=== PATIENT | female | born 1940 | race Caucasian/White ===

== ENCOUNTER 2016-06-21 14:50 | Inpatient (IN) | payer OTHER, MEDICAID ==
[2016-06-21] MEDS ORDERED: NS 1,000 ML BAG *FOR SEPSIS ORDER SET ONLY IV ONE (14:56)
--- NOTE | 2016-06-21 15:01 | EDPHY ---
H & P HPI/ROS: CHIEF COMPLAINT: Altered mental status, fever, hypoxia HISTORY OF PRESENT ILLNESS: The patient is a 75-year-old female brought by EMS from [facility] for confusion, hypoxia and fever. Her daughter went to visit her this morning and noticed that she seemed confused and cannot make it down the samuels as well as usual. She has a history of COPD but does not wear oxygen at baseline. When EMS arrived her oxygen sats were 71% room air. She also has a fever of 100.2 degrees. She does have a history of diabetes, falls and dementia but seems more confused than baseline. No focal deficits. No slurred speech or facial droop. No signs of trauma. REVIEW OF SYSTEMS: Unable to obtain secondary to condition. EXAM: GENERAL: Well-appearing, well-nourished and in no acute distress. HEAD: Atraumatic, normocephalic. EYES: Pupils equal round and reactive to light, extraocular movements intact, sclera anicteric, conjunctiva are normal. ENT: TMs normal, nares patent, oropharynx clear without exudates. Moist mucous membranes. NECK: Normal range of motion, supple without lymphadenopathy or JVD. LUNGS: Bilateral rhonchi HEART: Regular rate and rhythm without murmurs, rubs or gallops. ABDOMEN: Multiple scars, surgical hernia, Soft, nontender, normoactive bowel sounds. No guarding, no rebound. BACK: No CVA tenderness, no spinal tenderness, step-offs or deformities EXTREMITIES: Normal range of motion, no pitting or edema. No clubbing or cyanosis. NEUROLOGICAL: Cranial nerves II through XII grossly intact. Normal speech, normal gait. 5/5 strength, normal movement in all extremities, normal sensation PSYCH: unable to assess SKIN: Warm, dry, normal turgor, no visible rashes or lesions. Source: Patient Exam Limitations: No limitations - Medical/Surgical History Hx Asthma: No Hx Chronic Respiratory Disease: No Hx Diabetes: No Hx Cardiac Disease: No Hx Renal Disease: No Hx Cirrhosis: No Hx Alcoholism: No - Family History Significant Family History: Hypertension - Social History Alcohol Use: Sober Drug Use: None Constitutional: Initial Vital Signs Temperature (C) 36.9 C 06/21/16 15:15 Heart Rate 79 06/21/16 15:15 Respiratory Rate 17 06/21/16 15:15 Blood Pressure 103/68 06/21/16 15:15 O2 Sat (%) 98 06/21/16 15:15 O2 Delivery Mode [Procedural Nasal Cannula,Non-Rebreather Mask 3rd] O2 Delivery Mode [Procedural Non-Rebreather Mask 2nd] O2 Delivery Mode [Procedural Blowby 1st] O2 Delivery Mode Nasal Cannula O2 (L/minute) [Procedural 3rd] 15 O2 (L/minute) [Procedural 1st] 15 O2 (L/minute) 2 Allergies/Adverse Reactions: propoxyphene Allergy (Verified 06/21/16 15:11) Home Medications: Medication Instructions Recorded Acetaminophen [Tylenol ES 500 mg 500 mg PO Q6 PRN 06/21/16 (*)] Acetaminophen [Tylenol ES 500 mg 500 mg PO TID 06/21/16 (*)] Cholecalciferol Vit D3 [Vitamin D3 50,000 unit PO Q30D 06/21/16 (*)] Citalopram Hydrobromide 20 mg PO DAILY 06/21/16 [Citalopram HBr] LORazepam [Ativan (*)] 0.5 mg PO DAILY PRN 06/21/16 LORazepam [Ativan (*)] 0.5 mg PO QID 06/21/16 Levothyroxine [Synthroid 50 mcg 50 mcg PO DAILY@20 06/21/16 (*)] Lisinopril [Zestril 10 mg (*)] 10 mg PO DAILY 06/21/16 Memantine HCl [Namenda 10 mg] 10 mg PO BID 06/21/16 Metoprolol Tartrate [Lopressor 25 25 mg PO DAILY 06/21/16 mg (*)] QUEtiapine FUMARATE [Seroquel 25 12.5 mg PO DAILY 06/21/16 mg (*)] QUEtiapine FUMARATE [Seroquel 25 25 mg PO DAILY16 06/21/16 mg (*)] Sennosides/Docusate Sodium 1 each PO BID@,16 06/21/16 [Senokot-S (OTC)] Tiotropium Inhaler [Spiriva 1 inh IH DAILY 06/21/16 Inhaler] metFORMIN HCL [Glucophage 500 mg 500 mg PO DAILY18 06/21/16 (*)] metFORMIN HCL [Glucophage 850 mg 850 mg PO DAILY@08 06/21/16 (*)] Medical Decision Making - Diagnostics Imaging: X-ray: chest x-ray was obtained. I viewed the images myself on the PACS system. My interpretation of the images is: Left lower lobe pneumonia. The radiologist interpretation is left lower lobe pneumonia. Procedures: Procedure: Central line placement. Indication: Sepsis. Verbal informed consent was obtained from daughter, with the risks explained to include but not be limited to bleeding, infection, and collapsed lung. A timeout was observed and patients identity and correct procedure location confirmed. Full maximal sterile barrier technique was uses including cap, gown , sterile gloves, large sheet, hand washing and chlorhexidine prep. The area anesthetized with 1% lidocaine. The right IJ was punctured with a 19 gauge finder needle, unfortunately however guidewire was not able to be placed. Patient continued to move and had collapsible veins. Abandoned after 3 attempts CXR results: No pneumothorax. X-ray was interpreted by myself. The procedure was performed by myself. Procedure: Central line placement. Indication: Sepsis. Verbal informed consent was obtained from daughter, with the risks explained to include but not be limited to bleeding, infection, and collapsed lung. A timeout was observed and patients identity and correct procedure location confirmed. Full maximal sterile barrier technique was uses including cap, gown , sterile gloves, large sheet, hand washing and chlorhexidine prep. The area anesthetized with 1% lidocaine. The right femoral vein was punctured with a 19 gauge finder needle, then a triple-lumen was placed using standard Seldinger technique. There were no complications. Brown port was not returning blood but white and blue were and easily flushed well. The procedure was performed by myself. Procedure: Procedural sedation. Indication: Line placement. A pre-sedation evaluation was completed on the patient just prior to the procedure. Patient is an appropriate candidate for procedural sedation with a [ normal] 3-3-2 rule assessment and a Mallampati airway score of class 2. The risks of the sedation were discussed including but not limited to dysrhythmia, need for airway intervention or general anesthesia, disability, ; and verbal consent obtained. A timeout was observed and patient's identity confirmed. The patient was sedated with ketamine 150 mg IM. The patient was monitored with continuous pulse oximetry, capnography, and traffic monitor specialist. There were no complications and no significant hypoxemia. I remained at the bedside for the sedation. The total time I spent in the procedural sedation was 20 minutes. ED Course/Re-evaluation: 3:15 p.m. the patient's daughter has arrived. she states that the patient was acting confused and combative 2 weeks ago and improved after Levaquin for urinary tract infection. She is on day 9 or 10 of the Levaquin. Symptoms initially improved but then began to worsen again. She states that the patient has had a cough and coarse breath sounds for the last 2 days and is becoming gradually more confused. She also had diarrhea 2 days ago. I suspect pneumonia , sepsis and will add on a C diff. 4:20 p.m. the patient has pneumonia and sepsis. She is currently hypertensive. She has not received any fluids because of difficulty with IV access. I will perform a central line. 4:30 p.m. I attempted to place a central line in the patient's right IJ. The vein was punctured several times however the patient would move during attempts to insert guidewire. Also her vein collapse due to dehydration. After 3 attempts the site was abandoned and pressure was held and will obtain a chest x- ray. Will try again with a femoral line and sedation. 5:30 p.m. I placed a central line in the right femoral vein. We will begin resuscitation with IV fluids. I spoke with Dr. John Donato who will admit and requested Zosyn. 7:00 p.m. the patient is becoming slightly hypotensive. She has not yet received most for fluid bolus. Will continue with this. Will order Zaidi catheter for in and out monitoring. She does have collapse of her IVC with inhalation. We changed her to a step-down bed. Differential Diagnosis: Partial list of the Differential diagnosis considered include but were not limited to; pneumonia, sepsis, urinary tract infection, C diff and although unlikely based on the history and physical exam, I also considered head injury, stroke. Critical Care Time: Critical care time spent by me, Dr. Olguin exclusive with this patient was 45 minutes, exclusive of the PA time exclusive of procedures. The organ system that was at risk was cardiovascular and pulmonary and I gave IV fluids, consultation, antibiotics to prevent worsening of the patient's condition - Data Points Laboratory Results: Laboratory Results 06/21/16 15:21 06/21/16 15:21 06/21/16 06/21/16 06/21/16 15:21 15:21 15:21 WBC TNP RBC TNP Hgb TNP Hct TNP MCV TNP MCH TNP MCHC TNP RDW TNP Plt Count TNP MPV TNP Neut % (Auto) TNP Lymph % (Auto) TNP [place] % (Auto) TNP Eos % (Auto) TNP Baso % (Auto) TNP Nucleat RBC Rel Count TNP Absolute Neuts (auto) TNP Absolute Lymphs (auto) TNP Absolute Monos (auto) TNP Absolute Eos (auto) TNP Absolute Basos (auto) TNP Absolute Nucleated RBC TNP Immature Gran % TNP Immature Gran # TNP PT 13.2 SEC SEC (12.0-15.0) INR 1.01 (0.83-1.16) APTT 20.0 SEC L SEC (23.0-38.0) VBG Lactic Acid Sodium 138 mEq/L mEq/L (134-144) Potassium 4.6 mEq/L mEq/L (3.5-5.2) Chloride 103 mEq/L mEq/L (97-110) Carbon Dioxide 21 mEq/l L mEq/l (22-31) Anion Gap 14 mEq/L mEq/L (8-16) BUN 30 mg/dL H mg/dL (7-23) Creatinine 1.0 mg/dL mg/dL (0.6-1.0) Estimated GFR 54 Glucose 265 mg/dL H mg/dL (70-100) Calcium 9.8 mg/dL mg/dL (8.5-10.4) Total Bilirubin 1.1 mg/dL mg/dL (0.1-1.4) 06/21/16 15:11 WBC RBC Hgb Hct MCV MCH MCHC RDW Plt Count MPV Neut % (Auto) Lymph % (Auto) [place] % (Auto) Eos % (Auto) Baso % (Auto) Nucleat RBC Rel Count Absolute Neuts (auto) Absolute Lymphs (auto) Absolute Monos (auto) Absolute Eos (auto) Absolute Basos (auto) Absolute Nucleated RBC Immature Gran % Immature Gran # PT INR APTT VBG Lactic Acid 2.5 mmol/L H mmol/L (0.7-2.1) Sodium Potassium Chloride Carbon Dioxide Anion Gap BUN Creatinine Estimated GFR Glucose Calcium Total Bilirubin Medications Given: Discontinued Medications Acetaminophen (Tylenol) 1,000 mg PO EDNOW ONE Stop: 06/21/16 18:57 Last Admin: 06/21/16 18:56 Dose: 1,000 mg Piperacillin/Tazobactam/Dextrose (Zosyn (Premix)) 100 mls @ 200 mls/hr IV EDNOW ONE PRN Reason: Protocol Stop: 06/21/16 18:13 Last Admin: 06/21/16 18:51 Dose: 100 mls Ketamine HCl (Ketamine) 120 mg IM EDNOW ONE Stop: 06/21/16 17:18 Last Admin: 06/21/16 17:20 Dose: 120 mg Sodium Chloride (Ns *For Sepsis Order Set Only*) 0 ml IV EDNOW ONE Stop: 06/21/16 14:57 Last Admin: 06/21/16 17:49 Dose: 2,600 ml Departure - Departure Disposition: [facility] Inpatient Acute Clinical Impression: Pneumonia Qualifiers: Pneumonia type: due to unspecified organism Laterality: left Lung location: lower lobe of lung Qualified Code(s): J18.1 - Lobar pneumonia, unspecified organism Sepsis Qualifiers: Sepsis type: sepsis due to unspecified organism Qualified Code(s): A41.9 - Sepsis, unspecified organism Condition: Critical
[2016-06-21 15:40] LABS: ADD DIFF? NO; ADD MORPH? NO
[2016-06-21 15:48] LABS: INR 1.01 (0.83-1.16); PROTIME(PATIENT) 13.2 SEC (12.0-15.0)
[2016-06-21 16:06] LABS: BILIRUBIN,TOTAL 1.1 mg/dL (0.1-1.4); CALCIUM 9.8 mg/dL (8.5-10.4); CARBON DIOXIDE 21 mEq/l (22-31); CHLORIDE 103 mEq/L (97-110); GLOMERULAR FILTRATION RATE 54; GLUCOSE 265 mg/dL (70-100); SODIUM 138 mEq/L (134-144)
[2016-06-21] MEDS ORDERED: LORazepam 1 MG TAB ONE (16:17)
[2016-06-21 16:19] LABS: ANION GAP 14 mEq/L (8-16); POTASSIUM 4.6 mEq/L (3.5-5.2)
[2016-06-21 16:31] LABS: LACGHOST ORDER
[2016-06-21] MEDS ORDERED: KETAMINE 500 MG/10 ML VIAL ONE (17:02)
[2016-06-21] MEDS ORDERED: KETAMINE 500 MG/10 ML VIAL IM ONE (17:17)
[2016-06-21] MEDS ORDERED: PIPERACILLIN/TAZO 4.5 GM/DEX 100 ML IV ONE (17:44)
[2016-06-21 17:55] LABS: % IMMATURE GRANULYOCYTES 0.6 % (0.0-1.1); ADD DIFF? NO; ADD MORPH? NO; ADD SCAN? NO; ATYPICAL LYMPHOCYTE FLAG 0 (0-99); FRAGMENT RBC FLAG 0 (0-99); HEMATOCRIT 36.6 % (38.0-47.0); LEFT SHIFT FLG 0 (0-99); LIPEMIA HEMOLYSIS FLAG 80 (0-99); MEAN CELL HEMOGLOBIN 28.8 pg (27.9-34.1); MEAN CELL HEMOGLOBIN CONCENTR. 32.8 g/dL (32.4-36.7); PLATELET CLUMPS FLAG 0 (0-99); PLATELET COUNT 205 10^3/uL (150-400); RED BLOOD CELL COUNT 4.16 10^6/uL (4.18-5.33); RED CELL DISTRIBUTION WIDTH 14.4 % (11.5-15.2)
[2016-06-21] MEDS ORDERED: ACETAMINOPHEN 500 MG TAB ONE (18:09)
[2016-06-21] MEDS ORDERED: ACETAMINOPHEN 500 MG TAB PO ONE (18:56)
[2016-06-21 19:24] LABS: COLOR YELLOW; LEUKOCYTE ESTERASE,URINE 1+ (NEGATIVE); NITRITE,URINE NEGATIVE (NEGATIVE)
[2016-06-21 19:31] LABS: MUCUS TRACE /lpf (NONE-1+); RBC,URINE 25-50 /hpf (0-3); WBC,URINE 15-25 /hpf (0-3)
[2016-06-21] MEDS ORDERED: ONDANSETRON 4 MG/2 ML VIAL IVP PRN (20:13)
[2016-06-21] MEDS ORDERED: ONDANSETRON DISINTEGRATING 4 MG TAB PO PRN (20:13)
[2016-06-21] MEDS ORDERED: ACETAMINOPHEN 325 MG TAB PO PRN (20:13)
[2016-06-21] MEDS ORDERED: NS 1,000 ML IV SCH (20:15)
[2016-06-21] MEDS ORDERED: D50W 25 GM/50 ML SYR IVP PRN (20:18)
[2016-06-21] MEDS: LORazepam 0.5 MG TAB PO PRN (20:55)
[2016-06-21] MEDS ORDERED: NON-FORMULARY NEW DRUG (Memantine Hcl [Namenda 10 Mg] 10 MG) PO SCH (21:00)
--- NOTE | 2016-06-21 21:01 | GHP ---
[f rep st] HISTORY AND PHYSICAL DATE OF ADMISSION: 06/21/2016 CHIEF COMPLAINT: Altered mental status, cough. HISTORY OF PRESENT ILLNESS: This is a 75-year-old female, who has a history of dementia, as well as type 2 diabetes. She has been a resident at [facility] since last summer. Before that she was living in [place] and was in assisted living. Her daughter moved her here, as she was more diffic ult to take care of over there. She had been in her usual state of health until about 2 weeks ago, when the daughter noticed that she was more lethargic than normal. After several days of convincing staff, she was able to get a UA, which did show a urinary tract infection. She was eventually star andrzej on antibiotics. The daughter said that her lethargy had improved, but she has been having signi ficant cough over the last week. She has previously had both urinary tract infection and pneumonia. She had also been trying to get the [facility] to get a chest x-ray, which they did not. Today, she was more lethargic and somewhat hypoxic, and came into the Emergency Department. She has had a fever of 100.2, and room air saturation of 71%. She does have a history of COPD. REVIEW OF SYSTEMS: Unable to obtain secondary to patient's confusion. PAST MEDICAL HISTORY: 1. Chronic obstructive pulmonary disease. 2. Hypothyroidism. 3. Type 2 diabetes. 4. Hypertension. MEDICATIONS: Reviewed. SOCIAL HISTORY: Currently not smoking. She has a biological daughter who was adopted, and then cam e back into her life when she needed guardianship. She does have medical power of employment law attorney signed o [place] by the patient in 2012. FAMILY HISTORY: Both parents are . PHYSICAL EXAM: VITAL SIGNS: Afebrile. Blood pressure is 106/61, heart rate 81, oxygen saturation is 91% on room air. GENERAL: The patient is confused and agitated, but in no apparent distress. H EENT: Nonicteric sclerae. Extraocular movements intact. Dry mucous membranes. NECK: Supple. No thyromegaly. LUNGS: Good effort. Some slight rhonchi in the left base. CARDIOVASCULAR: Regular rate and rhythm. No murmurs, gallops. ABDOMEN: Positive bowel sounds. Soft. There is about a 6 cm superficial very hard mass around the epigastrium off the lower midline. Seems to have previous hernia surgery at the same place. EXTREMITIES: No clubbing, cyanosis, or edema. SKIN: Without r juan carlos, dry, intact. NEURO: Confused, agitated, but moving all 4 extremities equally. PSYCH: Normal affect. LABS: White blood cell count 17, hemoglobin 12, lactate was initially 2.5 came down to 1.1. Chemi stries normal except for elevated glucose. UA does show 1+ leukocyte esterase. Chest x-ray personally reviewed and interpreted does show probable left lower lobe pneumonia. ASSESSMENT: This is a 75-year-old female presenting with left lower lobe pneumonia in spite of bein g treated with Levaquin for a urinary tract infection. 1. Left lower lobe pneumonia. This possibly could be aspiration due to her altered mental status p reviously. We will cover with Zosyn. I am going to hold off on vancomycin at this time. 2. Severe sepsis. Lactate is normalized with IV fluids. 3. Dementia. 4. Type 2 diabetes. We will continue metformin. 5. Code status. The patient's medical decision maker feels like she would want to be a DNR, and we will change this. 6. Social. Family probably does not want her to go back to [facility], and we will get [facility] rahul ramírez to see her at that time. 7. Abdominal mass. We will get a CAT scan. It is quite hard to be just a scar. /[id number]/MODL
[2016-06-21] MEDS: HALOPERIDOL LACT 5 MG/ML INJ IVP PRN (21:32)
[2016-06-21] MEDS ORDERED: NS BOLUS 500 ML (Wide open) IV ONE (22:00)
[2016-06-21] MEDS: ACETAMINOPHEN 500 MG TAB PO SCH (22:15)
[2016-06-21] MEDS: MEMANTINE HCL 5 MG TAB PO SCH (22:17)
[2016-06-21] MEDS: LORazepam 0.5 MG TAB PO SCH (22:17)
[2016-06-22] MEDS: PIPERACILLIN/TAZO 3.375 GM/DEX 50 ML IV SCH ×5 (00:02→22:50)
[2016-06-22] MEDS: LORazepam 0.5 MG TAB PO SCH ×5 (04:38→22:47)
[2016-06-22 04:50] LABS: % IMMATURE GRANULYOCYTES 0.5 % (0.0-1.1); ABSOLUTE IMMATURE GRANULOCYTES 0.06 10^3/uL (0.00-0.10); ADD DIFF? NO; ADD MORPH? NO; ADD SCAN? NO; ATYPICAL LYMPHOCYTE FLAG 0 (0-99); FRAGMENT RBC FLAG 0 (0-99); HEMATOCRIT 31.6 % (38.0-47.0); HEMOGLOBIN 10.1 g/dL (12.6-16.3); LEFT SHIFT FLG 0 (0-99); LIPEMIA HEMOLYSIS FLAG 80 (0-99); MEAN CELL HEMOGLOBIN 29.4 pg (27.9-34.1); MEAN CELL VOLUME 91.9 fL (81.5-99.8); PLATELET CLUMPS FLAG 20 (0-99); PLATELET COUNT 161 10^3/uL (150-400); RED BLOOD CELL COUNT 3.44 10^6/uL (4.18-5.33); RED CELL DISTRIBUTION WIDTH 14.6 % (11.5-15.2)
[2016-06-22 05:22] LABS: ALANINE AMINOTRANSFERASE 24 IU/L (9-52); ALBUMIN 2.3 g/dL (3.5-5.0); ALKALINE PHOSPHATASE 64 IU/L (38-126); ANION GAP 8 mEq/L (8-16); ASPARTATE AMINOTRANSFERASE 10 IU/L (14-46); BILIRUBIN,TOTAL 0.7 mg/dL (0.1-1.4); CALCIUM 8.1 mg/dL (8.5-10.4); CARBON DIOXIDE 20 mEq/l (22-31); CHLORIDE 113 mEq/L (97-110); CREATININE 0.8 mg/dL (0.6-1.0); GLOMERULAR FILTRATION RATE > 60; GLUCOSE 130 mg/dL (70-100); POTASSIUM 3.8 mEq/L (3.5-5.2); SODIUM 141 mEq/L (134-144); TOTAL PROTEIN 4.7 g/dL (6.3-8.2)
[2016-06-22] MEDS ORDERED: metFORMIN HCL 850 MG TAB PO SCH (08:00)
[2016-06-22] MEDS ORDERED: LISINOPRIL 10 MG TAB PO SCH (09:00)
[2016-06-22] MEDS: TIOTROPIUM INHALER 18 MCG/DOSE 5 DOSE/MDI IH SCH (09:45)
[2016-06-22] MEDS: SENNOSIDES/DOCUSATE SODIUM TAB PO SCH ×2 (09:50→17:22)
[2016-06-22] MEDS: ACETAMINOPHEN 500 MG TAB PO SCH ×3 (09:50→22:46)
[2016-06-22] MEDS: CITALOPRAM 20 MG TAB PO SCH (09:50)
[2016-06-22] MEDS: INSULIN LISPRO 100 UNIT/ML SC SCH ×3 (09:50→17:29)
[2016-06-22] MEDS: ENOXAPARIN 40 MG/0.4 ML SYR SC SCH (09:51)
[2016-06-22] MEDS: METOPROLOL TARTRATE 25 MG TAB PO SCH (09:51)
[2016-06-22] MEDS: MEMANTINE HCL 5 MG TAB PO SCH ×2 (10:00→22:47)
[2016-06-22] MEDS: QUEtiapine FUMARATE 25 MG TAB PO SCH ×2 (10:00→17:22)
[2016-06-22] MEDS ORDERED: IOPAMIDOL (ISOVUE-300) 100 ML BTL IV ONE (11:07)
[2016-06-22] MEDS ORDERED: NS 1,000 ML IV ONE (11:27)
--- NOTE | 2016-06-22 13:54 | HOSPPROG ---
Hospitalist Progress Note Assessment/Plan: # sepsis: possible pulm vs UTI vs sinus - cont zosyn for now, follow cultures # hypotension - mild, responded to IVF # hypoxia - mild, seems to have recovered # COPD - cont spiriva # R pleural effusion - check echo # retroperitoneal LAD - follow as outpatient # sinusitis on CTH - on zosyn which would cover all but MRSA # DM2 - hold metformin ## chart reviewed CXR personally reviewed CTs reviewed Subjective: sleepy; discussed with her daughter Objective: Vital Signs Temp Pulse Resp BP Pulse Ox 37.1 C 58 L 26 H 91/47 L 100 06/22/16 12:00 06/22/16 12:00 06/22/16 12:00 06/22/16 12:00 06/22/16 12:00 Laboratory Results 06/22/16 04:30 06/22/16 04:30 06/21/16 06/22/16 06/23/16 05:59 05:59 05:59 Intake Total 4240 Output Total 400 Balance 3840 PT 13.2 SEC (12.0-15.0) 06/21/16 15:21 INR 1.01 (0.83-1.16) 06/21/16 15:21 - Physical Exam Constitutional: no apparent distress, appears nourished Cardiovascular: regular rate and rhythym, no murmur, rub, or gallop, systolic murmur Respiratory: no respiratory distress, no rales or rhonchi, clear to auscultation Gastrointestinal: normoactive bowel sounds, soft, non-tender abdomen, no palpable masses ICD10 Worksheet Patient Problems: Problems Problem Status Onset Pneumonia Acute Sepsis Acute
[2016-06-22] MEDS ORDERED: metFORMIN HCL 500 MG TAB PO SCH (18:00)
[2016-06-22] MEDS: LEVOTHYROXINE 50 MCG TAB PO SCH (22:47)
[2016-06-23] MEDS: PIPERACILLIN/TAZO 3.375 GM/DEX 50 ML IV SCH ×3 (04:30→18:21)
[2016-06-23] MEDS: LORazepam 0.5 MG TAB PO SCH ×4 (04:30→22:14)
[2016-06-23 04:39] LABS: % IMMATURE GRANULYOCYTES 0.5 % (0.0-1.1); ABSOLUTE IMMATURE GRANULOCYTES 0.04 10^3/uL (0.00-0.10); ADD DIFF? NO; ADD MORPH? NO; ADD SCAN? NO; ATYPICAL LYMPHOCYTE FLAG 0 (0-99); FRAGMENT RBC FLAG 0 (0-99); HEMATOCRIT 30.9 % (38.0-47.0); HEMOGLOBIN 9.8 g/dL (12.6-16.3); LEFT SHIFT FLG 0 (0-99); LIPEMIA HEMOLYSIS FLAG 80 (0-99); MEAN CELL HEMOGLOBIN 28.9 pg (27.9-34.1); MEAN CELL HEMOGLOBIN CONCENTR. 31.7 g/dL (32.4-36.7); MEAN CELL VOLUME 91.2 fL (81.5-99.8); MEAN PLATELET VOLUME 10.9 fL (8.7-11.7); PLATELET CLUMPS FLAG 0 (0-99); PLATELET COUNT 164 10^3/uL (150-400); RED BLOOD CELL COUNT 3.39 10^6/uL (4.18-5.33); RED CELL DISTRIBUTION WIDTH 14.6 % (11.5-15.2)
[2016-06-23 04:53] LABS: ANION GAP 5 mEq/L (8-16); CALCIUM 8.2 mg/dL (8.5-10.4); CARBON DIOXIDE 22 mEq/l (22-31); CHLORIDE 114 mEq/L (97-110); CREATININE 0.7 mg/dL (0.6-1.0); GLOMERULAR FILTRATION RATE > 60; GLUCOSE 95 mg/dL (70-100); POTASSIUM 3.9 mEq/L (3.5-5.2); SODIUM 141 mEq/L (134-144)
[2016-06-23] MEDS: INSULIN LISPRO 100 UNIT/ML SC SCH ×3 (08:18→18:21)
--- NOTE | 2016-06-23 09:00 | CPEKG ---
Heart Rate: 87 RR Interval: 690 QRSD Interval: 90 QT Interval: 384 QTC Interval: 462 QRS Westwood: 189 T Wave [place]wood: 38 EKG Severity - ABNORMAL ECG - EKG Impression: ATRIAL FIB/FLUTTER, A-RATE 272 EKG Impression: RIGHT AXIS DEVIATION EKG Impression: INFERIOR INFARCT, AGE INDETERMINATE Electronically Signed By: Derian Pantoja 23-Jun-2016 09:10:31
[2016-06-23] MEDS: MEMANTINE HCL 5 MG TAB PO SCH ×2 (09:08→22:15)
[2016-06-23] MEDS: SENNOSIDES/DOCUSATE SODIUM TAB PO SCH ×2 (09:08→15:51)
[2016-06-23] MEDS: CITALOPRAM 20 MG TAB PO SCH (09:08)
[2016-06-23] MEDS: ACETAMINOPHEN 500 MG TAB PO SCH ×3 (09:08→22:22)
[2016-06-23] MEDS: QUEtiapine FUMARATE 25 MG TAB PO SCH ×2 (09:08→15:52)
[2016-06-23] MEDS: ENOXAPARIN 40 MG/0.4 ML SYR SC SCH (09:09)
--- NOTE | 2016-06-23 09:13 | ECHO ---
[id number] + + [address] : : [place] [address] : : [phone] + + Adult Echocardiographic Report + ------+ :Name: ASAD AVILAEsequiel Date: 06/23/2016 07:58 AM : : Hospital Admission Number: [id number] Locatio n: 242: :: 1940 Gender: Female Height: 65 in : :Age: 75 yrs Race: WH Weight: 127 lb : :Reason For Study: Pleural effusion/new atrial fibrillation : : BSA: 1.6 meters 2 : + ------+ MMode/2D Measurements \T\ Calculations LVIDd: 4.1 cm EDV(Teich): 72.8 mlAo root diam: LVOT diam: 2.0 cm 3.6 cm LVOT area: LA dimension: 3.0 cm2 5.1 cm LVLd ap4: 6.8 cm SV(MOD-sp4): EDV(MOD-sp4): 20.0 ml 31.0 ml LVLs ap4: 5.9 cm ESV(MOD-sp4): 11.0 ml EF(MOD-sp4): 64.5 % Normal Measurement Values: + + :LVIDd (3.5-5.7cm) IVSd (0.6-1.1cm) LVPWd (0.6-1.1cm) Aortic Root (2.0-3.7cm)Left Atrium (1.5-4.0cm): :LV Vol(d) (76-115ml) LV Vol(s) (29-48ml) Ejec Fraction (50-65%)PV Oziel (0.6- 1.2m/s) TV Oziel (0.4-1.0m/s) : :MV E Oziel (0.8-1.0m/s)MV A Oziel (0.3-1.0m/s)LVOT Oziel (0.7-1.2m/s) Asc Ao Oziel ( 0.9-1.8m/s) : + + Doppler Measurements \T\ Calculations MV E max oziel: Ao mean P.0 mmHgLV V1 mean PG: SV(LVOT): 120.9 cm/sec Ao V2 mean: 10.0 mmHg 129.2 ml MV A max oziel: 125.0 cm/sec LV V1 mean: 50.8 cm/sec Ao V2 VTI: 31.7 cm 142.0 cm/sec MV E/A: 2.4 DOTTIE(I,D): 4.1 cm2 LV V1 VTI: 43.0 cm TR max oziel: 223.9 cm/sec TR max P.0 mmHg RAP systole: 5.0 mmHg RVSP(TR): 25.0 mmHg Left Ventricle The left ventricle is normal in size. There is borderline concentric left ventricular hypertrophy. The left ventricle is hyperdynamic. Ejection Fraction = 70-75%. No regional wall motion abnormalities noted. Right Ventricle The right ventricle is normal in size and function. Atria The left atrial size is normal. Right atrial size is normal. Mitral Valve There is systolic anterior motion of the chordal apparatus. There is moderate mitral annular calcification. There is no evidence of mitral valve prolapse. There is no mitral valve stenosis. There is mild mitral regurgitation. Tricuspid Valve Normal tricuspid valve. There is mild tricuspid regurgitation. Right ventricular systolic pressure is normal. Aortic Valve Moderate AV calcification. Mild subvalvular LVOTgradient (mean 10mmHG.). There is no aortic insufficiency. Pulmonic Valve The pulmonic valve is normal in structure and function. There is no pulmonic valvular regurgitation. Great Vessels The aortic root is normal size. Pericardium/Pleural There is no pericardial effusion. Conclusion A complete two-dimensional transthoracic echocardiogram was performed (2D, M-mode, Doppler and color flow Doppler). The rhythm is atrial fibrillation The left ventricle is hyperdynamic. There is borderline concentric left ventricular hypertrophy. Ejection Fraction = 70-75%. There is systolic anterior motion of the chordal apparatus. There is moderate mitral annular calcification. There is mild mitral regurgitation. There is mild tricuspid regurgitation. Right ventricular systolic pressure is normal. Moderate AV calcification. Mild subvalvular LVOTgradient (mean 10mmHG.) No prior echo Final Reading Physician: Dr Domenica Barron electronically signed on 06/23/2016 09:12 AM Ordering Physician: Steve Cordova Performed By: Juli Dickinson, SHAKA
[2016-06-23] MEDS: TIOTROPIUM INHALER 18 MCG/DOSE 5 DOSE/MDI IH SCH (09:42)
--- NOTE | 2016-06-23 09:58 | HOSPPROG ---
Hospitalist Progress Note Assessment/Plan: # sepsis: source unclear, still consider UTI vs mild pna - improving on empiric zosyn - cultures still NGTD - notably UCx taken after abx # a-fib: new dx; rate controlled - asa for CVA ppx for now, will discuss with dtr - had previously been on metop - will restart when BPs will tolerate # hypotension - resolved since yesterday, holding anti-htn's # hypoxia - mild, seems to have recovered # COPD - cont spiriva # retroperitoneal LAD - follow as outpatient # sinusitis on CTH - on zosyn which would cover all but MRSA # DM2 - hold metformin, glucs ok today # dementia - home meds; daughter involved; was living at [facility] ## echo reviewed ECG personally reviewed - a-fib Subjective: seems more alert today Objective: Vital Signs Temp Pulse Resp BP Pulse Ox 36.7 C 96 24 H 109/66 94 06/23/16 07:18 06/23/16 07:18 06/23/16 07:18 06/23/16 07:18 06/23/16 07:18 Laboratory Results 06/23/16 04:25 06/23/16 04:25 06/22/16 06/23/16 06/24/16 05:59 05:59 05:59 Intake Total 4240 3808 Output Total 400 1050 Balance 3840 2758 PT 13.2 SEC (12.0-15.0) 06/21/16 15:21 INR 1.01 (0.83-1.16) 06/21/16 15:21 - Physical Exam Constitutional: no apparent distress, appears nourished Ears, Nose, Mouth, Throat: moist mucous membranes Cardiovascular: regular rate and rhythym, systolic murmur, No irregularly irregular, No diastolic murmur, No tachycardia Respiratory: no respiratory distress, no rales or rhonchi, clear to auscultation Gastrointestinal: normoactive bowel sounds, soft, non-tender abdomen, no palpable masses ICD10 Worksheet Patient Problems: Problems Problem Status Onset Pneumonia Acute Sepsis Acute
[2016-06-23] MEDS: ASPIRIN EC 81 MG TAB PO SCH (10:00)
[2016-06-23] MEDS ORDERED: ALTEPLASE 2 MG VIAL IVP PRN (10:09)
[2016-06-23] MEDS: LEVALBUTEROL 0.63 MG/3 ML DEYVIAL IH SCH ×2 (11:02→16:29)
--- NOTE | 2016-06-23 13:15 | GCON ---
[f rep st] CONSULTATION PULMONARY CRITICAL CARE CONSULTATION DATE OF CONSULTATION: 06/23/2016 REASON FOR CONSULTATION: Pneumonia, sepsis. HISTORY: The patient is a 75-year-old with a history of relatively severe dementia. She was admitt ed 2 days ago with decreased mental status. She is a resident of [facility]. She recently was d iagnosed with a urinary tract infection there and started on antibiotics. On admission here, chest x-ray and CT scan of the abdomen showed basilar infiltrates, consistent with pneumonia. Over the week, she has had a cough. On admission, mental status was decreased. She was hypoxemic and feb rile. She was admitted to the intensive care unit with severe sepsis. Lactate was initially elevat ed, but came down with intravenous fluids. She did not require pressor therapy. She was started on Zosyn. Other problems include atrial fibrillation, which may be paroxysmal. She has underlying ty pe 2 diabetes. Since admission, she has improved. She is off oxygen. Blood pressure has normalized. She continue s to have some cough and mucus. Fevers have resolved. She is currently on room air. PAST MEDICAL HISTORY: Remarkable for type 2 diabetes, chronic obstructive pulmonary disease for [facility] she takes Spiriva, systemic hypertension, and hypothyroidism. MEDICATIONS ON ADMISSION: Included Namenda, Spiriva, quetiapine, metoprolol, metformin, Ativan, lis inopril, levothyroxine, citalopram, and p.r.n. medications. DRUG ALLERGIES: Propoxyphene. SOCIAL HISTORY: The patient is a resident of [facility]. She smoked cigarettes previously. She has a supportive daughter who does not want the patient to return to [facility] secondary to car e issues regarding her mother. FAMILY HISTORY: Noncontributory. REVIEW OF SYSTEMS: Largely unobtainable. She denies pain or problems at the moment. PHYSICAL EXAMINATION: GENERAL: Reveals an elderly woman who is in a chair in the intensive care un . She is on room air. VITAL SIGNS: Blood pressure is 110/66, heart rate 72 with atrial fibrilla tion on the monitor, saturations are 94%. She is afebrile. Zaidi catheter is in place. A triple-l umen catheter is in place in the right groin. HEENT: Remarkable for somewhat dry mucous membranes. There is no jugular venous distention. PULMONARY: The chest reveals diminished breath sounds rich aterally with some rales at the bases. There are no consolidative changes. There are no wheezes. With voluntary cough, there are no significant rhonchi. CARDIAC: The heart is irregular. A systol ic murmur is present. ABDOMEN: Soft, nontender. Bowel sounds are present. A Zaidi catheter is in place with adequate urine output. Input is greater than output since admission by approximately 6 L. EXTREMITIES: There is no significant peripheral edema in the lower extremities. There are no c ords, no tenderness. DATABASE: CT scan and chest x-ray are as outlined above, showing bilateral lower lobe consolidation /atelectasis with some small associated pleural effusions. Abdominal CT showed some left pararenal edema and some small left retroperitoneal studding or nodule s in the area of a previous left nephrectomy. CT scan of the head was unremarkable for acute disease. LABORATORY: White blood cell count is 8500, down from 17,000 on admission. Hematocrit is 31, down from 36. Platelets are normal. PT and PTT were normal on admission. The last serum lactate was 1. 1. Sodium is 141, potassium 3.9, BUN 12, with a creatinine of 0.7. Glucose is 117, calcium 8.2. U rinalysis on admission showed white cells and red cells. Urine culture and blood cultures are pendi ng. ASSESSMENT: 1. Pneumonia. The patient has bilateral infiltrates with consolidation and atelectasis, and small associated pleural effusions. Clinically, she is doing very well on Zosyn. She has had some cough and mucus, however, this appears to be improving. She is on room air. Bronchodilator therapy may b e of benefit for her. Current antibiotics would appear to be appropriate. 2. Urinary tract infection with possible kidney infection based on her CT scan of the abdomen with edema seen, however, she does not have CVA tenderness and clinically is doing quite well. She is st atus post nephrectomy. 3. Sepsis. Her course is consistent with severe sepsis. Lactate and blood pressure have both norm alized with fluids. Cultures are negative. Her source is either urinary, pulmonary, or both. 4. History of chronic obstructive pulmonary disease. She is on Spiriva. She has no significant ev idence of exacerbation. Xopenex will be added to her regimen. 5. History of dementia. She will need to go back to a longterm facility. Her daughter does not want her to go back to [facility]. Discharge planning is aware. 6. History of other medical problems, including type 2 diabetes, previous nephrectomy, etc. 7. Atrial fibrillation. The patient does have rate control of atrial fibrillation, which is either new or could possibly be paroxysmal or preexisting. She is on aspirin for stroke prophylaxis. Ful l-dose anticoagulation is contraindicated. PLAN AND RECOMMENDATIONS: The patient will be kept in the intensive care unit as a step-down patien t for now. Antibiotics and bronchopulmonary therapies will be continued. Xopenex will be added to her regimen. Spiriva will be continued. Intravenous fluids can be both capped when she is taking a dequate orals. Her usual medications will be continued. Further plans and recommendations will be made based on her progress over the next 12-24 hours. /[id number]/MODL
[2016-06-23] MEDS: LORazepam 0.5 MG TAB PO PRN (19:05)
[2016-06-23] MEDS: HALOPERIDOL LACT 5 MG/ML INJ IVP PRN ×2 (20:09→20:22)
[2016-06-23] MEDS ORDERED: LORazepam 2 MG/ML INJ IVP PRN (21:00)
[2016-06-23] MEDS: LEVOTHYROXINE 50 MCG TAB PO SCH (22:15)
[2016-06-24] MEDS: PIPERACILLIN/TAZO 3.375 GM/DEX 50 ML IV SCH ×3 (00:01→12:32)
[2016-06-24] MEDS: LEVALBUTEROL 0.63 MG/3 ML DEYVIAL IH SCH ×3 (00:15→11:52)
[2016-06-24] MEDS: LORazepam 0.5 MG TAB PO SCH ×4 (05:12→19:46)
[2016-06-24] MEDS: INSULIN LISPRO 100 UNIT/ML SC SCH ×3 (09:14→17:23)
[2016-06-24] MEDS: ACETAMINOPHEN 500 MG TAB PO SCH ×3 (10:03→20:35)
[2016-06-24] MEDS: SENNOSIDES/DOCUSATE SODIUM TAB PO SCH ×2 (10:03→17:22)
[2016-06-24] MEDS: ASPIRIN EC 81 MG TAB PO SCH (10:04)
[2016-06-24] MEDS: MEMANTINE HCL 5 MG TAB PO SCH ×2 (10:04→19:46)
[2016-06-24] MEDS: QUEtiapine FUMARATE 25 MG TAB PO SCH ×2 (10:04→17:21)
[2016-06-24] MEDS: CITALOPRAM 20 MG TAB PO SCH (10:04)
[2016-06-24] MEDS: ENOXAPARIN 40 MG/0.4 ML SYR SC SCH (10:04)
[2016-06-24] MEDS: TIOTROPIUM INHALER 18 MCG/DOSE 5 DOSE/MDI IH SCH (10:22)
[2016-06-24] MEDS ORDERED: LEVALBUTEROL 0.63 MG/3 ML DEYVIAL IH PRN (12:54)
--- NOTE | 2016-06-24 12:54 | SOAPPROG ---
SOAP Progress Note Assessment/Plan: Assessment: Sepsis: Resolving Bibasilar pneumonia: Quite small, almost in apparent on x-ray with little in the way of pulmonary symptoms. Doing well on antibiotics. Cough and congestion resolving. Hypoxemia resolved. Atrial fibrillation: Possibly new onset versus paroxysmal. On aspirin for stroke prevention. Not a candidate for anticoagulation. History of COPD, without evidence of exacerbation. Altered mental status. Secondary to pneumonia and urinary tract infection. UTI: Pyuria present on admission. Cultures obtained after initiation of antibiotics thus we will not have a positive culture result. Underlying dementia. At baseline. Do not resuscitate Disposition: prison facilities other than [facility] are being investigated, apparently available. Plan: Recommend changing to oral antibiotics today: Augmentin, to complete a 10 day course of antibiotics. Continue bronchopulmonary therapies as needed. Okay to discharge to a care home facility today from a pulmonary standpoint. Spiriva can be continued as an outpatient with p.r.n. nebulized Xopenex if needed. I will sign off at this point. Please of an L5 can be of further assistance. Subjective: Somnolent secondary to Haldol. Arouses, denies shortness of breath or pain. Denies pulmonary congestion Objective: Vital Signs Temp Pulse Resp BP Pulse Ox 37.3 C 93 23 H 133/80 H 98 06/24/16 12:22 06/24/16 12:22 06/24/16 12:22 06/24/16 12:22 06/24/16 12:22 Laboratory Results 06/23/16 04:25 06/23/16 04:25 06/23/16 06/24/16 06/25/16 05:59 05:59 05:59 Intake Total 3808 1573 Output Total 1050 2275 Balance 2758 -702 PT 13.2 SEC (12.0-15.0) 06/21/16 15:21 INR 1.01 (0.83-1.16) 06/21/16 15:21 CXR: Minimal bibasilar infiltrates, otherwise clear. Physical Exam - Physical Exam General Appearance: no apparent distress, thin, other (Sleepy, arouses, responds ) EENT: PERRL/EOMI, other (On room air, 98%) Neck: normal inspection (No JVD), No lymphadenopathy (R), No lymphadenopathy (L) , No thyromegaly Respiratory: lungs clear, decreased breath sounds (At bases), No rales, No rhonchi, No wheezing Cardiac/Chest: regular rate, rhythm, systolic murmur Abdomen: normal bowel sounds, non-tender, soft Pelvic Exam: other (Zaidi catheter in place) Skin: normal color, warm/dry Lymphatic: no adenopathy Extremities: No pedal edema Neuro/Psych: no motor/sensory deficits (Moves all extremities), cognition abnormalities (Without change, pleasant, cooperative. Underlying dementia), No oriented x 3 ICD10 Worksheet Patient Problems: Problems Problem Status Onset Pneumonia Acute Sepsis Acute
--- NOTE | 2016-06-24 15:50 | HOSPPROG ---
Hospitalist Progress Note Assessment/Plan: # sepsis: source unclear, still consider UTI vs mild pna - improving on empiric zosyn - cultures still NGTD - notably UCx was taken after abx # a-fib: new dx; rate controlled; I have not been able to discuss AC yet with her daughter - asa for CVA ppx for now, will need to discuss with daughter - restart metop # agitated delirium - zyprexa tonight # hypotension - resolved since yesterday, holding anti-htn's # hypoxia - mild, seems to have recovered # COPD - cont spiriva # retroperitoneal LAD - follow as outpatient; discussed with dtr # sinusitis on CTH - on zosyn which would cover all but MRSA # DM2 - hold metformin, glucs ok today # dementia - home meds; daughter involved; was living at [facility] ## discussed with ICU team and Dr Choudhary on rounds Subjective: received haldol overnight; daughter looking at SNFs today Objective: Vital Signs Temp Pulse Resp BP Pulse Ox 37.3 C 93 23 H 133/80 H 98 06/24/16 12:22 06/24/16 12:22 06/24/16 12:22 06/24/16 12:22 06/24/16 12:22 Microbiology 06/22/16 13:34 Urine Culture - Final Urine,Catheterized Laboratory Results 06/23/16 04:25 06/23/16 04:25 06/23/16 06/24/16 06/25/16 05:59 05:59 05:59 Intake Total 3808 1573 Output Total 1050 2275 Balance 2758 -702 PT 13.2 SEC (12.0-15.0) 06/21/16 15:21 INR 1.01 (0.83-1.16) 06/21/16 15:21 - Physical Exam Constitutional: appears nourished, No uncomfortable Cardiovascular: regular rate and rhythym, no murmur, rub, or gallop Respiratory: no respiratory distress, no rales or rhonchi, clear to auscultation Gastrointestinal: normoactive bowel sounds, soft, non-tender abdomen, no palpable masses ICD10 Worksheet Patient Problems: Problems Problem Status Onset Pneumonia Acute Sepsis Acute
[2016-06-24] MEDS: AMOXICILLIN/CLAVULANATE POT 875/125 MG TAB PO SCH (19:45)
[2016-06-24] MEDS: LEVOTHYROXINE 50 MCG TAB PO SCH (19:46)
[2016-06-24] MEDS ORDERED: OLANZapine 2.5 MG TAB PO SCH (21:00)
[2016-06-25] MEDS: LORazepam 0.5 MG TAB PO SCH ×3 (05:10→16:17)
[2016-06-25 08:06] VITALS: TEMP 97.3
[2016-06-25] MEDS: TIOTROPIUM INHALER 18 MCG/DOSE 5 DOSE/MDI IH SCH (08:30)
[2016-06-25] MEDS: INSULIN LISPRO 100 UNIT/ML SC SCH ×2 (09:10→13:05)
[2016-06-25] MEDS: ACETAMINOPHEN 500 MG TAB PO SCH (10:00)
[2016-06-25] MEDS: ENOXAPARIN 40 MG/0.4 ML SYR SC SCH (10:05)
[2016-06-25] MEDS: AMOXICILLIN/CLAVULANATE POT 875/125 MG TAB PO SCH (10:06)
[2016-06-25] MEDS: SENNOSIDES/DOCUSATE SODIUM TAB PO SCH ×2 (10:06→16:20)
[2016-06-25] MEDS: ASPIRIN EC 81 MG TAB PO SCH (10:06)
[2016-06-25] MEDS: MEMANTINE HCL 5 MG TAB PO SCH (10:06)
[2016-06-25] MEDS: QUEtiapine FUMARATE 25 MG TAB PO SCH ×2 (10:06→16:18)
[2016-06-25] MEDS: CITALOPRAM 20 MG TAB PO SCH (10:06)
[2016-06-25] MEDS: METOPROLOL TARTRATE 25 MG TAB PO SCH (10:18)
[2016-06-25 13:18] VITALS: BP 149/74; PULSE 70; RESP 16; O2SAT 96
--- NOTE | 2016-06-25 13:22 | PDIAF ---
- Diagnosis Diagnosis: Sepsis - pneumonia vs. UTI Code Status: Do Not Resuscitate - Medication Management Discharge Medications: Medications to Continue on Transfer Acetaminophen [Tylenol ES 500 mg (*)] 500 mg PO Q6 PRN 06/21/16 [Last Taken Unknown] Acetaminophen [Tylenol ES 500 mg (*)] 500 mg PO TID 06/21/16 [Last Taken 08:00] Cholecalciferol Vit D3 [Vitamin D3 (*)] 50,000 unit PO Q30D 06/21/16 [Last Taken 05/24/16] Citalopram Hydrobromide [Citalopram HBr] 20 mg PO DAILY 06/21/16 [Last Taken 04/08] LORazepam [Ativan (*)] 0.5 mg PO DAILY PRN 06/21/16 [Last Taken Unknown] LORazepam [Ativan (*)] 0.5 mg PO QID 06/21/16 [Last Taken 06/21/16 12:00] Levothyroxine [Synthroid 50 mcg (*)] 50 mcg PO DAILY@20 06/21/16 [Last Taken Unknown] Lisinopril [Zestril 10 mg (*)] 10 mg PO DAILY 06/21/16 [Last Taken 06/21/16] Memantine HCl [Namenda 10 mg] 10 mg PO BID 06/21/16 [Last Taken 06/21/16 08:00] Metoprolol Tartrate [Lopressor 25 mg (*)] 25 mg PO DAILY 06/21/16 [Last Taken ] QUEtiapine FUMARATE [Seroquel 25 mg (*)] 12.5 mg PO DAILY 06/21/16 [Last Taken 06/21/16] QUEtiapine FUMARATE [Seroquel 25 mg (*)] 25 mg PO DAILY16 06/21/16 [Last Taken Unknown] Sennosides/Docusate Sodium [Senokot-S] 1 each PO BID@08,16 06/21/16 [Last Taken 06/21/16 08:00] Tiotropium Inhaler [Spiriva Inhaler (RX)] 1 inh IH DAILY 06/21/16 [Last Taken ] metFORMIN HCL [Glucophage 500 mg (*)] 500 mg PO DAILY18 06/21/16 [Last Taken Unknown] metFORMIN HCL [Glucophage 850 mg (*)] 850 mg PO DAILY@08 06/21/16 [Last Taken ] Amoxicillin/Clavulanate Pot [Augmentin 875 MG TAB (*)] 875 mg PO BID #0 tab 08/06 [Last Taken Unknown] Apixaban [Eliquis] 5 mg PO BID #0 tab 06/25/16 [Last Taken Unknown] Halfway Antibiotic Stop Date: 07/01/16 (Augmentin complete date) Discharge Medications: Refer to the Discharge Home Medication list for PRN reason. - Orders Services needed: Physical Therapy, Occupational Therapy Diet Recommendation: no restrictions on diet - Follow Up Care Current Providers and Referrals: Patient,NotPresent [Unknown] - As per Instructions
--- NOTE | 2016-06-25 17:58 | GDS ---
[f rep st] DISCHARGE SUMMARY DISCHARGE DIAGNOSES: 1. Sepsis due to urinary tract infection versus aspiration pneumonia. 2. Atrial fibrillation, new onset. 3. Dementia, with metabolic encephalopathy and agitated delirium. 4. Chronic obstructive pulmonary disease. 5. Retroperitoneal lymphadenopathy. 6. Diabetes, type 2. HISTORY/HOSPITAL COURSE: The patient is a 75-year-old female who was admitted with sepsis. Source was unclear whether it may be UTI versus mild pneumonia. She was treated empirically with Zosyn. H er cultures were negative. She was transitioned to oral Augmentin, and continued to do well. She was diagnosed with new-onset atrial fibrillation. Her daughter is in favor of full anticoagulat ion, so she was started on Eliquis. She is rate controlled on metoprolol. She did have some problems with sundowning. Did get a dose of Zyprexa in the hospital, but we will hold at discharge, and defer to her intermediate providers whether or not that is going to be needed as an ongoing basis. She came to us from [facility], but daughter has chosen to move her to [facility] upon hospital discharge. DISCHARGE MEDICATIONS: Please see computer's record for full detailed list. New medications: 1. Augmentin 875 mg p.o. twice daily until July 01. 2. Eliquis 5 mg p.o. twice daily. 3. Remainder of medications will remain as they were prior to admission. ADDITIONAL DISCHARGE INSTRUCTIONS: Outpatient followup for enlarged retroperitoneal nodules. Greater than 30 minutes' time was spent arranging this discharge. Patient seen and examined by me deo vargas the day of discharge. /[id number]/MODL
[2016-06-25] MEDS ORDERED: APIXABAN 5 MG TAB PO SCH (21:00)
== END 2016-06-25 17:05 | DRG 871 ==
LOC: OBSVTOIN 20:13 → F2N 20:16
PROVIDERS: ADMIT Internal Medicine; ATTEND Internal Medicine
PROC: 02HV33Z Insertion of Infusion Device into Superior Vena Cava, Percutaneous Approach (ICD-10-PCS; principal; 2016-06-23)
DX: A41.9 Sepsis, unspecified organism (principal); J69.0 Pneumonitis due to inhalation of food and vomit; N39.0 Urinary tract infection, site not specified; R09.02 Hypoxemia; I48.91 Unspecified atrial fibrillation; F03.90 Unspecified dementia, unspecified severity, without behavioral disturbance, psychotic disturbance, mood disturbance, and anxiety; E11.9 Type 2 diabetes mellitus without complications; J44.9 Chronic obstructive pulmonary disease, unspecified; E03.9 Hypothyroidism, unspecified; R59.1 Generalized enlarged lymph nodes; J32.9 Chronic sinusitis, unspecified; Z87.891 Personal history of nicotine dependence; Z90.5 Acquired absence of kidney; Z66 Do not resuscitate
CPT/HCPCS: 96365; 97116-GP; 97161-GP; 97166-GO; 97530-GP; 97535-GO; C1751; G8978-GP-CM; G8979-GP-CK; G8987-GO-CL; G8988-GO-CK; J1650; J1815; J2543; Q9967

== ENCOUNTER 2016-06-29 15:08 | Emergency (ER) | payer OTHER, MEDICAID ==
--- NOTE | 2016-06-29 15:20 | EDPHY ---
H & P Time Seen by Provider: 06/29/16 15:17 HPI/ROS: CHIEF COMPLAINT: Head injury, history of dementia HISTORY OF PRESENT ILLNESS: The patient presents to the ED from [facility] after she fell at the longterm facility. The patient does have a history of dementia. She is anticoagulated with Eliquis. The patient sustained a failure large hematoma over her right eyebrow. She was sent to the ED for further evaluation. In the ER, the patient denies headache, she complains of mild neck discomfort. She denies chest pain, shortness of breath, back pain, numbness, weakness or other concerns. REVIEW OF SYSTEMS: A comprehensive 10 point review of systems is otherwise negative aside from elements mentioned in the history of present illness. Source: Patient Exam Limitations: No limitations, Physical impairment - Medical/Surgical History Hx Asthma: No Hx Chronic Respiratory Disease: No Hx Diabetes: No Hx Cardiac Disease: No Hx Renal Disease: No Hx Cirrhosis: No Hx Alcoholism: No Hx HIV/AIDS: No Hx Splenectomy or Spleen Trauma: No Other PMH: PNA, ABDOMINAL HERNAI/SURGERY, type 2 diabetes,DEMENTia,copd,high chol, hypothyroid,insomnia, freq falls - Social History Smoking Status: Unknown if ever smoked - Physical Exam Exam: General Appearance: Alert, no distress Head: Large hematoma over left eyebrow Eyes: Pupils equal, round, reactive ENT, Mouth: No hemotympanum, no oral trauma Neck: In C-collar Respiratory: No chest wall tender, subcutaneous air, lungs clear bilaterally Cardiovascular: Regular rate and rhythm Abdomen: Abdomen is soft and nontender, pelvis stable Skin: No lacerations, No abrasion Back: No midline T/L/S pain Extremities: Nontender, full range of motion Neurological: Alert and oriented x1, demented at baseline, anticoagulated Constitutional: Initial Vital Signs Temperature (C) 36.8 C 06/29/16 15:08 Heart Rate 69 06/29/16 15:08 Respiratory Rate 20 06/29/16 15:08 Blood Pressure 122/91 H 06/29/16 15:08 O2 Sat (%) 95 06/29/16 15:08 O2 Delivery Mode Room Air Allergies/Adverse Reactions: propoxyphene Allergy (Verified 06/29/16 15:17) Home Medications: Medication Instructions Recorded Acetaminophen [Tylenol ES 500 mg 500 mg PO Q6 PRN 06/21/16 (*)] Acetaminophen [Tylenol ES 500 mg 500 mg PO TID 06/21/16 (*)] Cholecalciferol Vit D3 [Vitamin D3 50,000 unit PO Q30D 06/21/16 (*)] Citalopram Hydrobromide 20 mg PO DAILY 06/21/16 [Citalopram HBr] LORazepam [Ativan (*)] 0.5 mg PO DAILY PRN 06/21/16 LORazepam [Ativan (*)] 0.5 mg PO QID 06/21/16 Levothyroxine [Synthroid 50 mcg 50 mcg PO DAILY@20 06/21/16 (*)] Lisinopril [Zestril 10 mg (*)] 10 mg PO DAILY 06/21/16 Memantine HCl [Namenda 10 mg] 10 mg PO BID 06/21/16 Metoprolol Tartrate [Lopressor 25 25 mg PO DAILY 06/21/16 mg (*)] QUEtiapine FUMARATE [Seroquel 25 12.5 mg PO DAILY 06/21/16 mg (*)] QUEtiapine FUMARATE [Seroquel 25 25 mg PO DAILY16 06/21/16 mg (*)] Sennosides/Docusate Sodium 1 each PO BID@08,16 06/21/16 [Senokot-S] Tiotropium Inhaler [Spiriva 1 inh IH DAILY 06/21/16 Inhaler (RX)] metFORMIN HCL [Glucophage 500 mg 500 mg PO DAILY18 06/21/16 (*)] metFORMIN HCL [Glucophage 850 mg 850 mg PO DAILY@08 06/21/16 (*)] Amoxicillin/Clavulanate Pot 875 mg PO BID #0 tab 06/25/16 [Augmentin 875 MG TAB (*)] Apixaban [Eliquis] 5 mg PO BID #0 tab 06/25/16 Medical Decision Making - Diagnostics Imaging: Imaging Impressions Cervical Spine CT 06/29/16 15:14 Impression: 1. No acute posttraumatic intracranial abnormality identified. 2. Left forehead hematoma. 2. CT Cervical Spine Without Contrast (extended study), 1334 History: Trauma. Neck pain. Fall. Technique: The patient was scanned 3 times due to motion. Multislice helical CT through the cervical spine without contrast from the skull base to T1. Soft tissue and bone evaluation is performed. Sagittal and coronal reconstructions are obtained and reviewed. Dose reduction techniques were utilized. Findings: Cervical alignment is anatomic. No fracture or dislocation is identified. The relationship between skull base and C1 is normal. The C1-C2 articulation is normally aligned. There is arthritic change of the joint between the anterior ring of C1 and the odontoid process. There is degenerative spurring of the right C2-C3 facet joint. The odontoid process is intact. Disk spaces maintain their normal height, except for degenerative narrowing at C5-C6 , where there are small posterior osteophytes present. Facet joints are normally aligned. The cervical thoracic junction is normally aligned. Soft tissue window evaluation does not show evidence of epidural or prevertebral hematoma. Impression: Patient motion makes this study less than optimal however , no obvious acute posttraumatic abnormality is identified. Final concordant results called to Veronica Casas at 4:06 PM. Final results are concordant with the initial interpretation. General information for patients regarding this examination can be found at [email or web address]. If you have questions or comments about this report, please contact me at [phone] (hospital) or [phone] (cell). Head CT 06/29/16 15:14 Impression: 1. No acute posttraumatic intracranial abnormality identified. 2. Left forehead hematoma. 2. CT Cervical Spine Without Contrast (extended study), 1334 History: Trauma. Neck pain. Fall. Technique: The patient was scanned 3 times due to motion. Multislice helical CT through the cervical spine without contrast from the skull base to T1. Soft tissue and bone evaluation is performed. Sagittal and coronal reconstructions are obtained and reviewed. Dose reduction techniques were utilized. Findings: Cervical alignment is anatomic. No fracture or dislocation is identified. The relationship between skull base and C1 is normal. The C1-C2 articulation is normally aligned. There is arthritic change of the joint between the anterior ring of C1 and the odontoid process. There is degenerative spurring of the right C2-C3 facet joint. The odontoid process is intact. Disk spaces maintain their normal height, except for degenerative narrowing at C5-C6 , where there are small posterior osteophytes present. Facet joints are normally aligned. The cervical thoracic junction is normally aligned. Soft tissue window evaluation does not show evidence of epidural or prevertebral hematoma. Impression: Patient motion makes this study less than optimal however , no obvious acute posttraumatic abnormality is identified. Final concordant results called to Veronica Casas at 4:06 PM. Final results are concordant with the initial interpretation. General information for patients regarding this examination can be found at [email or web address]. If you have questions or comments about this report, please contact me at [phone] (hospital) or [phone] (cell). ED Course/Re-evaluation: The patient presents to the ED after a mechanical fall. She has a large hematoma over left head. Given her history of dementia age in anticoagulant use , a CT scan of the head was ordered to exclude intracranial hemorrhage. Fortunately the results of this study were normal. Patient has no gross abnormalities on her cervical spine CT scan. Given the patient's lack of midline tenderness I do feel comfortable clearing her cervical spine clinically and radiographically at this point time. The patient did undergo serial examinations in the ED and denies additional traumatic injury. Patient was re-evaluated at 4:15 p.m.. Results have been conveyed to patient's family. She will be discharged back to her longterm facility. Differential Diagnosis: Differential diagnosis considered includes intracranial hemorrhage, skull fracture, cervical spine fracture, concussion Departure - Departure Disposition: Home, Routine, Self-Care Clinical Impression: Concussion Condition: Good Instructions: Concussion (ED) Additional Instructions: 1. Please return to the ED for severe headache, vomiting, abnormal behavior or other concerns. 2. Follow up as scheduled with your primary care provider.
[2016-06-29 16:51] VITALS: BP 150/78; PULSE 80; RESP 16; TEMP 98.6; O2SAT 96
== END 2016-06-29 16:58 | disposition home or self-care (01) ==
LOC: EDUNIT#
DX: S06.0X0A Concussion without loss of consciousness, initial encounter (principal); E11.9 Type 2 diabetes mellitus without complications; J44.9 Chronic obstructive pulmonary disease, unspecified; Z79.84 Long term (current) use of oral hypoglycemic drugs; W18.39XA Other fall on same level, initial encounter; Y92.129 Unspecified place in nursing home as the place of occurrence of the external cause

== ENCOUNTER 2016-06-30 14:56 | Inpatient (IN) | payer OTHER, MEDICAID ==
[2016-06-30] MEDS ORDERED: OLANZapine DISINTEGR 5 MG TAB PO ONE (15:13)
--- NOTE | 2016-06-30 15:16 | EDPHY ---
H & P Time Seen by Provider: 06/30/16 15:16 HPI/ROS: CHIEF COMPLAINT: Aggressive behavior, history of dementia HISTORY OF PRESENT ILLNESS: The patient is referred to the emergency department by her primary care provider. The patient reportedly is referred here secondary to escalating aggressive behavior. The patient was seen in the emergency department yesterday after mechanical fall. She had a CT scan of her head and cervical spine which were negative. In talking with the physician caring for the patient she has been increasingly hostile and agitated over the past week at the senior care. She reportedly was roaming the halls and getting aggressive with staff and other patients. They are unable willing to take her back in her current state of health. The patient denies acute complaints. Her history is limited by dementia. The patient does complain of tenderness over her left eye where she has a hematoma. REVIEW OF SYSTEMS: A comprehensive 10 point review of systems is otherwise negative aside from elements mentioned in the history of present illness. Source: Patient Exam Limitations: No limitations - Medical/Surgical History Hx Asthma: No Hx Chronic Respiratory Disease: No Hx Diabetes: No Hx Cardiac Disease: No Hx Renal Disease: No Hx Cirrhosis: No Hx Alcoholism: No Hx HIV/AIDS: No Hx Splenectomy or Spleen Trauma: No Other PMH: PNA, ABDOMINAL HERNAI/SURGERY, type 2 diabetes,DEMENTia,copd,high chol, hypothyroid,insomnia, freq falls - Family History Significant Family History: No pertinent family hx - Social History Smoking Status: Unknown if ever smoked - Physical Exam Exam: General Appearance: Alert, no distress Head: Ecchymosis noted over left eyebrow Eyes: Pupils equal, round, reactive ENT, Mouth: No hemotympanum, no oral trauma Neck: Nontender, trachea midline Respiratory: No chest wall tender, subcutaneous air, lungs clear bilaterally Cardiovascular: Regular rate and rhythm Abdomen: Abdomen is soft and nontender, pelvis stable Skin: No lacerations, No abrasion Back: No midline T/L/S pain Extremities: Nontender, full range of motion Neurological: A&Ox2, hyper-stimulated, normal motor function, normal sensory exam Constitutional: Initial Vital Signs Temperature (C) 36.9 C 06/30/16 15:07 Heart Rate 87 06/30/16 15:07 Respiratory Rate 14 06/30/16 15:07 Blood Pressure 123/71 H 06/30/16 15:07 O2 Sat (%) 94 04/10/17 15:07 O2 Delivery Mode Room Air Allergies/Adverse Reactions: propoxyphene Allergy (Verified 06/30/16 15:07) Home Medications: Medication Instructions Recorded Acetaminophen [Tylenol ES 500 mg 500 mg PO Q6 PRN 06/21/16 (*)] Acetaminophen [Tylenol ES 500 mg 500 mg PO TID 06/21/16 (*)] Cholecalciferol Vit D3 [Vitamin D3 50,000 unit PO Q30D 06/21/16 (*)] Citalopram Hydrobromide 20 mg PO DAILY 06/21/16 [Citalopram HBr] LORazepam [Ativan (*)] 0.5 mg PO DAILY PRN 06/21/16 LORazepam [Ativan (*)] 0.5 mg PO QID 06/21/16 Levothyroxine [Synthroid 50 mcg 50 mcg PO DAILY@20 06/21/16 (*)] Lisinopril [Zestril 10 mg (*)] 10 mg PO DAILY 06/21/16 Memantine HCl [Namenda 10 mg] 10 mg PO BID 06/21/16 Metoprolol Tartrate [Lopressor 25 25 mg PO DAILY 06/21/16 mg (*)] QUEtiapine FUMARATE [Seroquel 25 12.5 mg PO DAILY 06/21/16 mg (*)] QUEtiapine FUMARATE [Seroquel 25 25 mg PO DAILY16 06/21/16 mg (*)] Sennosides/Docusate Sodium 1 each PO BID@,16 PRN 06/21/16 [Senokot-S] Tiotropium Inhaler [Spiriva 1 inh IH DAILY 06/21/16 Inhaler (RX)] metFORMIN HCL [Glucophage 500 mg 500 mg PO DAILY18 06/21/16 (*)] metFORMIN HCL [Glucophage 850 mg 850 mg PO DAILY@08 06/21/16 (*)] Amoxicillin/Clavulanate Pot 875 mg PO BID #0 tab 06/25/16 [Augmentin 875 MG TAB (*)] Apixaban [Eliquis] 5 mg PO BID #0 tab 06/25/16 Medical Decision Making ED Course/Re-evaluation: The patient received 5 mg of p.o. Zyprexa. I reviewed the results of her records from yesterday. I spoke with the patient's daughter. She has had a very difficult course since her recent hospitalization. She has been at both [facility] and [facility]. The mother has been having problems with increasing confusion and her daughter has voice concerns about the care she is receiving. The patient has been on Seroquel and was on Zyprexa while in the hospital. The patient was discharged home only on Seroquel. The patient apparently has been roaming the samuels and combative with patients and staff at [facility]. They have reported that they feel the patient is to high acuity for their facility and the daughter is concerned about the ability of the facility to care for her mother. The patient respond to 5 mg Zyprexa and is completely somnolent. At this point time she will need to be readmitted to the hospital so the case management can re-evaluated her placement situation and some consideration should be given to her current psychotropic medications. I discussed the case with Dr. Zechariah Montaño who is on-call for the hospitalist service and will admit the patient this evening. Differential Diagnosis: Differential diagnosis considered includes urinary tract infection, metabolic abnormality, intracranial hemorrhage, skull fracture, medication side effect, dementia, psychosis, delirium - Data Points Laboratory Results: Laboratory Results 06/30/16 15:23 06/30/16 15:23 06/30/16 06/30/16 06/30/16 17:45 15:23 15:23 WBC 14.49 10^3/uL H 10^3/uL (3.80-9.50) RBC 3.86 10^6/uL L 10^6/uL (4.18-5.33) Hgb 11.2 g/dL L g/dL (12.6-16.3) Hct 33.3 % L % (38.0-47.0) MCV 86.3 fL fL (81.5-99.8) MCH 29.0 pg pg (27.9-34.1) MCHC 33.6 g/dL g/dL (32.4-36.7) RDW 14.2 % % (11.5-15.2) Plt Count 360 10^3/uL 10^3/uL (150-400) MPV 10.2 fL fL (8.7-11.7) Neut % (Auto) Not Reported Lymph % (Auto) Not Reported Miller % (Auto) Not Reported Eos % (Auto) Not Reported Baso % (Auto) Not Reported Nucleat RBC Rel Count 0.1 % % (0.0-0.2) Absolute Neuts (auto) Not Reported Absolute Lymphs (auto) Not Reported Absolute Monos (auto) Not Reported Absolute Eos (auto) Not Reported Absolute Basos (auto) Not Reported Absolute Nucleated RBC 0.02 10^3/uL H 10^3/uL (0-0.01) Immature Gran % Not Reported Seg Neutrophils % 68 % % Band Neutrophils % 1 % % Lymphocytes % 21 % % Monocytes % 6 % % Eosinophils % 2 % % Metamyelocytes % 1 % % Myelocytes % 1 % % Immature Gran # Not Reported Absolute Seg Neuts 9.85 10^/uL H 10^/uL (1.70-6.50) Absolute Band Neuts 0.14 10^3/uL 10^3/uL (0.00-0.70) Absolute Lymphocytes 3.04 10^3/uL H 10^3/uL (1.00-3.00) Absolute Monocytes 0.87 10^3/uL H 10^3/uL (0.30-0.80) Absolute Eosinophils 0.29 10^3/uL 10^3/uL (0.03-0.40) Absolute Metamyelocyte 0.14 10^3/mL H 10^3/mL (0.00-0.00) Absolute Myelocytes 0.14 10^3/mL H 10^3/mL (0.00-0.00) Nucleated RBCs 1 /100 WBC H /100 WBC (0-0) Atypical Lymphocytes 1+ H Platelet Estimate ADEQUATE (ADEQ) Polychromasia 1+ H Microcytic Cells 1+ H Smear Review By Pending Sodium 136 mEq/L mEq/L (134-144) Potassium 4.3 mEq/L mEq/L (3.5-5.2) Chloride 103 mEq/L mEq/L (97-110) Carbon Dioxide 23 mEq/l mEq/l (22-31) Anion Gap 10 mEq/L mEq/L (8-16) BUN 11 mg/dL mg/dL (7-23) Creatinine 0.8 mg/dL mg/dL (0.6-1.0) Estimated GFR > 60 Glucose 153 mg/dL H mg/dL (70-100) Calcium 9.5 mg/dL mg/dL (8.5-10.4) Urine Color COLORLESS Urine Appearance CLEAR Urine pH 9.0 H (5.0-7.5) Ur Specific [place] 1.003 (1.002-1.030) Urine Protein NEGATIVE (NEGATIVE) Urine Ketones NEGATIVE (NEGATIVE) Urine Blood NEGATIVE (NEGATIVE) Urine Nitrate NEGATIVE (NEGATIVE) Urine Bilirubin NEGATIVE (NEGATIVE) Urine Urobilinogen NEGATIVE EU EU (0.2-1.0) Ur Leukocyte Esterase TRACE H (NEGATIVE) Urine RBC NONE SEEN /hpf /hpf (0-3) Urine WBC 1-3 /hpf /hpf (0-3) Ur Epithelial Cells NONE SEEN /lpf /lpf (NONE-1+) Ur Culture Indicated? INDICATED H (NI) Urine Glucose NEGATIVE (NEGATIVE) Medications Given: Discontinued Medications Olanzapine (Zyprexa Zydis) 5 mg PO EDNOW ONE Stop: 06/30/16 15:14 Last Admin: 06/30/16 15:15 Dose: 5 mg Departure - Departure Disposition: [facility] Acute Clinical Impression: Delirium, Dementia Condition: Fair
[2016-06-30 15:58] LABS: ABSOLUTE NRBC COUNT 0.02 10^3/uL (0-0.01); ADD DIFF? YES; ADD MORPH? NO; ADD SCAN? NO; ATYPICAL LYMPHOCYTE FLAG 0 (0-99); FRAGMENT RBC FLAG 0 (0-99); HEMATOCRIT 33.3 % (38.0-47.0); HEMOGLOBIN 11.2 g/dL (12.6-16.3); LEFT SHIFT FLG 20 (0-99); LIPEMIA HEMOLYSIS FLAG 80 (0-99); MEAN CELL HEMOGLOBIN CONCENTR. 33.6 g/dL (32.4-36.7); MEAN CELL VOLUME 86.3 fL (81.5-99.8); MEAN PLATELET VOLUME 10.2 fL (8.7-11.7); NRBC-AUTO% 0.1 % (0.0-0.2); PLATELET CLUMPS FLAG 0 (0-99); PLATELET COUNT 360 10^3/uL (150-400); RED BLOOD CELL COUNT 3.86 10^6/uL (4.18-5.33); RED CELL DISTRIBUTION WIDTH 14.2 % (11.5-15.2)
[2016-06-30 16:01] LABS: ANION GAP 10 mEq/L (8-16); CALCIUM 9.5 mg/dL (8.5-10.4); CARBON DIOXIDE 23 mEq/l (22-31); CHLORIDE 103 mEq/L (97-110); CREATININE 0.8 mg/dL (0.6-1.0); GLOMERULAR FILTRATION RATE > 60; GLUCOSE 153 mg/dL (70-100); POTASSIUM 4.3 mEq/L (3.5-5.2); SODIUM 136 mEq/L (134-144)
[2016-06-30 16:39] LABS: PLATELET ESTIMATE ADEQUATE (ADEQ)
[2016-06-30 16:42] LABS: MICROCYTES 1+; POLYCHROMASIA 1+
[2016-06-30 17:56] LABS: COLOR COLORLESS; LEUKOCYTE ESTERASE,URINE TRACE (NEGATIVE); NITRITE,URINE NEGATIVE (NEGATIVE)
[2016-06-30 18:07] LABS: RBC,URINE NONE SEEN /hpf (0-3)
[2016-06-30] MEDS ORDERED: ACETAMINOPHEN 500 MG TAB PO PRN (22:47)
[2016-06-30] MEDS ORDERED: ONDANSETRON 4 MG/2 ML VIAL IVP PRN (22:52)
[2016-06-30] MEDS ORDERED: D50W 25 GM/50 ML SYR IVP PRN (22:53)
--- NOTE | 2016-07-01 02:32 | GHP ---
[f rep st] HISTORY AND PHYSICAL DATE OF ADMISSION: 06/30/2016 CHIEF COMPLAINT: Agitation. HISTORY OF PRESENT ILLNESS: The patient is a 75-year-old female who was just discharged from the [facility] on 06/25 when she was seen for sepsis with source being urinary tract infection versus aspira tion pneumonia. She was discharged on oral Augmentin. All of her cultures were negative. Per [facility] ly request, she was discharged to [facility] rather than [facility] as she is a long-term care re sident. She has not been doing well since transfer to [facility] with escalating aggressive behavio r. She was seen in the emergency room yesterday after a mechanical fall and had a head CT and a cer vical spine CT that were unremarkable, and she was sent back to [facility]. She has now been sent b ack to the ER for a 2nd time due to ongoing aggressive behavior at more than [facility] can handle. They are unwilling to take her back until this is managed behaviorally. She is roaming the halls a [facility], very aggressive towards staff and the other patients. She got a one-time dose of Zypr exa in the emergency room and is now quite sedated. PAST MEDICAL HISTORY: 1. Atrial fibrillation. 2. Dementia. 3. COPD. 4. Diabetes, type 2. 5. Hypertension. MEDICATIONS: Please see computer record for full detailed list. ALLERGIES: Propoxyphene. SOCIAL HISTORY: No current smoking or alcohol. Previous history is unknown. She is currently at [facility]. Her daughter is her power of bankruptcy attorney. Her daughter was adopted to [facility] family and did reconnect with the patient as an adult and has assumed power of bankruptcy attorney since it has been necessary. REVIEW OF SYSTEMS: Complete review of systems is unobtainable due to patient's altered mental statu s. FAMILY HISTORY: Unobtainable due to patient's altered mental status. PHYSICAL EXAMINATION: GENERAL: Well-developed, well-nourished female, in no acute distress. VITAL SIGNS: Temperature is 36.4, pulse 58, blood pressure 148/76, saturating 93% on room air. EYES: N ormal conjunctivae. Pupils equal, round, reactive to light. ENT: Normal ears and nose. Hearing i ntact. Normal lips and teeth. Oropharynx moist. NECK: Trachea midline. No thyromegaly. CHEST: Normal respiratory effort. LUNGS: Clear to auscultation bilaterally. CARDIOVASCULAR: Regular ra te and rhythm. No murmur. No lower extremity edema. ABDOMEN: Soft, nontender. No hepatosplenome kimberly. She does have some firmness inferior to her umbilicus of unclear etiology. SKIN: Warm, dry, intact, without rash. MUSCULOSKELETAL: No cyanosis or clubbing. She is moving all extremities, a lthough sedated, so unable to fall formal exam. NEURO: There is no facial droop. There is no obvi ous deficit, but again, unable to follow commands at this time. Unable to assess sensation due to a ltered mental status. PSYCH: She is sleeping but arousable. Nonverbal, not answering questions. Status post Zyprexa sedation. LABS: White count 14.49, hematocrit 33.3, platelets 360. Sodium 136, potassium 4.3, chloride 103, bicarb 23, BUN 11, creatinine 0.8, glucose 153. Urinalysis is negative. This case was discussed with Dr. Casas, emergency room physician, regarding emergency room course, medical records review. Recent medical records were reviewed including recent emergency room visit and recent imaging studies including CT scan and cervical spine CT scan. ASSESSMENT AND PLAN: 1. Metabolic encephalopathy. I do not think she has active infection but she does have a new leuko cytosis. Will recheck her chest x-ray in the morning. 2. Dementia with agitated delirium. She is on a very small dose of standing Seroquel. In an attem pt not to mix different antipsychotics, we will stick with Seroquel. I will add 25 mg every 4 hours as needed, and depending on her needs here, will likely need to increase her standing dose. Given her very low dose to start, we have quite a bit of room for escalation. Although there is a black b ox warning regarding antipsychotics in this population, given her severe behavioral change, I think it will be medically necessary and the risk will need to be assumed. 3. Recent aspiration pneumonia. She was supposed to continue Augmentin through tomorrow. Will con tinue that and stop as planned unless alternative infection is diagnosis. 4. Atrial fibrillation. Continue metoprolol and Eliquis. 5. Diabetes, type 2. Continue metformin. 6. Deep venous thrombosis prophylaxis. She is chronically on Eliquis, which will be continued. CODE STATUS: Her daughter did make her a DNR on her last hospitalization, so that will be continued . ADMISSION STATUS: She is medically complex. Anticipate greater than 2 midnights will be required f or stabilization. /[id number]/MODL
[2016-07-01] MEDS: LORazepam 0.5 MG TAB PO SCH ×4 (06:39→21:39)
[2016-07-01] MEDS ORDERED: SENNOSIDES/DOCUSATE SODIUM TAB PO PRN (08:00)
[2016-07-01] MEDS: AMOXICILLIN/CLAVULANATE POT 875/125 MG TAB PO SCH ×2 (08:56→21:38)
[2016-07-01] MEDS: metFORMIN HCL 850 MG TAB PO SCH (08:56)
[2016-07-01] MEDS: QUEtiapine FUMARATE 25 MG TAB PO SCH ×2 (08:57→17:20)
[2016-07-01] MEDS: ACETAMINOPHEN 500 MG TAB PO SCH ×3 (08:57→21:38)
[2016-07-01] MEDS: LISINOPRIL 10 MG TAB PO SCH (08:58)
[2016-07-01] MEDS: CITALOPRAM 20 MG TAB PO SCH (08:58)
[2016-07-01] MEDS: METOPROLOL TARTRATE 25 MG TAB PO SCH (08:58)
[2016-07-01] MEDS: APIXABAN 5 MG TAB PO SCH ×2 (08:58→21:38)
[2016-07-01] MEDS: MEMANTINE HCL 5 MG TAB PO SCH ×2 (09:04→21:38)
[2016-07-01] MEDS: TIOTROPIUM INHALER 18 MCG/DOSE 5 DOSE/MDI IH SCH (09:19)
[2016-07-01] MEDS: INSULIN REGULAR HUMAN 100 UNIT/ML SC SCH ×4 (10:46→21:39)
--- NOTE | 2016-07-01 10:47 | WOCRNPDOC ---
WOCRN Advanced Assessment Note - Skin Integrity Problem, Advanced Assess Generalized Buttock Dressing Type: Open to Air Exudate Amount: None Exudate Characteristic(s): None Kristy Wound Tissue: Blanching, Intact Kristy Wound Swelling: None Skin Integrity Problem Comment: Consulted for possible breakdown on buttocks. Upon assessment, skin is dry, blanching, and intact, w/ no breakdown noted. Wound care does not need to follow.
[2016-07-01 13:28] LABS: % IMMATURE GRANULYOCYTES 1.4 % (0.0-1.1); ABSOLUTE IMMATURE GRANULOCYTES 0.26 10^3/uL (0.00-0.10); ADD DIFF? NO; ADD MORPH? NO; ADD SCAN? NO; ATYPICAL LYMPHOCYTE FLAG 10 (0-99); FRAGMENT RBC FLAG 0 (0-99); HEMATOCRIT 39.9 % (38.0-47.0); HEMOGLOBIN 12.6 g/dL (12.6-16.3); LEFT SHIFT FLG 10 (0-99); LIPEMIA HEMOLYSIS FLAG 80 (0-99); MEAN CELL HEMOGLOBIN 29.1 pg (27.9-34.1); MEAN CELL HEMOGLOBIN CONCENTR. 31.6 g/dL (32.4-36.7); MEAN CELL VOLUME 92.1 fL (81.5-99.8); MEAN PLATELET VOLUME 10.1 fL (8.7-11.7); PLATELET CLUMPS FLAG 0 (0-99); PLATELET COUNT 380 10^3/uL (150-400); RED BLOOD CELL COUNT 4.33 10^6/uL (4.18-5.33); RED CELL DISTRIBUTION WIDTH 14.6 % (11.5-15.2)
--- NOTE | 2016-07-01 13:41 | HOSPPROG ---
Hospitalist Progress Note Assessment/Plan: 75 yo F with hx of dementia with recent admission with sepsis and LLL PNA admitted again from NH this time with agitation # acute encephalopathy: with underlying chronic dementia but admitted with agitated delerium in the setting of switching to another facility after her last hospital discharge. No clear e/o infection or metabolic derangements though trace leuk esterase on UA and wbc elevated. CXR pending. Here she has not been agitated at all, will need to get further information from family/ facility. # dementia: underlying above, suspect agitated delerium possibly related to change in facility, has associated behavioral disturbances, on seroquel and ativan at baseline # recent aspiration pna: bedside swallow not concerning, repeat cxr pending, still being treated with augmentin for now # a fib: recent dx, started on eliquis at that time, rate controlled # dm2: continue op meds including metformin and ssi # h/o copd: without e/o acute exacerbation, not hypoxic # DNR # dispo: has been recently at [place], will likely return there if possible Patient new to my care. Old records reviewed and summarized as above. Care plan reviewed with patients daughter present at bedside. Subjective: no significant overnight events, patient remains confused but calm, eating breakfast Objective: Vital Signs Temp Pulse Resp BP Pulse Ox 36.3 C 53 L 18 144/84 H 90 L 07/01/16 08:00 07/01/16 08:00 07/01/16 09:23 07/01/16 08:00 07/01/16 09:23 awake alert ecchymosis over left eye op clear rrr no mrg cta b to ant exam soft nt nd no cce warm dry well perfused encephalopathic ICD10 Worksheet Patient Problems: Problems Problem Status Onset Pneumonia Acute Sepsis Acute Delirium Acute Dementia Acute
[2016-07-01 14:55] LABS: ANION GAP 12 mEq/L (8-16); CALCIUM 9.9 mg/dL (8.5-10.4); CARBON DIOXIDE 23 mEq/l (22-31); CHLORIDE 103 mEq/L (97-110); CREATININE 0.8 mg/dL (0.6-1.0); GLOMERULAR FILTRATION RATE > 60; GLUCOSE 122 mg/dL (70-100); POTASSIUM 5.1 mEq/L (3.5-5.2); SODIUM 138 mEq/L (134-144)
[2016-07-01] MEDS: metFORMIN HCL 500 MG TAB PO SCH (18:28)
[2016-07-01] MEDS: LEVOTHYROXINE 50 MCG TAB PO SCH (21:39)
[2016-07-01] MEDS ORDERED: PNEUMOC 13-VAL CONJ-DIP CRM/PF 0.5 ML SYR IM ONE (23:43)
[2016-07-02] MEDS ORDERED: PNEUMOC 13-VAL CONJ-DIP CRM/PF 0.5 ML SYR IM ONE (04:27)
[2016-07-02 05:11] LABS: % IMMATURE GRANULYOCYTES 1.5 % (0.0-1.1); ABSOLUTE IMMATURE GRANULOCYTES 0.18 10^3/uL (0.00-0.10); ADD DIFF? NO; ADD MORPH? NO; ADD SCAN? NO; ATYPICAL LYMPHOCYTE FLAG 0 (0-99); FRAGMENT RBC FLAG 0 (0-99); HEMATOCRIT 34.8 % (38.0-47.0); HEMOGLOBIN 11.2 g/dL (12.6-16.3); LEFT SHIFT FLG 10 (0-99); LIPEMIA HEMOLYSIS FLAG 80 (0-99); MEAN CELL HEMOGLOBIN 29.4 pg (27.9-34.1); MEAN CELL HEMOGLOBIN CONCENTR. 32.2 g/dL (32.4-36.7); MEAN CELL VOLUME 91.3 fL (81.5-99.8); PLATELET CLUMPS FLAG 0 (0-99); PLATELET COUNT 321 10^3/uL (150-400); RED BLOOD CELL COUNT 3.81 10^6/uL (4.18-5.33); RED CELL DISTRIBUTION WIDTH 14.8 % (11.5-15.2)
[2016-07-02 05:34] LABS: ANION GAP 13 mEq/L (8-16); CALCIUM 9.6 mg/dL (8.5-10.4); CARBON DIOXIDE 23 mEq/l (22-31); CHLORIDE 105 mEq/L (97-110); CREATININE 0.9 mg/dL (0.6-1.0); GLOMERULAR FILTRATION RATE > 60; GLUCOSE 113 mg/dL (70-100); POTASSIUM 4.8 mEq/L (3.5-5.2); SODIUM 141 mEq/L (134-144)
[2016-07-02] MEDS: LORazepam 0.5 MG TAB PO SCH ×4 (06:05→19:23)
[2016-07-02] MEDS: metFORMIN HCL 850 MG TAB PO SCH (09:05)
[2016-07-02] MEDS: MEMANTINE HCL 5 MG TAB PO SCH ×2 (09:05→19:23)
[2016-07-02] MEDS: CITALOPRAM 20 MG TAB PO SCH (09:05)
[2016-07-02] MEDS: QUEtiapine FUMARATE 25 MG TAB PO SCH ×2 (09:06→17:15)
[2016-07-02] MEDS: LISINOPRIL 10 MG TAB PO SCH (09:06)
[2016-07-02] MEDS: ACETAMINOPHEN 500 MG TAB PO SCH ×3 (09:07→19:23)
[2016-07-02] MEDS: METOPROLOL TARTRATE 25 MG TAB PO SCH (09:07)
[2016-07-02] MEDS: APIXABAN 5 MG TAB PO SCH ×2 (09:07→19:23)
[2016-07-02] MEDS: INSULIN REGULAR HUMAN 100 UNIT/ML SC SCH ×4 (09:55→21:17)
[2016-07-02] MEDS: TIOTROPIUM INHALER 18 MCG/DOSE 5 DOSE/MDI IH SCH (10:29)
--- NOTE | 2016-07-02 16:52 | HOSPPROG ---
Hospitalist Progress Note Assessment/Plan: 75 yo F with hx of dementia with recent admission with sepsis and LLL PNA admitted again from NH this time with agitation # acute encephalopathy: with underlying chronic dementia but admitted with agitated delerium in the setting of switching to another facility after her last hospital discharge. No clear e/o infection or metabolic derangements though trace leuk esterase on UA and wbc elevated with culture pending. CXR negative. Here she has not been agitated at all. Suspect related to aggravation she was having at SNF per report from patients daughter. # dementia: underlying above, suspect agitated delerium possibly related to change in facility, has associated behavioral disturbances, on seroquel and ativan at baseline # recent aspiration pna: bedside swallow not concerning, repeat cxr negative, completed full course of augmentin today # a fib: recent dx, started on eliquis at that time, rate controlled # dm2: continue op meds including metformin and ssi # h/o copd: without e/o acute exacerbation, not hypoxic # DNR # dispo: patient not able to return to snf she was at most recently, looking at [facility] possibly in am care plan reveiwed with CM, patients daughter Subjective: no signficant overnight events, patient ambulating, eager to dc Objective: Vital Signs Temp Pulse Resp BP Pulse Ox 36.2 C 63 16 111/74 93 07/02/16 07:15 07/02/16 16:00 07/02/16 16:00 07/02/16 16:00 07/02/16 16:00 Laboratory Results 07/02/16 04:32 07/02/16 04:32 awake alert nad anicteric op clear rrr no mrg cta b soft nt nd no cce warm dry well perfused demented, ambulating ICD10 Worksheet Patient Problems: Problems Problem Status Onset Pneumonia Acute Sepsis Acute Delirium Acute Dementia Acute
[2016-07-02] MEDS: metFORMIN HCL 500 MG TAB PO SCH (17:15)
[2016-07-02] MEDS: LEVOTHYROXINE 50 MCG TAB PO SCH (19:22)
[2016-07-03 05:15] LABS: % IMMATURE GRANULYOCYTES 1.1 % (0.0-1.1); ABSOLUTE IMMATURE GRANULOCYTES 0.15 10^3/uL (0.00-0.10); ADD DIFF? NO; ADD MORPH? NO; ADD SCAN? NO; ATYPICAL LYMPHOCYTE FLAG 20 (0-99); FRAGMENT RBC FLAG 0 (0-99); HEMATOCRIT 35.1 % (38.0-47.0); HEMOGLOBIN 11.2 g/dL (12.6-16.3); LEFT SHIFT FLG 0 (0-99); LIPEMIA HEMOLYSIS FLAG 80 (0-99); MEAN CELL HEMOGLOBIN 29.1 pg (27.9-34.1); MEAN CELL HEMOGLOBIN CONCENTR. 31.9 g/dL (32.4-36.7); MEAN CELL VOLUME 91.2 fL (81.5-99.8); MEAN PLATELET VOLUME 9.7 fL (8.7-11.7); PLATELET CLUMPS FLAG 0 (0-99); PLATELET COUNT 311 10^3/uL (150-400); RED BLOOD CELL COUNT 3.85 10^6/uL (4.18-5.33); RED CELL DISTRIBUTION WIDTH 14.6 % (11.5-15.2)
[2016-07-03 05:33] LABS: ANION GAP 7 mEq/L (8-16); CALCIUM 9.3 mg/dL (8.5-10.4); CARBON DIOXIDE 26 mEq/l (22-31); CHLORIDE 106 mEq/L (97-110); CREATININE 0.9 mg/dL (0.6-1.0); GLOMERULAR FILTRATION RATE > 60; GLUCOSE 121 mg/dL (70-100); POTASSIUM 4.6 mEq/L (3.5-5.2); SODIUM 139 mEq/L (134-144)
[2016-07-03] MEDS: LORazepam 0.5 MG TAB PO SCH ×4 (06:03→21:28)
[2016-07-03] MEDS: TIOTROPIUM INHALER 18 MCG/DOSE 5 DOSE/MDI IH SCH (09:15)
[2016-07-03] MEDS: INSULIN REGULAR HUMAN 100 UNIT/ML SC SCH ×4 (10:32→21:37)
[2016-07-03] MEDS: QUEtiapine FUMARATE 25 MG TAB PO SCH ×2 (10:57→15:30)
[2016-07-03] MEDS: CITALOPRAM 20 MG TAB PO SCH (10:59)
[2016-07-03] MEDS: ACETAMINOPHEN 500 MG TAB PO SCH ×3 (10:59→21:27)
[2016-07-03] MEDS: MEMANTINE HCL 5 MG TAB PO SCH ×2 (10:59→21:27)
[2016-07-03] MEDS: APIXABAN 5 MG TAB PO SCH ×2 (11:00→21:28)
[2016-07-03] MEDS: LISINOPRIL 10 MG TAB PO SCH (11:17)
[2016-07-03] MEDS: METOPROLOL TARTRATE 25 MG TAB PO SCH (11:17)
[2016-07-03] MEDS: metFORMIN HCL 850 MG TAB PO SCH (11:24)
--- NOTE | 2016-07-03 13:05 | HOSPPROG ---
Hospitalist Progress Note Assessment/Plan: 75-year-old female with a history of dementia and recent hospital admission for sepsis and LL L pneumonia. She was admitted this time from a [facility] due to agitation. Patient is new to me today. -acute encephalopathy. She appears to had an exacerbation of an acute agitated delirium with an underlying chronic dementia. This may have been secondary to changing her facilities. Today she appears to be at her baseline. There is no clear evidence of infection or metabolic derangement. Her white count was slightly elevated though there is no clear signs of any infection. Her chest x- ray does not show pneumonia and her urine did show some leukocyte esterase and a culture is pending although she is afebrile. Today she is uncooperative with blood draws and fingersticks. In addition she has been refused admission to [facility] due to her behavior. -recent aspiration pneumonia. She is currently swallowing without this for occult E and her chest x-ray is negative for an infiltrate. She has completed a full course of antibiotics with the completion of Augmentin on 07/02 -AFib: This is a recent diagnosis and she was started on Eliquis. She is currently rate controlled. -diabetes mellitus: We have continued her outpatient medications including metformin an SSI. Despite this today she has new hyperglycemia and will require additional doses of supplemental insulin. She has been refusing finger check so it has been difficult to cover her under this structure. I plan to assess her total insulin need and see if we can cover with some long acting insulin in addition to SSI coverage. -chronic medical: COPD without evidence of an exacerbation on this admission. She is not hypoxic. -DNR status. Plan: Will plan close coverage and of her glucose and watch her WBC and temperature and follow up on urine cultures. This has been discussed with case management and nursing. 7 Subjective: Interactive and cooperative during my examination but intermittently uncooperative with blood draws and glucose checks. No complaints. Objective: Vital Signs Temp Pulse Resp BP Pulse Ox 36.6 C 98 18 85/66 L 89 L 07/03/16 11:05 07/03/16 11:05 07/03/16 11:05 07/03/16 11:05 07/03/16 11:05 Laboratory Results 07/03/16 05:02 07/03/16 05:02 07/02/16 07/03/16 07/04/16 05:59 05:59 05:59 Intake Total 480 Balance 480 - Physical Exam Constitutional: no apparent distress, chronically ill appearing Eyes: PERRL Ears, Nose, Mouth, Throat: moist mucous membranes, hard of hearing Cardiovascular: systolic murmur, irregularly irregular Respiratory: no respiratory distress, no rales or rhonchi Gastrointestinal: normoactive bowel sounds, soft, non-tender abdomen, no palpable masses Musculoskeletal: generalized weakness Neurologic: other (Cannot assess her orientation as she did not respond to questions. Cranial nerves are intact.) ICD10 Worksheet Patient Problems: Problems Problem Status Onset Pneumonia Acute Sepsis Acute Delirium Acute Dementia Acute
[2016-07-03] MEDS ORDERED: INSULIN REGULAR HUMAN 100 UNIT/ML SC ONE (13:30)
[2016-07-03] MEDS: QUEtiapine FUMARATE 25 MG TAB PO PRN (13:31)
[2016-07-03] MEDS: metFORMIN HCL 500 MG TAB PO SCH (18:26)
[2016-07-03] MEDS: LEVOTHYROXINE 50 MCG TAB PO SCH (21:28)
[2016-07-04 05:08] LABS: ABSOLUTE IMMATURE GRANULOCYTES 0.11 10^3/uL (0.00-0.10); ADD DIFF? NO; ADD MORPH? NO; ADD SCAN? NO; ATYPICAL LYMPHOCYTE FLAG 30 (0-99); FRAGMENT RBC FLAG 0 (0-99); HEMATOCRIT 37.3 % (38.0-47.0); HEMOGLOBIN 11.8 g/dL (12.6-16.3); LEFT SHIFT FLG 0 (0-99); LIPEMIA HEMOLYSIS FLAG 80 (0-99); MEAN CELL HEMOGLOBIN 28.9 pg (27.9-34.1); MEAN CELL HEMOGLOBIN CONCENTR. 31.6 g/dL (32.4-36.7); MEAN CELL VOLUME 91.2 fL (81.5-99.8); MEAN PLATELET VOLUME 9.8 fL (8.7-11.7); PLATELET CLUMPS FLAG 10 (0-99); PLATELET COUNT 320 10^3/uL (150-400); RED BLOOD CELL COUNT 4.09 10^6/uL (4.18-5.33); RED CELL DISTRIBUTION WIDTH 14.6 % (11.5-15.2)
[2016-07-04] MEDS: LORazepam 0.5 MG TAB PO SCH ×4 (05:43→19:52)
[2016-07-04] MEDS: QUEtiapine FUMARATE 25 MG TAB PO SCH ×2 (09:46→16:18)
[2016-07-04] MEDS: ACETAMINOPHEN 500 MG TAB PO SCH ×3 (09:46→23:10)
[2016-07-04] MEDS: LISINOPRIL 10 MG TAB PO SCH (09:47)
[2016-07-04] MEDS: CITALOPRAM 20 MG TAB PO SCH (09:48)
[2016-07-04] MEDS: APIXABAN 5 MG TAB PO SCH ×2 (09:48→19:52)
[2016-07-04] MEDS: INSULIN REGULAR HUMAN 100 UNIT/ML SC SCH ×4 (09:48→19:55)
[2016-07-04] MEDS: MEMANTINE HCL 5 MG TAB PO SCH ×2 (09:50→19:52)
[2016-07-04] MEDS: metFORMIN HCL 850 MG TAB PO SCH (10:30)
[2016-07-04] MEDS: METOPROLOL TARTRATE 25 MG TAB PO SCH (10:31)
[2016-07-04 11:18] LABS: HEMOGLOBIN A1C 7.8 % (4.0-6.0)
[2016-07-04] MEDS: TIOTROPIUM INHALER 18 MCG/DOSE 5 DOSE/MDI IH SCH (11:26)
--- NOTE | 2016-07-04 11:37 | WOCRNPDOC ---
[facility] Advanced Assessment Note - Skin Integrity Problem, Advanced Assess Generalized Buttock Dressing Type: Open to Air Exudate Amount: None Exudate Characteristic(s): None Kristy Wound Tissue: Blanching Skin Integrity Problem Comment: Mild redness noted in gluteal cleft, w/ intact skin noted. There is a small, pinpoint dimple just above the patient's gluteal cleft which appears to be a healing/scarred pilonidal cyst or ingrown hair. Patient picked at the site during assessment, but denied any pain. There is no swelling over the area, and skin is blanching. Nursing to apply Calazime in groin folds and in gluteal cleft/buttocks. Groin Incont Assoc Dermatitis Dressing Type: Open to Air Exudate Amount: None Exudate Characteristic(s): None Kristy Wound Tissue: Denuded Kristy Wound Swelling: Mild Wound Bed Color: Red Site Odor: Slight Site Odor Comment: urine Skin Integrity Problem Comment: Raw, denuded skin noted in groin folds, more pronounced on left side, consistent in appearacne w/ IAD. Patient denies pain to site. Advise application of Calazime skin protectant on both sides of groin to protect skin from moisture/friction.
--- NOTE | 2016-07-04 14:13 | GDS ---
[f rep st] DISCHARGE SUMMARY NEW AND ACUTE DIAGNOSES: 1. Acute metabolic encephalopathy of undetermined etiology. 2. Delirium and agitation, perhaps secondary to recent changes in environment. 3. Dementia. 4. Atrial fibrillation on Eliquis as anticoagulation and stable. 5. Diabetes mellitus. 6. Hypertension. 7. Chronic obstructive pulmonary disease. 8. The patient is do not resuscitate. CONSULTATIONS: None. PROCEDURES: None. HOSPITAL COURSE: This is a 75-year-old female with a known history of dementia and some agitation w ho was admitted because of agitation. She had reasons had recently been admitted to the hospital [facility], and then discharged to [place]. She became agitated and more confused and it w as felt perhaps either of metabolic origin or due to a change of environment. She was admitted, fou nd to have a slightly elevated white count of 14,000 which the day following jennifer to 18,000 and then steadily declined. Her hemoglobin was stable. Chemistry panel showed normal a glucose. Her urine analysis did not reveal signs of infection. Throughout the hospital course, she was afebrile. Her white count steadily declined. Her behavior improved. Her glucose was managed in good control wit h no episodes of hypo or hyperglycemia. Blood pressure was in good control also and her oxygen satu ration was normal on room air at 95-90%. Overall no specific metabolic reason could be found for her acute agitation. It is felt that it pro bably was secondary to a change of environment, although that is unclear. Note that previous to thi s admission she had been treated in-house for an episode of pneumonia and sepsis and perhaps is reso lving that problem as evidenced by an elevated white count. A chest x-ray on this admission did not show infiltrate and her oxygen saturation was good, and she had no signs of respiratory distress. As a result of the fact that we could not find a specific precipitating event, I presume it was seco ndary to resolving pneumonia. No changes were made in her usual medications. She was continued on her Eliquis. In this regard, considering should be given to whether she should continue on anticoag ulation given that she had bruised her forehead and may represent a fall risk. Despite this for the time being, we are going to continue on anticoagulation, but this should be considered in the futur e. DISCHARGE MEDICATIONS: These are the same as her admission medications without changes as follows: Citalopram 20 mg daily, Spiriva inhaler 1 inhalation daily, Seroquel 12.5 mg p.o. daily, Seroquel 2 5 mg daily at 1600 hours, Senokot-S 1 b.i.d. p.r.n., Lopressor 25 mg daily, metformin 500 mg daily, Namenda 10 mg b.i.d., Ativan 0.5 mg q.i.d., lisinopril 10 mg daily, Synthroid 50 mcg daily, metformi n 850 mg at 0800 hours, lorazepam 0.5 mg p.o. daily p.r.n., Tylenol p.r.n., vitamin D3 50,000 internet specialist ational units q.30 days, Tylenol ES p.o. t.i.d. p.r.n., Eliquis 5 mg twice daily. Note that the aristeo locke has completed a course of Augmentin for a presumed aspiration pneumonia on a prior admission. She will be discharged off antibiotics. PLAN: The patient is discharged to [facility] and followup will be through the physician at [facility]. TIME SPENT: This discharge required 50 minutes, greater than 50% to funeral planning counselor and coordinate care. FOLLOW-UP CARE PLAN: Matters to be addressed at the first followup and during her stay at [facility]: The patient may need an adjustment of her Seroquel. She does have intermittent episodes of a gitation, but this does not appear to be on a metabolic basis. Therefore, some adjustment of Seroqu el may be necessary for behavioral modification. /[id number]/MODL
[2016-07-04] MEDS: metFORMIN HCL 500 MG TAB PO SCH (18:49)
[2016-07-04] MEDS: QUEtiapine FUMARATE 25 MG TAB PO PRN (19:53)
[2016-07-04] MEDS: LEVOTHYROXINE 50 MCG TAB PO SCH (19:53)
[2016-07-05] MEDS: LORazepam 0.5 MG TAB PO SCH ×4 (05:34→19:58)
[2016-07-05 05:37] LABS: % IMMATURE GRANULYOCYTES 1.4 % (0.0-1.1); ABSOLUTE IMMATURE GRANULOCYTES 0.14 10^3/uL (0.00-0.10); ADD DIFF? NO; ADD MORPH? NO; ADD SCAN? NO; ATYPICAL LYMPHOCYTE FLAG 30 (0-99); FRAGMENT RBC FLAG 0 (0-99); HEMATOCRIT 34.6 % (38.0-47.0); LEFT SHIFT FLG 10 (0-99); LIPEMIA HEMOLYSIS FLAG 80 (0-99); MEAN CELL HEMOGLOBIN 28.9 pg (27.9-34.1); MEAN CELL HEMOGLOBIN CONCENTR. 31.8 g/dL (32.4-36.7); MEAN CELL VOLUME 91.1 fL (81.5-99.8); MEAN PLATELET VOLUME 10.2 fL (8.7-11.7); PLATELET CLUMPS FLAG 0 (0-99); PLATELET COUNT 315 10^3/uL (150-400); RED CELL DISTRIBUTION WIDTH 14.6 % (11.5-15.2)
[2016-07-05] MEDS: TIOTROPIUM INHALER 18 MCG/DOSE 5 DOSE/MDI IH SCH (08:33)
[2016-07-05] MEDS: METOPROLOL TARTRATE 25 MG TAB PO SCH (09:53)
[2016-07-05] MEDS: LISINOPRIL 10 MG TAB PO SCH (09:54)
[2016-07-05] MEDS: MEMANTINE HCL 5 MG TAB PO SCH ×2 (09:55→20:03)
[2016-07-05] MEDS: ACETAMINOPHEN 500 MG TAB PO SCH ×3 (09:55→20:03)
[2016-07-05] MEDS: APIXABAN 5 MG TAB PO SCH ×2 (09:55→19:58)
[2016-07-05] MEDS: QUEtiapine FUMARATE 25 MG TAB PO SCH ×2 (09:57→16:16)
[2016-07-05] MEDS: metFORMIN HCL 850 MG TAB PO SCH (09:57)
[2016-07-05] MEDS: CITALOPRAM 20 MG TAB PO SCH (09:57)
[2016-07-05] MEDS: INSULIN REGULAR HUMAN 100 UNIT/ML SC SCH ×4 (10:01→23:11)
[2016-07-05] MEDS: LORazepam 0.5 MG TAB PO PRN ×2 (10:06→14:11)
--- NOTE | 2016-07-05 13:09 | HOSPPROG ---
Hospitalist Progress Note Assessment/Plan: 75-year-old female with a history of dementia and recent hospital admission for sepsis and LL L pneumonia. She was admitted this time from a residential due to agitation. Patient is new to me today. -acute encephalopathy. She appears to had an exacerbation of an acute agitated delirium with an underlying chronic dementia. This may have been secondary to changing her facilities. Today she appears to be at her baseline. There is no clear evidence of infection or metabolic derangement. Her white count was slightly elevated though there is no clear signs of any infection. Her chest x- ray does not show pneumonia and her urine did show some leukocyte esterase and a culture is pending although she is afebrile. Today she is uncooperative with blood draws and fingersticks. In addition she has been refused admission to [place] due to her behavior. Patient has fallen as outpatient and hit head. there could be a component of resolving a concussion also, Post concussive syndrome. -recent aspiration pneumonia. She is currently swallowing without this for occult E and her chest x-ray is negative for an infiltrate. She has completed a full course of antibiotics with the completion of Augmentin on 07/02 -AFib: This is a recent diagnosis and she was started on Eliquis. She is currently rate controlled. -diabetes mellitus: We have continued her outpatient medications including metformin an SSI. Despite this today she has new hyperglycemia and will require additional doses of supplemental insulin. She has been refusing finger check so it has been difficult to cover her under this structure. I plan to assess her total insulin need and see if we can cover with some long acting insulin in addition to SSI coverage. -chronic medical: COPD without evidence of an exacerbation on this admission. She is not hypoxic. -DNR status. Plan: Will plan close coverage and of her glucose and watch her WBC and temperature and follow up on urine cultures. This has been discussed with case management and nursing. today patient is improving; is more active and more interactive. She can be disruptive at times and thus needs close attention. discussed with executive services administrator who feel she needs close attention to manage, that Kwasi Browning would likely not be able to do this over the holiday weekend. I am also adjusting medications to promote night time sleeping. thus will plan discharge for 07/07 to [facility] 7 Subjective: alert and interactive; oriented x 0. no complaints. Objective: Vital Signs Temp Pulse Resp BP Pulse Ox 36.9 C 62 18 117/64 96 07/05/16 08:39 07/05/16 09:53 07/05/16 08:39 07/05/16 09:54 07/05/16 08:39 Laboratory Results 07/05/16 04:51 07/03/16 05:02 07/04/16 07/05/16 07/06/16 05:59 05:59 05:59 Intake Total 970 200 Balance 970 200 - Time Spent With Patient Time Spent with Patient: greater than 35 minutes Time Spent with Patient: Greater than 35 minutes spent on this patients care, greater than 50% of time spent counseling, educating, and coordinating care regarding the above mentioned plan. - Pending Discharge Pending Discharge Within 24 Hours: No Pending Discharge Within 48 Hours: Yes Pending Discharge Date: 07/07/16 Pending Discharge Time: 11:00 - Physical Exam Constitutional: no apparent distress, chronically ill appearing Eyes: PERRL Ears, Nose, Mouth, Throat: moist mucous membranes, hearing normal Cardiovascular: regular rate and rhythym, no murmur, rub, or gallop Respiratory: no respiratory distress, no rales or rhonchi, clear to auscultation Gastrointestinal: normoactive bowel sounds, soft, non-tender abdomen Genitourinary: no bladder fullness Skin: warm Psychiatric: other (demented) ICD10 Worksheet Patient Problems: Problems Problem Status Onset Pneumonia Acute Sepsis Acute Delirium Acute Dementia Acute
[2016-07-05] MEDS: QUEtiapine FUMARATE 25 MG TAB PO PRN ×2 (14:11→19:57)
[2016-07-05] MEDS: metFORMIN HCL 500 MG TAB PO SCH (17:16)
[2016-07-05] MEDS: LEVOTHYROXINE 50 MCG TAB PO SCH (19:57)
[2016-07-06 05:14] LABS: % IMMATURE GRANULYOCYTES 1.6 % (0.0-1.1); ABSOLUTE IMMATURE GRANULOCYTES 0.14 10^3/uL (0.00-0.10); ADD DIFF? NO; ADD MORPH? NO; ADD SCAN? NO; ATYPICAL LYMPHOCYTE FLAG 10 (0-99); FRAGMENT RBC FLAG 0 (0-99); HEMATOCRIT 35.8 % (38.0-47.0); HEMOGLOBIN 11.2 g/dL (12.6-16.3); LEFT SHIFT FLG 10 (0-99); LIPEMIA HEMOLYSIS FLAG 80 (0-99); MEAN CELL HEMOGLOBIN 28.9 pg (27.9-34.1); MEAN CELL HEMOGLOBIN CONCENTR. 31.3 g/dL (32.4-36.7); MEAN CELL VOLUME 92.5 fL (81.5-99.8); MEAN PLATELET VOLUME 10.1 fL (8.7-11.7); PLATELET CLUMPS FLAG 10 (0-99); PLATELET COUNT 338 10^3/uL (150-400); RED BLOOD CELL COUNT 3.87 10^6/uL (4.18-5.33); RED CELL DISTRIBUTION WIDTH 14.6 % (11.5-15.2)
[2016-07-06] MEDS: LORazepam 0.5 MG TAB PO SCH ×4 (06:11→20:25)
--- NOTE | 2016-07-06 08:01 | HOSPPROG ---
Hospitalist Progress Note Assessment/Plan: 75-year-old female with a history of dementia and recent hospital admission for sepsis and LL L pneumonia. She was admitted this time from a [facility] due to agitation. -acute encephalopathy. She appears to had an exacerbation of an acute agitated delirium with an underlying chronic dementia. This may have been secondary to changing her facilities. Today she appears to be at her baseline. There is no clear evidence of infection or metabolic derangement. Her white count was slightly elevated though there is no clear signs of any infection. Her chest x- ray does not show pneumonia and her urine did show some leukocyte esterase and a culture is pending although she is afebrile. Today she is uncooperative with blood draws and fingersticks. In addition she has been refused admission to [place] due to her behavior. Patient has fallen as outpatient and hit head. there could be a component of resolving a concussion also, Post concussive syndrome. Today 07/06 the patient is much improved she slept through the night and is now alert and active during the day. I have spoken today in person with her daughter Deniz who reports that she is getting closer to her baseline. At this point her behaviors well enough controlled for transfer tomorrow to [facility]. -recent aspiration pneumonia. She is currently swallowing without this for occult E and her chest x-ray is negative for an infiltrate. She has completed a full course of antibiotics with the completion of Augmentin on 07/02. Patient has been afebrile since that time. -AFib: This is a recent diagnosis and she was started on Eliquis. She is currently rate controlled. She continues to be well controlled and rate. -diabetes mellitus: We have continued her outpatient medications including metformin an SSI. Despite this today she has new hyperglycemia and will require additional doses of supplemental insulin. She has been refusing finger check so it has been difficult to cover her under this structure. I plan to assess her total insulin need and see if we can cover with some long acting insulin in addition to SSI coverage. We have been successful and covering with SSI. -chronic medical: COPD without evidence of an exacerbation on this admission. She is not hypoxic. -DNR status. Plan: Will plan close coverage and of her glucose and watch her WBC and temperature and follow up on urine cultures. This has been discussed with case management and nursing. today patient is improving; is more active and more interactive. She can be disruptive at times and thus needs close attention. discussed with rehabilitation services director who feel she needs close attention to manage, that Kwasi Browning would likely not be able to do this over the holiday weekend. I am also adjusting medications to promote night time sleeping. thus will plan discharge for 07/07 to [facility] 7 Subjective: Alert oriented times 0 but cooperative and not combative. She is walking in the samuels and talkative. Yennifer her daughter says that she is very near her baseline. Objective: Vital Signs Temp Pulse Resp BP Pulse Ox 36.3 C 51 L 13 117/64 94 07/06/16 04:00 07/06/16 04:00 07/06/16 04:00 07/06/16 04:00 07/06/16 04:00 Laboratory Results 07/06/16 04:30 07/03/16 05:02 07/05/16 07/06/16 07/07/16 05:59 05:59 05:59 Intake Total 200 900 Balance 200 900 - Time Spent With Patient Time Spent with Patient: greater than 35 minutes Time Spent with Patient: Greater than 35 minutes spent on this patients care, greater than 50% of time spent counseling, educating, and coordinating care regarding the above mentioned plan. - Pending Discharge Pending Discharge Within 24 Hours: Yes Pending Discharge Date: 07/07/16 Pending Discharge Time: 11:00 - Physical Exam Constitutional: no apparent distress Eyes: PERRL Ears, Nose, Mouth, Throat: moist mucous membranes Cardiovascular: regular rate and rhythym Respiratory: no respiratory distress, no rales or rhonchi, clear to auscultation Gastrointestinal: normoactive bowel sounds, soft, non-tender abdomen, no palpable masses Neurologic: other (Oriented times 0 and very poor memory. Interactive but can not remember my name.) ICD10 Worksheet Patient Problems: Problems Problem Status Onset Pneumonia Acute Sepsis Acute Delirium Acute Dementia Acute
[2016-07-06] MEDS: QUEtiapine FUMARATE 25 MG TAB PO SCH ×2 (10:43→17:24)
[2016-07-06] MEDS: metFORMIN HCL 850 MG TAB PO SCH (10:45)
[2016-07-06] MEDS: APIXABAN 5 MG TAB PO SCH ×2 (10:46→20:25)
[2016-07-06] MEDS: ACETAMINOPHEN 500 MG TAB PO SCH ×3 (10:47→20:25)
[2016-07-06] MEDS: MEMANTINE HCL 5 MG TAB PO SCH ×2 (10:51→20:25)
[2016-07-06] MEDS: LISINOPRIL 10 MG TAB PO SCH (10:52)
[2016-07-06] MEDS: CITALOPRAM 20 MG TAB PO SCH (10:52)
[2016-07-06] MEDS: INSULIN REGULAR HUMAN 100 UNIT/ML SC SCH ×4 (11:03→22:07)
[2016-07-06] MEDS: METOPROLOL TARTRATE 25 MG TAB PO SCH (11:07)
[2016-07-06] MEDS: TIOTROPIUM INHALER 18 MCG/DOSE 5 DOSE/MDI IH SCH (12:01)
[2016-07-06] MEDS: QUEtiapine FUMARATE 25 MG TAB PO PRN (13:11)
[2016-07-06] MEDS: metFORMIN HCL 500 MG TAB PO SCH (17:24)
[2016-07-06] MEDS: LEVOTHYROXINE 50 MCG TAB PO SCH (20:25)
[2016-07-07 04:18] VITALS: RESP 16; TEMP 96.3; O2SAT 93
[2016-07-07] MEDS: LORazepam 0.5 MG TAB PO SCH ×3 (06:15→16:21)
[2016-07-07] MEDS: TIOTROPIUM INHALER 18 MCG/DOSE 5 DOSE/MDI IH SCH (09:07)
[2016-07-07] MEDS: MEMANTINE HCL 5 MG TAB PO SCH (09:50)
[2016-07-07] MEDS: QUEtiapine FUMARATE 25 MG TAB PO SCH ×2 (09:53→16:17)
[2016-07-07] MEDS: APIXABAN 5 MG TAB PO SCH (09:56)
[2016-07-07] MEDS: metFORMIN HCL 850 MG TAB PO SCH (09:57)
[2016-07-07] MEDS: CITALOPRAM 20 MG TAB PO SCH (09:59)
[2016-07-07] MEDS: INSULIN REGULAR HUMAN 100 UNIT/ML SC SCH ×2 (10:04→13:40)
[2016-07-07] MEDS ORDERED: risperiDONE 0.5 MG TAB PO ONE (12:09)
[2016-07-07] MEDS: ACETAMINOPHEN 500 MG TAB PO SCH ×2 (13:39→16:18)
[2016-07-07] MEDS: LISINOPRIL 10 MG TAB PO SCH (13:40)
[2016-07-07 13:41] VITALS: BP 87/67
[2016-07-07] MEDS: METOPROLOL TARTRATE 25 MG TAB PO SCH (13:42)
[2016-07-07 13:43] VITALS: PULSE 78
--- NOTE | 2016-07-07 13:47 | HOSPPROG ---
Hospitalist Progress Note Assessment/Plan: 75-year-old female with a history of dementia and recent hospital admission for sepsis and LL L pneumonia. [facility]. -acute encephalopathy. She appears to had an exacerbation of an acute agitated delirium with an underlying chronic dementia. This may have been secondary to changing her facilities. There is no clear evidence of infection or metabolic derangement. Her white count was slightly elevated though there is no clear signs of any infection. Her chest x-ray does not show pneumonia and her urine did show some leukocyte esterase and a culture is pending although she is afebrile. Patient has fallen as outpatient and hit head. there could be a component of resolving a concussion also, Post concussive syndrome. On 07/06, 07/05, and 07/07 the patient slept through the night. She was active during the day and her behavior was manageable yet she is very active and has required a sitter. It is unclear Kwasi Browning can manage her with this active. Today with this persistent hyperactivity, on 07/07 IV given Risperdal 0.5 mg in the afternoon to see if I can calmer slightly. If this is effective [facility] . -recent aspiration pneumonia. She is currently swallowing without signs of aspiration and her chest x-ray is negative for an infiltrate. She has completed a full course of antibiotics with the completion of Augmentin on . Patient has been afebrile since that time. -AFib: This is a recent diagnosis and she was started on Eliquis. She is currently rate controlled. She continues to be well controlled and rate. -diabetes mellitus: We have continued her outpatient medications including metformin an SSI. Glucose is now well controlled on metformin. This is probably her baseline function. -chronic medical: COPD without evidence of an exacerbation on this admission. She is not hypoxic. -DNR status. Plan: Will plan close coverage and of her glucose and watch her WBC and temperature and follow up on urine cultures. This has been discussed with case management and nursing. Overall the patient's exacerbation of delirium that resulted into this admission may be secondary to a combination of a post concussive syndrome, and resolving acute pneumonia. Her recovery may simply have taken longer in a lady with an underlying dementia. Aside from her access activity at this time she is at her baseline. 7 Subjective: Alert and very active and demanding but not excessively diff disruptive. Despite this here on a medical unit she does require a sitter to manage her behavior. No fever cough or shortness of breath or chest pain Objective: Vital Signs Temp Pulse Resp BP Pulse Ox 35.7 C L 54 L 16 107/67 93 07/07/16 04:00 07/07/16 04:00 07/07/16 04:00 07/07/16 04:00 07/07/16 04:00 Laboratory Results 07/06/16 04:30 07/03/16 05:02 07/06/16 07/07/16 07/08/16 05:59 05:59 05:59 Intake Total 900 Balance 900 - Time Spent With Patient Time Spent with Patient: greater than 35 minutes Time Spent with Patient: Greater than 35 minutes spent on this patients care, greater than 50% of time spent counseling, educating, and coordinating care regarding the above mentioned plan. - Pending Discharge Pending Discharge Within 24 Hours: No Pending Discharge Within 48 Hours: Yes Pending Discharge Date: 07/09/16 Pending Discharge Time: 11:00 - Physical Exam Constitutional: no apparent distress, chronically ill appearing Eyes: PERRL, other (Contusion on the left side of the scalp in the left occipital region. The area is now ecchymotic and resolving) Ears, Nose, Mouth, Throat: moist mucous membranes, hearing normal Cardiovascular: regular rate and rhythym, no murmur, rub, or gallop Respiratory: no respiratory distress, no rales or rhonchi Gastrointestinal: normoactive bowel sounds, soft, non-tender abdomen Genitourinary: no bladder fullness Skin: warm Neurologic: CN II-XII Intact, other (Agitated, confused, and demented. She is very active but that can be resumed with.) Psychiatric: other (Agitated and very active) ICD10 Worksheet Patient Problems: Problems Problem Status Onset Pneumonia Acute Sepsis Acute Delirium Acute Dementia Acute
[2016-07-07] MEDS: LORazepam 0.5 MG TAB PO PRN (15:05)
--- NOTE | 2016-07-07 15:06 | PDIAF ---
- Diagnosis Diagnosis: Dementia; atrial fibrillation, diabetes mellitus controlled Code Status: Do Not Resuscitate - Medication Management Discharge Medications: Medications to Continue on Transfer Acetaminophen [Tylenol ES 500 mg (*)] 500 mg PO Q6 PRN 06/21/16 [Last Taken Unknown] Acetaminophen [Tylenol ES 500 mg (*)] 500 mg PO TID 06/21/16 [Last Taken 08:00] Cholecalciferol Vit D3 [Vitamin D3 (*)] 50,000 unit PO Q30D 06/21/16 [Last Taken 05/24/16] Citalopram Hydrobromide [Citalopram HBr] 20 mg PO DAILY 06/21/16 [Last Taken 04/08] LORazepam [Ativan (*)] 0.5 mg PO DAILY PRN 06/21/16 [Last Taken Unknown] LORazepam [Ativan (*)] 0.5 mg PO QID 06/21/16 [Last Taken 06/21/16 12:00] Levothyroxine [Synthroid 50 mcg (*)] 50 mcg PO DAILY@20 06/21/16 [Last Taken Unknown] Lisinopril [Zestril 10 mg (*)] 10 mg PO DAILY 06/21/16 [Last Taken 06/21/16] Memantine HCl [Namenda 10 mg] 10 mg PO BID 06/21/16 [Last Taken 06/21/16 08:00] Metoprolol Tartrate [Lopressor 25 mg (*)] 25 mg PO DAILY 06/21/16 [Last Taken ] QUEtiapine FUMARATE [Seroquel 25 mg (*)] 12.5 mg PO DAILY 06/21/16 [Last Taken 06/21/16] QUEtiapine FUMARATE [Seroquel 25 mg (*)] 25 mg PO DAILY16 06/21/16 [Last Taken Unknown] Sennosides/Docusate Sodium [Senokot-S] 1 each PO BID@ PRN 06/21/16 [Last Taken 06/21/16 08:00] Tiotropium Inhaler [Spiriva Inhaler (RX)] 1 inh IH DAILY 06/21/16 [Last Taken ] metFORMIN HCL [Glucophage 500 mg (*)] 500 mg PO DAILY18 06/21/16 [Last Taken Unknown] metFORMIN HCL [Glucophage 850 mg (*)] 850 mg PO DAILY@08 06/21/16 [Last Taken ] Apixaban [Eliquis] 5 mg PO BID #0 tab 06/25/16 [Last Taken Unknown] Discharge Medications: Refer to the Discharge Home Medication list for PRN reason. - Orders Services needed: Registered Nurse, Certified Classroom Teacher, Physical Therapy, Occupational Therapy Diet Recommendation: no restrictions on diet Diet Texture: Regular Texture Diet - Follow Up Care Current Providers and Referrals: Patient,NotPresent [Unknown] - As per Instructions
[2016-07-07] MEDS ORDERED: HALOPERIDOL 5 MG TAB PO ONE (15:37)
[2016-07-07] MEDS: metFORMIN HCL 500 MG TAB PO SCH (17:13)
== END 2016-07-07 17:43 | DRG 72 ==
LOC: EDUNIT# → F3E 21:40 → OBSVTOIN 22:51 → F3E 07-01 14:55
PROVIDERS: ADMIT Internal Medicine; ATTEND Internal Medicine
DX: G93.41 Metabolic encephalopathy (principal); F03.90 Unspecified dementia, unspecified severity, without behavioral disturbance, psychotic disturbance, mood disturbance, and anxiety; I48.91 Unspecified atrial fibrillation; Z79.01 Long term (current) use of anticoagulants; E11.9 Type 2 diabetes mellitus without complications; I10 Essential (primary) hypertension; J44.9 Chronic obstructive pulmonary disease, unspecified; Z66 Do not resuscitate; Z23 Encounter for immunization; Z87.01 Personal history of pneumonia (recurrent)
CPT/HCPCS: 97116-GP; 97162-GP; 97167-GO; 97530-GO; 97535-GO; G0009; G8978-GP-CJ; G8979-GP-CI; G8987-GO-CM; G8988-GO-CJ; J1815; J2405

== ENCOUNTER 2017-02-15 16:12 | Inpatient (IN) | payer OTHER, MEDICAID ==
--- NOTE | 2017-02-15 16:09 | EDPHY ---
HPI/HX/ROS/PE/MDM Narrative: CHIEF COMPLAINT: Altered mental status HPI: The patient is an anticoagulated 76 y/o female with a history of dementia, arriving via EMS after her daughter found her acutely altered at [facility]. On Thursday, 2 days ago, she fell out of her rocking chair and landed on something soft. The fall was not reported and she did not receive any medical care. She has not been eating or drinking as much as normal. Her daughter reports that today she is more confused than normal. She is not currently in any pain. Denies recent cold or illness. The patient is a poor historian. REVIEW OF SYSTEMS: Aside from elements discussed in the HPI, a comprehensive 10-point review of systems was reviewed and is negative. PMH: Dementia, type 2 diabetes, COPD, atrial fibrillation SOCIAL HISTORY: Daughter at bedside, lives at [facility], retired PHYSICAL EXAM: General: Patient is agitated, alert, in no acute distress. ENT:Eyes are normal to inspection. Dry mucus membranes. Neck: Normal inspection. Full range of motion. Respiratory:No respiratory distress. Breath sounds normal bilaterally. Cardiovascular: Regular rate and rhythm. Strong peripheral pulses. Normal cap refill. Abdomen:The abdomen is nontender to palpation. There are no peritoneal signs. There are normal bowel sounds. Back: Normal to inspection. No tenderness to palpation. Skin: Normal color. No rash. Warm and dry. Extremities: Normal appearance. Full range of motion. Neuro: Oriented x 0. Preforming repetitive movements. Normal motor function. Normal sensory function. ED Course: 1642: Spoke with Dr. Jalloh, radiologist, he reports the head CT is negative. 1643: Reassessed patient and discussed imaging findings. 1828: Patient has been catheterized for a urinalysis. 2029: Patient's urinalysis reveals she has a UTI. 2031: Reassessed patient and discussed laboratory results. She is still very confused and refuses to eat or drink. She will need to be admitted. 2052: Consulted with Dr. Whalen, hospitalist, he agrees to admit this patient. MDM: This patient presents with acute mental status change likely secondary to UTI. She is unable to tolerate anything by mouth currently and so would benefit from admission for rehydration and further work and IV antibiotics. - Data Points Imaging Results: Imaging Impressions Chest X-Ray 02/15/17 16:17 Impression: Clear lungs. No acute process. Head CT 02/15/17 16:18 Impression: 1. No acute intracranial hemorrhage or fracture. 2. Atrophy and white matter disease similar to June 2016. Findings discussed with Emergency Department physician, Dewayne Jackson M.D. , on February 15, 2017 at 1645. Imaging: Discussed imaging studies w/ call center specialist Radiologist, I viewed and interpreted images myself Laboratory Results: Laboratory Results 02/15/17 16:20 02/15/17 16:20 02/15/17 02/15/17 02/15/17 19:57 18:20 16:20 WBC RBC Hgb Hct MCV MCH MCHC RDW Plt Count MPV Neut % (Auto) Lymph % (Auto) [place] % (Auto) Eos % (Auto) Baso % (Auto) Nucleat RBC Rel Count Absolute Neuts (auto) Absolute Lymphs (auto) Absolute Monos (auto) Absolute Eos (auto) Absolute Basos (auto) Absolute Nucleated RBC Immature Gran % Immature Gran # Sodium 136 mEq/L mEq/L (134-144) Potassium 4.4 mEq/L mEq/L (3.5-5.2) Chloride 106 mEq/L mEq/L (97-110) Carbon Dioxide 17 mEq/l L mEq/l (22-31) Anion Gap 13 mEq/L mEq/L (8-16) BUN 39 mg/dL H mg/dL (7-23) Creatinine 1.3 mg/dL H mg/dL (0.6-1.0) Estimated GFR 40 Glucose 176 mg/dL H mg/dL (70-100) Calcium 10.0 mg/dL mg/dL (8.5-10.4) Total Bilirubin 0.9 mg/dL mg/dL (0.1-1.4) Conjugated Bilirubin 0.3 mg/dL mg/dL (0.0-0.5) Unconjugated Bilirubin 0.6 mg/dL mg/dL (0.0-1.1) AST 21 IU/L IU/L (14-46) ALT 27 IU/L IU/L (9-52) Alkaline Phosphatase 78 IU/L IU/L (38-126) Troponin I 0.027 ng/mL ng/mL (0.000-0.034) Total Protein 6.3 g/dL g/dL (6.3-8.2) Albumin 3.7 g/dL g/dL (3.5-5.0) Urine Color YELLOW REJ Urine Appearance HAZY Not Reported Urine pH 5.0 Not Reported (5.0-7.5) Ur Specific [place] 1.020 Not Reported (1.002-1.030) Urine Protein NEGATIVE Not Reported (NEGATIVE) Urine Ketones TRACE H Not Reported (NEGATIVE) Urine Blood 1+ H Not Reported (NEGATIVE) Urine Nitrate NEGATIVE Not Reported (NEGATIVE) Urine Bilirubin NEGATIVE Not Reported (NEGATIVE) Urine Urobilinogen NEGATIVE EU EU Not Reported (0.2-1.0) Ur Leukocyte Esterase 1+ H Not Reported (NEGATIVE) Urine RBC 25-50 /hpf H /hpf (0-3) Urine WBC 15-25 /hpf H /hpf (0-3) Ur Epithelial Cells TRACE /lpf /lpf (NONE-1+) Urine Mucus TRACE /lpf /lpf (NONE-1+) Urine Glucose NEGATIVE Not Reported (NEGATIVE) 02/15/17 16:20 WBC 15.37 10^3/uL H 10^3/uL (3.80-9.50) RBC 4.21 10^6/uL 10^6/uL (4.18-5.33) Hgb 12.5 g/dL L g/dL (12.6-16.3) Hct 36.1 % L % (38.0-47.0) MCV 85.7 fL fL (81.5-99.8) MCH 29.7 pg pg (27.9-34.1) MCHC 34.6 g/dL g/dL (32.4-36.7) RDW 15.3 % H % (11.5-15.2) Plt Count 247 10^3/uL 10^3/uL (150-400) MPV 11.1 fL fL (8.7-11.7) Neut % (Auto) 86.9 % H % (39.3-74.2) Lymph % (Auto) 6.2 % L % (15.0-45.0) [place] % (Auto) 5.7 % % (4.5-13.0) Eos % (Auto) 0.1 % L % (0.6-7.6) Baso % (Auto) 0.3 % % (0.3-1.7) Nucleat RBC Rel Count 0.0 % % (0.0-0.2) Absolute Neuts (auto) 13.37 10^3/uL H 10^3/uL (1.70-6.50) Absolute Lymphs (auto) 0.96 10^3/uL L 10^3/uL (1.00-3.00) Absolute Monos (auto) 0.87 10^3/uL H 10^3/uL (0.30-0.80) Absolute Eos (auto) 0.01 10^3/uL L 10^3/uL (0.03-0.40) Absolute Basos (auto) 0.04 10^3/uL 10^3/uL (0.02-0.10) Absolute Nucleated RBC 0.00 10^3/uL 10^3/uL (0-0.01) Immature Gran % 0.8 % % (0.0-1.1) Immature Gran # 0.12 10^3/uL H 10^3/uL (0.00-0.10) Sodium Potassium Chloride Carbon Dioxide Anion Gap BUN Creatinine Estimated GFR Glucose Calcium Total Bilirubin Conjugated Bilirubin Unconjugated Bilirubin AST ALT Alkaline Phosphatase Troponin I Total Protein Albumin Urine Color Urine Appearance Urine pH Ur Specific [place] Urine Protein Urine Ketones Urine Blood Urine Nitrate Urine Bilirubin Urine Urobilinogen Ur Leukocyte Esterase Urine RBC Urine WBC Ur Epithelial Cells Urine Mucus Urine Glucose Medications Given: Ceftriaxone Sodium/Dextrose (Rocephin 1 Gm (Premix)) 50 mls @ 100 mls/hr IV EDNOW ONE PRN Reason: Protocol Stop: 02/15/17 21:02 Last Admin: 02/15/17 20:38 Dose: 50 mls Discontinued Medications Sodium Chloride (Ns) 1,000 mls @ 0 mls/hr IV EDNOW ONE; Wide Open PRN Reason: Protocol Stop: 02/15/17 16:18 Last Admin: 02/15/17 16:37 Dose: 1,000 mls Sodium Chloride (Ns) 1,000 mls @ 3,000 mls/hr IV ONCE ONE Stop: 02/15/17 19:34 Last Admin: 02/15/17 19:16 Dose: 1,000 mls General Initial Vital Signs: Initial Vital Signs Temperature (C) 36.7 C 02/15/17 16:21 Heart Rate 93 02/15/17 16:21 Respiratory Rate 18 02/15/17 16:21 Blood Pressure 105/65 02/15/17 16:21 O2 Sat (%) 93 02/15/17 16:21 O2 Delivery Mode Room Air O2 (L/minute) 2 Allergies/Adverse Reactions: propoxyphene Allergy (Verified 06/30/16 15:07) quetiapine [From Seroquel] Allergy (Verified 02/15/17 16:27) Home Medications: Medication Instructions Recorded Acetaminophen [Tylenol ES 500 mg 500 mg PO Q6 PRN 06/21/16 (*)] Acetaminophen [Tylenol ES 500 mg 500 mg PO TID 06/21/16 (*)] Cholecalciferol Vit D3 [Vitamin D3 50,000 unit PO Q30D 06/21/16 (*)] Citalopram Hydrobromide 20 mg PO DAILY 06/21/16 [Citalopram HBr] Levothyroxine [Synthroid 50 mcg 50 mcg PO DAILY@08 06/21/16 (*)] Lisinopril [Zestril 10 mg (*)] 10 mg PO DAILY 06/21/16 Memantine HCl [Namenda 10 mg] 10 mg PO BID 06/21/16 Metoprolol Tartrate [Lopressor 25 12.5 mg PO DAILY 06/21/16 mg (*)] Sennosides/Docusate Sodium 1 each PO BID 06/21/16 [Senokot-S] Tiotropium Inhaler [Spiriva 1 inh IH DAILY 06/21/16 Inhaler (RX)] metFORMIN HCL [Glucophage 500 mg 1,000 mg PO BID@,06/21/16 (*)] Apixaban [Eliquis] 5 mg PO BID #0 tab 06/25/16 Ascorbic Acid [Vitamin C 500 mg 500 mg PO BID 02/15/17 (*)] Dextromethorphan HBr/Quinidine 1 each PO BID@,02/15/17 [Nuedexta 20-10 mg Capsule] Herbals/Supplements -Info Only 1 ea PO DAILY 02/15/17 Linagliptin [Tradjenta] 5 mg PO DAILY 02/15/17 Methenamine Divya [Hiprex 1 gm (*)] 1 gm PO BID 11/26/17 Nitrofurantoin Monohyd/M-Cryst 100 mg PO HS 02/15/17 [Macrobid 100 mg Capsule] OLANZapine [Zyprexa] 10 mg PO DAILY 02/15/17 Polyethylene Glycol 3350 [Miralax 17 gm PO HS 02/15/17 17 gm (*)] Departure - Departure Disposition: [facility] Inpatient Acute Clinical Impression: Dehydration UTI (urinary tract infection) Qualifiers: Urinary tract infection type: site unspecified Hematuria presence: with hematuria Qualified Code(s): N39.0 - Urinary tract infection, site not specified Altered mental status Qualifiers: Altered mental status type: disorientation Qualified Code(s): R41.0 - Disorientation, unspecified Failure to thrive Qualifiers: Failure to thrive age range: in adult Qualified Code(s): R62.7 - Adult failure to thrive Condition: Fair Report Scribed for: Dewayne Jackson Report Scribed by: Carmen Méndez Date of Report: 02/15/17 Time of Report: 16:09 Physician Review and Approval Statement: Portions of this note were transcribed by an ED scribe. I personally performed the history, physical exam, and medical decision making; and confirm the accuracy of the information in the transcribed note.
[2017-02-15] MEDS ORDERED: NS 1,000 ML IV ONE ×2 (16:17→19:15)
[2017-02-15 16:25] LABS: % IMMATURE GRANULYOCYTES 0.8 % (0.0-1.1); ABSOLUTE IMMATURE GRANULOCYTES 0.12 10^3/uL (0.00-0.10); ADD DIFF? NO; ADD MORPH? NO; ADD SCAN? NO; ATYPICAL LYMPHOCYTE FLAG 0 (0-99); FRAGMENT RBC FLAG 0 (0-99); HEMATOCRIT 36.1 % (38.0-47.0); HEMOGLOBIN 12.5 g/dL (12.6-16.3); LEFT SHIFT FLG 0 (0-99); LIPEMIA HEMOLYSIS FLAG 90 (0-99); MEAN CELL HEMOGLOBIN 29.7 pg (27.9-34.1); MEAN CELL HEMOGLOBIN CONCENTR. 34.6 g/dL (32.4-36.7); MEAN CELL VOLUME 85.7 fL (81.5-99.8); MEAN PLATELET VOLUME 11.1 fL (8.7-11.7); PLATELET CLUMPS FLAG 10 (0-99); PLATELET COUNT 247 10^3/uL (150-400); RED BLOOD CELL COUNT 4.21 10^6/uL (4.18-5.33); RED CELL DISTRIBUTION WIDTH 15.3 % (11.5-15.2)
[2017-02-15 16:38] LABS: ALANINE AMINOTRANSFERASE 27 IU/L (9-52); ALBUMIN 3.7 g/dL (3.5-5.0); ALKALINE PHOSPHATASE 78 IU/L (38-126); ANION GAP 13 mEq/L (8-16); ASPARTATE AMINOTRANSFERASE 21 IU/L (14-46); BILIRUBIN,TOTAL 0.9 mg/dL (0.1-1.4); BILIRUBIN-CONJUGATED 0.3 mg/dL (0.0-0.5); BILIRUBIN-UNCONJUGATED 0.6 mg/dL (0.0-1.1); CARBON DIOXIDE 17 mEq/l (22-31); CHLORIDE 106 mEq/L (97-110); CREATININE 1.3 mg/dL (0.6-1.0); GLOMERULAR FILTRATION RATE 40; GLUCOSE 176 mg/dL (70-100); POTASSIUM 4.4 mEq/L (3.5-5.2); SODIUM 136 mEq/L (134-144); TOTAL PROTEIN 6.3 g/dL (6.3-8.2)
[2017-02-15 16:49] LABS: TROPONIN I 0.027 ng/mL (0.000-0.034)
[2017-02-15 20:02] LABS: COLOR YELLOW; LEUKOCYTE ESTERASE,URINE 1+ (NEGATIVE); NITRITE,URINE NEGATIVE (NEGATIVE)
[2017-02-15 20:10] LABS: MUCUS TRACE /lpf (NONE-1+); RBC,URINE 25-50 /hpf (0-3); WBC,URINE 15-25 /hpf (0-3)
[2017-02-15] MEDS ORDERED: ONDANSETRON 4 MG/2 ML VIAL IVP PRN (21:03)
[2017-02-15] MEDS ORDERED: ACETAMINOPHEN 325 MG TAB PO PRN (21:03)
[2017-02-15] MEDS ORDERED: ONDANSETRON DISINTEGRATING 4 MG TAB PO PRN (21:03)
[2017-02-15] MEDS ORDERED: HEPARIN 5,000 UNIT/0.5 ML SYR SC SCH (22:00)
--- NOTE | 2017-02-15 22:30 | PDGENHP ---
History and Physical - Chief Complaint Acute encephalopathy - History of Present Illness Primary care provider: Covering physician at [facility] Primary urologist: Dr. Erick Saini HPI: 76-year-old female presenting with acute encephalopathy characterized as mental status changes such as poor level of participation, inability to sit upright, inability to recognize her daughter, disinterest in food an oral intake , associated with a nontraumatic mechanical fall occurring 2 days prior. The patient's daughter provides the entirety of the history, as the patient has baseline dementia. The daughter reports that the patient is normally able to recognize her, normally able to eat, normally able to sit upright in a chair, and the patient was able to do none of these things on the day of presentation when the daughter went to visit her at [facility]. The daughter was informed by staff that the patient did not participate much with her meal on the day prior to this presentation, and that she did sustain a fall 2 days ago, without sustaining any reported injury. The patient is unable to corroborate any of this history, but she continues to rock her bilateral lower extremities as if she is in a rocking chair. The daughter also has noted lip smacking which is constant in duration, onset of symptoms couple weeks ago. History Information - Allergies/Home Medication List Allergies/Adverse Reactions: propoxyphene Allergy (Verified 06/30/16 15:07) quetiapine [From Seroquel] Allergy (Verified 02/15/17 16:27) Home Medications: Acetaminophen [Tylenol ES 500 mg (*)] 500 mg PO Q6 PRN 06/21/16 [Last Taken 00:21] Acetaminophen [Tylenol ES 500 mg (*)] 500 mg PO TID 06/21/16 [Last Taken 14:00] Cholecalciferol Vit D3 [Vitamin D3 (*)] 50,000 unit PO Q30D 06/21/16 [Last Taken 01/21/17 17:00] Citalopram Hydrobromide [Citalopram HBr] 20 mg PO DAILY 06/21/16 [Last Taken 08:00] Levothyroxine [Synthroid 50 mcg (*)] 50 mcg PO DAILY@08 06/21/16 [Last Taken 08:00] Lisinopril [Zestril 10 mg (*)] 10 mg PO DAILY 06/21/16 [Last Taken 02/15/17 08: 00] Memantine HCl [Namenda 10 mg] 10 mg PO BID 06/21/16 [Last Taken 02/15/17 08:00] Metoprolol Tartrate [Lopressor 25 mg (*)] 12.5 mg PO DAILY 06/21/16 [Last Taken 02/15/17 08:00] Sennosides/Docusate Sodium [Senokot-S] 1 each PO BID 06/21/16 [Last Taken 08:00] Tiotropium Inhaler [Spiriva Inhaler (RX)] 1 inh IH DAILY 06/21/16 [Last Taken 08:00] metFORMIN HCL [Glucophage 500 mg (*)] 1,000 mg PO BID@,06/21/16 [Last Taken 02/15/17 08:00] Ascorbic Acid [Vitamin C 500 mg (*)] 500 mg PO BID 02/15/17 [Last Taken 08:00] Dextromethorphan HBr/Quinidine [Nuedexta 20-10 mg Capsule] 1 each PO BID@,02/15/17 [Last Taken 02/15/17 08:00] Herbals/Supplements -Info Only 1 ea PO DAILY 02/15/17 [Last Taken Unknown] Linagliptin [Tradjenta] 5 mg PO DAILY 02/15/17 [Last Taken 02/15/17 08:00] Methenamine Divya [Hiprex 1 gm (*)] 1 gm PO BID 02/15/17 [Last Taken 02/15/17 08: 00] Nitrofurantoin Monohyd/M-Cryst [Macrobid 100 mg Capsule] 100 mg PO HS 02/15/17 [ Last Taken 02/14/17 20:00] OLANZapine [Zyprexa] 10 mg PO DAILY 02/15/17 [Last Taken 02/15/17 08:00] Polyethylene Glycol 3350 [Miralax 17 gm (*)] 17 gm PO HS 02/15/17 [Last Taken 20:00] I have personally reviewed and updated: family history, medical history, social history, surgical history - Past Medical History diabetes type 2, hypertension Additional medical history: Solitary right kidney status post left-sided nephrectomy, the patient does not have renal cell carcinoma. Permanent atrial fibrillation. Severe dementia, but able to recognize daughter at baseline, able to participate in meals at baseline - Surgical History Additional surgical history: Left-sided nephrectomy 20 years ago - Family History Additional family history: Her biologic daughter reports no underlying rheumatologic issues - Social History Smoking Status: Former smoker Alcohol Use: None Drug Use: None Additional social history: Completely dependent in her ADLs, resides at [facility] Review of Systems Review of Systems: ROS: 10pt was reviewed & negative except for what was stated in HPI & below Constitutional: Reports: other (Anorexia) Neurological: Reports: other (Constant lip smacking, reduced ability to recognize) Physical Exam Physical Exam: Temp Pulse Resp BP Pulse Ox 37.0 C 87 18 105/89 H 100 02/15/17 19:09 02/15/17 22:09 02/15/17 22:09 02/15/17 22:09 02/15/17 22:09 O2 (L/minute) 2 Constitutional: no apparent distress, not in pain, chronically ill appearing, No uncomfortable Eyes: anicteric sclera, EOMI, other (Constricted pupils) Ears, Nose, Mouth, Throat: moist mucous membranes, hearing normal, ears appear normal, no oral mucosal ulcers, other (Constant lip smacking) Cardiovascular: irregularly irregular, No systolic murmur, No tachycardia, No edema Respiratory: no respiratory distress, no rales or rhonchi, clear to auscultation Gastrointestinal: normoactive bowel sounds, tenderness (Right flank), No guarding, No distension Genitourinary: no bladder fullness, no bladder tenderness, other (Right CVA tenderness) Skin: other (Soft tissue mass in the periumbilical area without any overlying erythema or ulceration) Neurologic: other (Alert awake oriented x1 only, patient able to move bilateral upper extremities, constantly rocking her bilateral lower extremities,) Psychiatric: flat affect, other (Lethargic but arousable to voice, concentration is 0/7, naming 0/3) Lab Data & Imaging Review 02/15/17 16:20 02/15/17 16:20 WBC 15.37 10^3/uL (3.80-9.50) H 02/15/17 16:20 RBC 4.21 10^6/uL (4.18-5.33) 02/15/17 16:20 Hgb 12.5 g/dL (12.6-16.3) L 02/15/17 16:20 Hct 36.1 % (38.0-47.0) L 02/15/17 16:20 MCV 85.7 fL (81.5-99.8) 02/15/17 16:20 MCH 29.7 pg (27.9-34.1) 02/15/17 16:20 MCHC 34.6 g/dL (32.4-36.7) 02/15/17 16:20 RDW 15.3 % (11.5-15.2) H 02/15/17 16:20 Plt Count 247 10^3/uL (150-400) 02/15/17 16:20 MPV 11.1 fL (8.7-11.7) 02/15/17 16:20 Neut % (Auto) 86.9 % (39.3-74.2) H 02/15/17 16:20 Lymph % (Auto) 6.2 % (15.0-45.0) L 02/15/17 16:20 [place] % (Auto) 5.7 % (4.5-13.0) 02/15/17 16:20 Eos % (Auto) 0.1 % (0.6-7.6) L 02/15/17 16:20 Baso % (Auto) 0.3 % (0.3-1.7) 02/15/17 16:20 Nucleat RBC Rel Count 0.0 % (0.0-0.2) 02/15/17 16:20 Absolute Neuts (auto) 13.37 10^3/uL (1.70-6.50) H 02/15/17 16:20 Absolute Lymphs (auto) 0.96 10^3/uL (1.00-3.00) L 02/15/17 16:20 Absolute Monos (auto) 0.87 10^3/uL (0.30-0.80) H 02/15/17 16:20 Absolute Eos (auto) 0.01 10^3/uL (0.03-0.40) L 02/15/17 16:20 Absolute Basos (auto) 0.04 10^3/uL (0.02-0.10) 02/15/17 16:20 Absolute Nucleated RBC 0.00 10^3/uL (0-0.01) 02/15/17 16:20 Immature Gran % 0.8 % (0.0-1.1) 02/15/17 16:20 Immature Gran # 0.12 10^3/uL (0.00-0.10) H 02/15/17 16:20 Sodium 136 mEq/L (134-144) 02/15/17 16:20 Potassium 4.4 mEq/L (3.5-5.2) 02/15/17 16:20 Chloride 106 mEq/L (97-110) 02/15/17 16:20 Carbon Dioxide 17 mEq/l (22-31) L 02/15/17 16:20 Anion Gap 13 mEq/L (8-16) 02/15/17 16:20 BUN 39 mg/dL (7-23) H 02/15/17 16:20 Creatinine 1.3 mg/dL (0.6-1.0) H 02/15/17 16:20 Estimated GFR 40 02/15/17 16:20 Glucose 176 mg/dL (70-100) H 02/15/17 16:20 Calcium 10.0 mg/dL (8.5-10.4) 02/15/17 16:20 Total Bilirubin 0.9 mg/dL (0.1-1.4) 02/15/17 16:20 Conjugated Bilirubin 0.3 mg/dL (0.0-0.5) 02/15/17 16:20 Unconjugated Bilirubin 0.6 mg/dL (0.0-1.1) 02/15/17 16:20 AST 21 IU/L (14-46) 02/15/17 16:20 ALT 27 IU/L (9-52) 02/15/17 16:20 Alkaline Phosphatase 78 IU/L (38-126) 02/15/17 16:20 Troponin I 0.027 ng/mL (0.000-0.034) 02/15/17 16:20 Total Protein 6.3 g/dL (6.3-8.2) 02/15/17 16:20 Albumin 3.7 g/dL (3.5-5.0) 02/15/17 16:20 Urine Color YELLOW 02/15/17 19:57 Urine Appearance HAZY 02/15/17 19:57 Urine pH 5.0 (5.0-7.5) 02/15/17 19:57 Ur Specific [place] 1.020 (1.002-1.030) 02/15/17 19:57 Urine Protein NEGATIVE (NEGATIVE) 02/15/17 19:57 Urine Ketones TRACE (NEGATIVE) H 02/15/17 19:57 Urine Blood 1+ (NEGATIVE) H 02/15/17 19:57 Urine Nitrate NEGATIVE (NEGATIVE) 02/15/17 19:57 Urine Bilirubin NEGATIVE (NEGATIVE) 02/15/17 19:57 Urine Urobilinogen NEGATIVE EU (0.2-1.0) 02/15/17 19:57 Ur Leukocyte Esterase 1+ (NEGATIVE) H 02/15/17 19:57 Urine RBC 25-50 /hpf (0-3) H 02/15/17 19:57 Urine WBC 15-25 /hpf (0-3) H 02/15/17 19:57 Ur Epithelial Cells TRACE /lpf (NONE-1+) 02/15/17 19:57 Urine Mucus TRACE /lpf (NONE-1+) 02/15/17 19:57 Urine Glucose NEGATIVE (NEGATIVE) 02/15/17 19:57 Visualized and Interpreted Chest x-ray results: Yes Chest X-Ray results: no infiltrate Assessment & Plan Assessment: 76-year-old female presenting with acute on chronic encephalopathy in the setting of suspected pyelonephritis Plan: 1. Acute on chronic encephalopathy. Evidenced by global brain dysfunction characterized as poor level of interactive this, reduce level of physical functioning and reduction in ability to complete any activities of daily living including taking meals, recognizing familiar faces, sitting upright, most likely secondary to toxic effects of acute infection -patient will require a complete assistance with ADLs, get occupational and cognitive therapy evals -will require complete care at care home facility once her acute process resolves -evaluate further concomitant infections with respiratory viral panel -recommend palliative consultation to support the daughter and to continue to address goals of care moving forward 2. Suspected pyelonephritis. Acute, new problem this provider, further workup indicated. Evidenced by positive urinalysis, history of recurrence urinary tract infections, right-sided CVA tenderness, leukocytosis -urine culture sent, send blood cultures -get renal ultrasound to evaluate for perinephric abscess, perinephric stranding -discussed with Dr. Dewayne Jackson in the emergency department, he has reported to me that the patient has received IV ceftriaxone, IV fluids, continue -order outside records including urine culture results from Dr. Erick Saini office -hold patient's Macrobid suppressive therapy given that she is currently receiving full strength antibiotics 3. Acute kidney injury. Most likely secondary to hypovolemia in the setting of infection, baseline serum creatinine level 0.9 -reviewed outside records including 07/07/[address] Ish Yee, reports patient was admitted for acute encephalopathy in the setting of mechanical fall, post concussive syndrome, with a creatinine level around 0.9 -monitor strict I&Os, weights, serum creatinine level -continue IV fluids -remove Zaidi catheter with trial void in a.m. 4. Permanent atrial fibrillation. She currently appears to be in AFib, monitor on telemetry for acute rapid ventricular response -continue metoprolol tartrate, currently dosed once daily, can up titrate to twice daily if required for rate control -continue systemic anticoagulation 5. Hypertension. Chronic, hold additional antihypertensives in the setting of infection 6. Diabetes mellitus type 2. Hold metformin in the setting of acute kidney injury, continue gliptin, continue to monitor daily fasting blood glucose and hold on insulin sliding scale given her risk of provoking hypoglycemia 7. Tardive dyskinesia. Potentially secondary to Zyprexa use, discussed this with the patient's daughter, this has been useful for behavior management at [facility] -recommend initiating Cogentin engaging affect -her current dyskinetic exacerbation could be secondary to a combination of infection, worsening dementia, antipsychotic medication Diet. Regular Prophylaxis. High risk patient, currently on systemic anticoagulation Code status. Do not resuscitate per advanced directive, daughter is [facility] Disposition. Anticipated discharge uncertain this time, anticipated length stay is greater than 48 hours warranting inpatient admission for reasonable medical necessity including acute on chronic encephalopathy in the setting of high risk pyelonephritis, acute kidney injury, atrial fibrillation.
[2017-02-15] MEDS: NS 1,000 ML IV SCH (23:50)
[2017-02-16] MEDS: ACETAMINOPHEN 500 MG TAB PO SCH ×2 (00:20→11:25)
[2017-02-16] MEDS: APIXABAN 5 MG TAB PO SCH ×3 (00:20→19:27)
--- NOTE | 2017-02-16 05:18 | CPEKG ---
Heart Rate: 68 RR Interval: 882 P-R Interval: 128 QRSD Interval: 90 QT Interval: 444 QTC Interval: 473 P [place]: -66 QRS [place]: -19 T Wave [place]: 84 EKG Severity - ABNORMAL ECG - EKG Impression: SINUS OR ECTOPIC ATRIAL RHYTHM EKG Impression: PAIRED VENTRICULAR PREMATURE COMPLEXES EKG Impression: LOW VOLTAGE IN FRONTAL LEADS EKG Impression: CONSIDER INFERIOR INFARCT Electronically Signed By: Antonio Argueta 16-Feb-2017 07:04:39
[2017-02-16] MEDS: NS 1,000 ML IV SCH ×2 (07:04→14:20)
[2017-02-16] MEDS ORDERED: Herbals/Supplements -Info Only PO SCH (09:00)
[2017-02-16] MEDS ORDERED: OLANZapine 10 MG TAB PO SCH (09:00)
[2017-02-16] MEDS ORDERED: METOPROLOL TARTRATE 25 MG TAB PO SCH (09:00)
[2017-02-16] MEDS ORDERED: ASCORBIC ACID 500 MG TAB PO SCH (09:00)
[2017-02-16] MEDS: TIOTROPIUM INHALER 18 MCG/DOSE 5 DOSE/MDI IH SCH (09:18)
--- NOTE | 2017-02-16 09:36 | PDMN ---
Medical Necessity Medical necessity: est los>2mn for acute on chronic encephalopathy, suspected high risk pyelonephritis, LIDA, tardive dyskinesia, and permanent afib; hx DM, HTN, solitary R kidney, severe dementia; per order and H&P 02/15/17
[2017-02-16] MEDS ORDERED: D50W 25 GM/50 ML SYR IVP PRN (09:58)
[2017-02-16] MEDS ORDERED: D50W 25 GM/50 ML VIAL IVP PRN (10:00)
[2017-02-16] MEDS: DEXTROMETHORPHAN HBR PO SCH ×2 (11:26→18:03)
[2017-02-16] MEDS: QUINIDINE PO SCH ×2 (11:26→18:03)
[2017-02-16] MEDS: CITALOPRAM 20 MG TAB PO SCH (11:57)
[2017-02-16] MEDS: LEVOTHYROXINE 50 MCG TAB PO SCH (11:57)
[2017-02-16] MEDS: BENZTROPINE MESYLATE 1 MG TAB PO SCH ×2 (11:57→19:27)
[2017-02-16] MEDS: MEMANTINE HCL 5 MG TAB PO SCH ×2 (11:58→19:26)
[2017-02-16] MEDS: METHENAMINE HIPP 1 GM TAB PO SCH ×2 (11:58→19:26)
[2017-02-16] MEDS: SENNOSIDES/DOCUSATE SODIUM TAB PO SCH ×2 (11:59→19:26)
--- NOTE | 2017-02-16 12:29 | ASMTCMCOM ---
CM Note CM Note Notes: Patient admitted with acute on chronic encephalopathy. She is completely dependent in her ADLs at [facility] where she resides. PT/OT/MRB ENGINEER ordered although they will likely not eval d/t patient's severe dementia at baseline. Palliative care conference scheduled for tomorrow a 0900 with patient's daughter Jesenia to discuss alternate placement options. CM will attend. Date Signed: 02/16/2017 12:28 PM Electronically Signed By:Meredith Estrada RN
[2017-02-16] MEDS: INSULIN LISPRO 100 UNIT/ML SC SCH ×2 (14:45→18:32)
--- NOTE | 2017-02-16 15:02 | HOSPPROG ---
Hospitalist Progress Note Objective: Vital Signs Temp Pulse Resp BP Pulse Ox 36.7 C 53 L 16 96/58 L 97 02/16/17 11:57 02/16/17 12:00 02/16/17 11:57 02/16/17 12:00 02/16/17 11:57 Microbiology 02/15/17 21:50 Respiratory Panel (PCR) - Final Nasal, Sinus - Swab No Organism Detected 02/15/17 02/16/17 02/17/17 05:59 05:59 05:59 Intake Total 3000 Output Total 100 475 Balance 2900 -475 ICD10 Worksheet Patient Problems: Problems Problem Status Onset Altered mental status Acute Dehydration Acute Failure to thrive Acute UTI (urinary tract infection) Acute Delirium Acute Dementia Acute Pneumonia Acute Sepsis Acute
--- NOTE | 2017-02-16 15:13 | HOSPPROG ---
Hospitalist Progress Note Assessment/Plan: # Acute on chronic encephalopathy- suspect secondary to acute infection- baseline dementia is advanced - Tx underlying pyelonephritis - PT/OT - consulting palliative care - avoid benzodiazepines # Pyelonephritis- Acute-positive urinalysis- leukocytosis history of recurrence urinary tract infections, right-sided CVA tenderness urine culture sent- blood cultures NGTD-renal ultrasound without evidence of perinephric abscess or perinephric stranding -continue IV ceftriaxone, - cont IV fluids -hold patient's Macrobid suppressive therapy # Acute kidney injury- suspect 2/2 hypovolemia in the setting of infection, baseline serum creatinine level 0.9-> 1.3 - cont IVF - recheck in am # Permanent atrial fibrillation- EKG (personally reviewed and interpreted) shows Atiral Fibrillation -hold metoprolol tartrate as BP and HR both low -continue eliquis # Hypertension- BP actually low in setting of infection - hold antihypertensives and follow # Diabetes mellitus type 2- BS 176 on presentation - follow FSBS - Hold metformin - hold gliptin as PO has been poor # Tardive dyskinesia - Potentially secondary to Zyprexa use - potentially exacerbated by acute illness - cogentin started Diet. Regular Prophylaxis. High risk patient, currently on systemic anticoagulation Code status. Do not resuscitate per advanced directive, daughter is MPOA Disposition. > 2MN as pt requires ongoing tx for acute infection and encephalopathy I have discussed the case with Palliative Care - a meeting to discuss goals of care have been set for tomorrow 9 am with daughter Subjective: no events overnight Objective: Vital Signs Temp Pulse Resp BP Pulse Ox 36.7 C 53 L 16 96/58 L 97 02/16/17 11:57 02/16/17 12:00 02/16/17 11:57 02/16/17 12:00 02/16/17 11:57 Microbiology 02/15/17 21:50 Respiratory Panel (PCR) - Final Nasal, Sinus - Swab No Organism Detected 02/15/17 02/16/17 02/17/17 05:59 05:59 05:59 Intake Total 3000 Output Total 100 475 Balance 2900 -475 - Physical Exam Constitutional: chronically ill appearing Eyes: anicteric sclera Ears, Nose, Mouth, Throat: dry mucous membranes Cardiovascular: irregularly irregular Respiratory: no respiratory distress, no rales or rhonchi Gastrointestinal: normoactive bowel sounds Genitourinary: no bladder fullness Skin: warm Musculoskeletal: No asymmetric calves Neurologic: No AAOx3 Psychiatric: encephalopathic, No interacting appropriately Lymph, Heme, Immunologic: no cervical LAD ICD10 Worksheet Patient Problems: Problems Problem Status Onset Altered mental status Acute Dehydration Acute Failure to thrive Acute UTI (urinary tract infection) Acute Delirium Acute Dementia Acute Pneumonia Acute Sepsis Acute
[2017-02-16] MEDS ORDERED: OLANZapine DISINTEGR 10 MG TAB PO ONE (15:25)
[2017-02-16] MEDS: POLYETHYLENE GLYCOL 3350 17 GM PKT PO SCH (19:27)
[2017-02-16] MEDS ORDERED: OLANZapine DISINTEGR 10 MG TAB PO SCH (21:00)
[2017-02-17] MEDS: INSULIN LISPRO 100 UNIT/ML SC SCH ×4 (08:23→17:15)
[2017-02-17] MEDS: BENZTROPINE MESYLATE 1 MG TAB PO SCH ×2 (08:24→20:16)
[2017-02-17] MEDS: APIXABAN 5 MG TAB PO SCH ×2 (08:24→20:16)
[2017-02-17] MEDS: LEVOTHYROXINE 50 MCG TAB PO SCH (08:24)
[2017-02-17] MEDS: SENNOSIDES/DOCUSATE SODIUM TAB PO SCH ×2 (08:24→20:16)
[2017-02-17] MEDS: CITALOPRAM 20 MG TAB PO SCH (08:24)
[2017-02-17] MEDS: METHENAMINE HIPP 1 GM TAB PO SCH ×2 (08:24→20:16)
[2017-02-17] MEDS: MEMANTINE HCL 5 MG TAB PO SCH ×2 (08:24→20:16)
[2017-02-17] MEDS: QUINIDINE PO SCH ×2 (08:37→16:44)
[2017-02-17] MEDS: DEXTROMETHORPHAN HBR PO SCH ×2 (08:37→16:44)
[2017-02-17] MEDS: TIOTROPIUM INHALER 18 MCG/DOSE 5 DOSE/MDI IH SCH (09:46)
--- NOTE | 2017-02-17 09:51 | ASMTCMCOM ---
CM Note CM Note Notes: Met with patient's daughter with Palliative care members. Daughter states she wants alternative to [facility] for her mother's care. She is not quite at the point to go strictly palliative at this point. Lengthy discussion with palliative care to establish care directives. Referrals made to other facilities. Patient is dependent for all adl's at this point. Plan disposition to SNF. CM to follow. Date Signed: 02/17/2017 09:50 AM Electronically Signed By:Ana Muller RN
[2017-02-17] MEDS ORDERED: OLANZapine 10 MG TAB PO ONE (12:55)
--- NOTE | 2017-02-17 13:04 | HOSPPROG ---
Hospitalist Progress Note Assessment/Plan: DIAGNOSES: -acute encephalopathy in the setting of acute medical illnesses and chronic dementia + behavioral issues significantly interfering with her ability to provide nursing medical care here in the hospital and patient safety is compromised with fall risk due to agitation, impulsive behavior, lack of awareness of safety issues on part of the patient -febrile illness, uncertain etiology with consideration of possible pyelonephritis as cause, urine cultures pending + no fevers here so far + mild pyuria suggests urinary tract as a possible source, cultures pending -acute kidney injury, need to recheck renal function at this time, suspect hemodynamic mechanism + PASHA-inhibitor currently held -hypotension, multifactorial, do not suspect sepsis at this time + PASHA-inhibitor and beta-kristie currently held -diabetes mellitus type 2, currently hyperglycemic, + metformin currently held due to renal insufficiency -history of permanent AFib, on chronic anticoagulation, rate controlled here -Al of dyskinesia PLANS: -would been unable get blood samples so far to retest urine function and white count but continue to make efforts toward that -due to patient's safety issues and inability to manage her issues with non medicinal approaches so far will give her another dose of olanzapine today -continue current antibiotic, and follow cultures closely -IV fluids as she will allow which has been difficult so far today -for the moment will attempt to use insulin to gain some control of sugars until we can get her back on oral medicines, will either resume metformin or try other oral medication depending on her renal function SUBJECTIVE: The patient denies any pain or discomfort, admits to feeling very anxious, when I ask her what she feels anxious about she says the big thing in is unable to elaborate on what that means. She does not admit to any other discomforts or symptomatic issues but she is certainly confused enough to potentially be unable to name or notice any symptoms. OBJECTIVE Vitals reviewed: No fever, blood pressure is better than they were yesterday afternoon vitals otherwise stable Exam: alert agitated, disoriented, unable to lie still in bed, at risk of falling out of bed due to continuous movement; she does interact and have conversation but she clearly does not know where she is or why she is here skin warm dry color ok resps not labored lungs clear BSs heart regular abd soft nondistended nontender, bowel sounds present limbs warm, no edema iv site ok No labs done yet today as the patient has not been able to a lower cooperate with blood draw Cultures remain negative to date Objective: Vital Signs Temp Pulse Resp BP Pulse Ox 36.3 C 68 16 118/72 99 02/17/17 07:38 02/17/17 11:26 02/17/17 11:26 02/17/17 11:26 02/17/17 11:26 Microbiology 02/15/17 21:50 Respiratory Panel (PCR) - Final Nasal, Sinus - Swab No Organism Detected 02/16/17 02/17/17 02/18/17 06:59 06:59 06:59 Intake Total 3000 280 1000 Output Total 225 350 Balance 2775 -70 1000 - Time Spent With Patient Time Spent with Patient: greater than 35 minutes Time Spent with Patient: Greater than 35 minutes spent on this patients care, greater than 50% of time spent counseling, educating, and coordinating care regarding the above mentioned plan. ICD10 Worksheet Patient Problems: Problems Problem Status Onset Altered mental status Acute Dehydration Acute Failure to thrive Acute UTI (urinary tract infection) Acute Delirium Acute Dementia Acute Pneumonia Acute Sepsis Acute
[2017-02-17 13:40] LABS: % IMMATURE GRANULYOCYTES 0.5 % (0.0-1.1); ABSOLUTE IMMATURE GRANULOCYTES 0.05 10^3/uL (0.00-0.10); ADD DIFF? NO; ADD MORPH? NO; ADD SCAN? NO; ATYPICAL LYMPHOCYTE FLAG 0 (0-99); FRAGMENT RBC FLAG 0 (0-99); HEMATOCRIT 35.6 % (38.0-47.0); HEMOGLOBIN 11.8 g/dL (12.6-16.3); LEFT SHIFT FLG 0 (0-99); LIPEMIA HEMOLYSIS FLAG 80 (0-99); MEAN CELL HEMOGLOBIN 29.7 pg (27.9-34.1); MEAN CELL HEMOGLOBIN CONCENTR. 33.1 g/dL (32.4-36.7); MEAN CELL VOLUME 89.7 fL (81.5-99.8); MEAN PLATELET VOLUME 11.4 fL (8.7-11.7); PLATELET CLUMPS FLAG 10 (0-99); PLATELET COUNT 193 10^3/uL (150-400); RED BLOOD CELL COUNT 3.97 10^6/uL (4.18-5.33); RED CELL DISTRIBUTION WIDTH 15.7 % (11.5-15.2)
[2017-02-17 13:48] LABS: ANION GAP 11 mEq/L (8-16); CALCIUM 8.2 mg/dL (8.5-10.4); CARBON DIOXIDE 17 mEq/l (22-31); CHLORIDE 112 mEq/L (97-110); CREATININE 0.8 mg/dL (0.6-1.0); GLOMERULAR FILTRATION RATE > 60; GLUCOSE 157 mg/dL (70-100); POTASSIUM 4.6 mEq/L (3.5-5.2); SODIUM 140 mEq/L (134-144)
--- NOTE | 2017-02-17 13:51 | PDPCPN ---
Palliative Care Progress Note Assessment/Plan: Referring provider: Dr Ramirez Reason for consult: Complex medical decision making Symptom control HPI: Luis Carlos Arnold is a 76 yo with PMH dementia, HTN, DM, and a fib admitted to the hospital for altered mental status and decrease in baseline. Fuond to have possible pyelonephritis being treated with antibiotics and IV fluids. Mental status has waxed and waned but is still below her previous baseline. Also with fall 2 days prior to admission with no reported injuries. Ct head negative on admission. Palliative care consulted for complex medical decision making. Spoke with doroteo Ba outside of the room this morning. She stated she does not know her biological mother very well as she was raised by her Aunt ( Luis Carlos's sister). She became involved in her care when she developed dementia and was living down in [place]. She moved her to be closer to her last year when she required more care. At baseline she is able to sit up and eat with some help. She also recognizes her daughter at baseline. She describes her mother as "the aunt i knew who was always away doing her own thing". She states she does not know what her end of life wishes would be exactly as they have never been able to have a conversation before she had dementia. She feels quality of life is important and wants to maintain a quality of life. Currently she feels her quality of life is poor due to her increased confusion and lack of recognition. Discussed the normal course of dementia is with infections, falls, and overall decline in cognition and functional status. Also discussed with each hospitalization or infection the baseline is often lower and people never fully recover with underlying dementia. Discussed future hospitalizations and whether she would want a future infection treated or to allow for a natural course of disease and not treat future infections. She would like to talk it over with her and sister but feels they will defer to whatever choice she wants. Assessment: Physical: - Pain: none - tylenol PRN - Cough: on occasion with eating per daughter - aspiration precautions - assistance with meals - weakness/fall: - nursing support - PT/OT as able Emotional/psychological: Acute on chronic encephalopathy - maintain normal routines - zyprexa scheduled- causing tardive dyskinesia also on cogentin Advanced Care Planning: Is patient decisional?: no Code Status: DNR POA: Doroteo Ba is MDPOA. Plan: Cm working on alternative options for LTC on discharge. Subjective: sleeping Objective: Social History: Has 2 biological children twin daughters but they were raised by their Aunt. From [place] Medication list reviewed ROS: General: fatigue, weakness ENT: dysphagia Resp: cough GI: negative : negative MS: negative Skin: negative Neuro: negative Psych: confusion, anxiety Functional assessment: PPS: 40% Functional status:dependent on ADLs, IADLs Vital Signs Temp Pulse Resp BP Pulse Ox 36.3 C 68 16 118/72 99 02/17/17 07:38 02/17/17 11:26 02/17/17 11:26 02/17/17 11:26 02/17/17 11:26 Microbiology 02/15/17 21:50 Respiratory Panel (PCR) - Final Nasal, Sinus - Swab No Organism Detected 02/16/17 02/17/17 02/18/17 05:59 05:59 05:59 Intake Total 3000 280 1000 Output Total 100 475 Balance 2900 -195 1000 Physical Exam - Physical Exam General Appearance: no apparent distress, other (sleeping) Respiratory: No respiratory distress, No accessory muscle use Skin: normal color, warm/dry Extremities: No pedal edema Neuro/Psych: other (sleeping) ICD10 Worksheet Patient Problems: Problems Problem Status Onset Altered mental status Acute Dehydration Acute Failure to thrive Acute Palliative care encounter Acute UTI (urinary tract infection) Acute Delirium Acute Dementia Acute Pneumonia Acute Sepsis Acute - ICD10 Problem Qualifiers (1) Palliative care encounter
--- NOTE | 2017-02-17 14:59 | WOCRNPDOC ---
WOCRN Advanced Assessment Note - Skin Integrity Problem, Advanced Assess Right Medial Ankle Abrasion Dressing Type: Band Aid Dressing Description: Intact, Shadowed Exudate Amount: Scant Exudate Color: Reddish/Yellow Exudate Characteristic(s): Serosanguinous Integumentary Issue Intervention: Dressing Removed Kristy Wound Tissue: Blanching, Erythema Kristy Wound Swelling: None Wound Bed Color: Campbell Wound Bed Constitution: Smooth Tissue Wound Edges: Attached Site Measurement - Head-to-Toe Length X Width X Depth (cm): 0.6x0.4x0.1 Skin Integrity Problem Comment: Band aid removed from right medial malleolus. Paitient complains of tenderness but is easily redirectable. Per family report, patient sits up in her rocking chair at home and rubs her ankles together. This wound is likely the result of the friction from this habit. Wound care will not continue to follow this wound. Please reconsult PRN. Sacrum Dressing Type: Open to Air Exudate Amount: None Kristy Wound Tissue: Blanching, Erythema Kristy Wound Swelling: None Wound Bed Color: Campbell Wound Edges: Epithelizing Skin Integrity Problem Comment: Patient rolled to her left side with help from NADIR Peoples. This caused the patient to become somewhat agitated. Skin over the sacrum and coccyx is intact and reddened but blanching. Patient is incontinent and with poor mobility. She needs to be turned on a regular basis and will benefit from remaining free of briefs while in bed.
[2017-02-17] MEDS: NS 1,000 ML IV SCH (15:20)
[2017-02-17] MEDS ORDERED: LORazepam 2 MG/ML INJ IVP ONE (16:52)
[2017-02-17] MEDS: POLYETHYLENE GLYCOL 3350 17 GM PKT PO SCH (20:16)
[2017-02-17 20:37] LABS: % IMMATURE GRANULYOCYTES 0.6 % (0.0-1.1); ABSOLUTE IMMATURE GRANULOCYTES 0.05 10^3/uL (0.00-0.10); ADD DIFF? NO; ADD MORPH? NO; ADD SCAN? NO; ATYPICAL LYMPHOCYTE FLAG 0 (0-99); FRAGMENT RBC FLAG 0 (0-99); HEMATOCRIT 33.5 % (38.0-47.0); HEMOGLOBIN 10.9 g/dL (12.6-16.3); LEFT SHIFT FLG 0 (0-99); LIPEMIA HEMOLYSIS FLAG 80 (0-99); MEAN CELL HEMOGLOBIN 30.1 pg (27.9-34.1); MEAN CELL HEMOGLOBIN CONCENTR. 32.5 g/dL (32.4-36.7); MEAN CELL VOLUME 92.5 fL (81.5-99.8); PLATELET CLUMPS FLAG 20 (0-99); PLATELET COUNT 145 10^3/uL (150-400); RED BLOOD CELL COUNT 3.62 10^6/uL (4.18-5.33); RED CELL DISTRIBUTION WIDTH 15.4 % (11.5-15.2)
[2017-02-18] MEDS: LEVOTHYROXINE 50 MCG TAB PO SCH (08:35)
[2017-02-18] MEDS: INSULIN LISPRO 100 UNIT/ML SC SCH ×6 (08:35→20:02)
[2017-02-18] MEDS: MEMANTINE HCL 5 MG TAB PO SCH ×2 (08:36→20:57)
[2017-02-18] MEDS: SENNOSIDES/DOCUSATE SODIUM TAB PO SCH ×2 (08:36→22:17)
[2017-02-18] MEDS: BENZTROPINE MESYLATE 1 MG TAB PO SCH ×2 (08:36→20:58)
[2017-02-18] MEDS: CITALOPRAM 20 MG TAB PO SCH (08:36)
[2017-02-18] MEDS: METHENAMINE HIPP 1 GM TAB PO SCH ×2 (08:37→20:58)
[2017-02-18] MEDS: APIXABAN 5 MG TAB PO SCH ×3 (08:37→20:58)
[2017-02-18] MEDS: TIOTROPIUM INHALER 18 MCG/DOSE 5 DOSE/MDI IH SCH (09:09)
--- NOTE | 2017-02-18 09:10 | HOSPPROG ---
Hospitalist Progress Note Assessment/Plan: DIAGNOSES: -acute encephalopathy in the setting of acute medical illnesses and chronic dementia + remains agitated today but appears somewhat better than yesterday -febrile illness, uncertain etiology with consideration of possible pyelonephritis as cause, urine cultures pending + no fevers here so far, I believe this syndrome is currently resolved + mild pyuria suggests urinary tract as a possible source, but cultures negative so unlikely -acute kidney injury, suspect hemodynamic mechanism; only stable at baseline + PASHA-inhibitor currently held -hypotension, resolved, multifactorial, do not suspect sepsis at this time + hypotension resolved, PASHA-inhibitor and beta-kristie currently held -diabetes mellitus type 2, blood sugars in reasonable condition at this time + metformin currently held due to renal insufficiency -history of permanent AFib, on chronic anticoagulation, rate controlled here -Tardive dyskinesia PLANS: -continue current medical management -I do not see a bowel movement recorded here, is buttock possible that constipation could be presenting could be aggravating her agitation, will work on treating constipation aggressively -at this time from a medical standpoint she is stable for discharge from the hospital, working with complex case manager on seeing if we can get her back to [facility] at this time SUBJECTIVE: Again denies any pain or discomfort Does not feel anxious this morning OBJECTIVE Vitals reviewed: No fever, blood pressure is better than they were yesterday afternoon vitals otherwise stable Exam: Still somewhat agitated but less so than yesterday skin warm dry color ok resps not labored lungs clear BSs heart regular abd soft nondistended nontender, bowel sounds present limbs warm, no edema iv site ok Labs from yesterday showed stable renal function and electrolytes, unremarkable CBC Objective: Vital Signs Temp Pulse Resp BP Pulse Ox 35.9 C L 64 17 134/72 H 95 02/18/17 07:38 02/17/17 23:41 02/17/17 23:41 02/18/17 07:38 02/17/17 23:41 Laboratory Results 02/17/17 20:28 02/17/17 13:11 02/17/17 02/18/17 02/19/17 06:59 06:59 06:59 Intake Total 280 1470 Output Total 350 Balance -70 1470 - Time Spent With Patient Time Spent with Patient: greater than 35 minutes Time Spent with Patient: Greater than 35 minutes spent on this patients care, greater than 50% of time spent counseling, educating, and coordinating care regarding the above mentioned plan. ICD10 Worksheet Patient Problems: Problems Problem Status Onset Altered mental status Acute Dehydration Acute Failure to thrive Acute Palliative care encounter Acute UTI (urinary tract infection) Acute Delirium Acute Dementia Acute Pneumonia Acute Sepsis Acute
[2017-02-18] MEDS ORDERED: APIXABAN 5 MG TAB TUBE SCH (09:15)
[2017-02-18] MEDS: DEXTROMETHORPHAN HBR PO SCH (09:17)
[2017-02-18] MEDS: QUINIDINE PO SCH (09:17)
--- NOTE | 2017-02-18 15:56 | ASMTCMCOM ---
CM Note CM Note Notes: Spoke w/pt's dtr re; dc back to [facility]. CM notified dtr that pt declined by [facility] of [facility], [facility]га [facility] and [facility] wants more info. Dtr does not want [facility] and asked that referral be sent to [facility]. CM faxed referral, also discussed that if [facility] declines pt is ready for dc and will need to return to , dtr verbalizes understanding. DC Plan: [facility] vs [facility] Date Signed: 02/18/2017 03:56 PM Electronically Signed By:Stella Birmingham RN
[2017-02-18] MEDS: POLYETHYLENE GLYCOL 3350 17 GM PKT PO SCH (22:17)
[2017-02-19 01:57] VITALS: TEMP 96.8
[2017-02-19] MEDS: INSULIN LISPRO 100 UNIT/ML SC SCH ×4 (07:59→14:41)
[2017-02-19] MEDS: BENZTROPINE MESYLATE 1 MG TAB PO SCH (08:00)
[2017-02-19] MEDS: CITALOPRAM 20 MG TAB PO SCH (08:00)
[2017-02-19] MEDS: APIXABAN 5 MG TAB PO SCH (08:00)
[2017-02-19] MEDS: LEVOTHYROXINE 50 MCG TAB PO SCH (08:00)
[2017-02-19] MEDS: MEMANTINE HCL 5 MG TAB PO SCH (08:00)
[2017-02-19] MEDS: METHENAMINE HIPP 1 GM TAB PO SCH (08:01)
[2017-02-19] MEDS: TIOTROPIUM INHALER 18 MCG/DOSE 5 DOSE/MDI IH SCH (08:33)
[2017-02-19 08:45] VITALS: BP 125/70; PULSE 59; RESP 16; O2SAT 94
[2017-02-19] MEDS: SENNOSIDES/DOCUSATE SODIUM TAB PO SCH (11:44)
--- NOTE | 2017-02-19 13:45 | ASMTCMCOM ---
CM Note CM Note Notes: Spoke with Kyree from the [facility]. They are facilating over patient's ability to meet criteria to their SNF as she would be placed as a room mate. Kyree states a site visit would be required. The patient has met criteria for dc since yesterday. Spoke with daughter to inform her patient is stable and ready to dc per her medical condition. She will continue to pursue other facility options independently. She askes that we call with a dc time so she can meet her mother over at [facility]. CM available if other needs arise. Date Signed: 02/19/2017 01:44 PM Electronically Signed By:Ana Muller RN
--- NOTE | 2017-02-19 14:38 | PDIAF ---
- Diagnosis Diagnosis: UTI with fever, encephalopathy Code Status: Do Not Resuscitate - Medication Management Discharge Medications: Medications to Continue on Transfer Acetaminophen [Tylenol ES 500 mg (*)] 500 mg PO Q6 PRN 06/21/16 [Last Taken 00:21] Acetaminophen [Tylenol ES 500 mg (*)] 500 mg PO TID 06/21/16 [Last Taken 14:00] Cholecalciferol Vit D3 [Vitamin D3 (*)] 50,000 unit PO Q30D 06/21/16 [Last Taken 01/21/17 17:00] Citalopram Hydrobromide [Citalopram HBr] 20 mg PO DAILY 06/21/16 [Last Taken 08:00] Levothyroxine [Synthroid 50 mcg (*)] 50 mcg PO DAILY@08 06/21/16 [Last Taken 08:00] Lisinopril [Zestril 10 mg (*)] 10 mg PO DAILY 06/21/16 [Last Taken 02/15/17 08: 00] Memantine HCl [Namenda 10 mg] 10 mg PO BID 06/21/16 [Last Taken 02/15/17 08:00] Metoprolol Tartrate [Lopressor 25 mg (*)] 12.5 mg PO DAILY 06/21/16 [Last Taken 02/15/17 08:00] Sennosides/Docusate Sodium [Senokot-S] 1 each PO BID 06/21/16 [Last Taken 08:00] Tiotropium Inhaler [Spiriva Inhaler (RX)] 1 inh IH DAILY 06/21/16 [Last Taken 08:00] metFORMIN HCL [Glucophage 500 mg (*)] 1,000 mg PO BID@06/21/16 [Last Taken 02/15/17 08:00] Apixaban [Eliquis] 5 mg PO BID #0 tab 06/25/16 [Last Taken 02/15/17 08:00] Ascorbic Acid [Vitamin C 500 mg (*)] 500 mg PO BID 02/15/17 [Last Taken 08:00] Dextromethorphan HBr/Quinidine [Nuedexta 20-10 mg Capsule] 1 each PO BID@08,16 02/15/17 [Last Taken 02/15/17 08:00] Herbals/Supplements -Info Only 1 ea PO DAILY 02/15/17 [Last Taken Unknown] Linagliptin [Tradjenta] 5 mg PO DAILY 02/15/17 [Last Taken 02/15/17 08:00] Methenamine Divya [Hiprex 1 gm (*)] 1 gm PO BID 02/15/17 [Last Taken 02/15/17 08: 00] OLANZapine [Zyprexa] 10 mg PO DAILY 02/15/17 [Last Taken 02/15/17 08:00] Polyethylene Glycol 3350 [Miralax 17 gm (*)] 17 gm PO HS 02/15/17 [Last Taken 20:00] Benztropine Mesylate [Cogentin] 1 mg PO BID tab 02/19/17 [Last Taken Unknown] Cephalexin [Keflex (*)] 500 mg PO Q6H 2 Days #8 cap 02/19/17 [Last Taken Unknown ] Discharge Medications: Refer to the Discharge Home Medication list for PRN reason. PICC Care - Routine: N/A - Orders Services needed: Registered Nurse, Certified Design Sales Consultant, Master Billing Typist Diet Recommendation: no restrictions on diet Diet Texture: Regular Texture Diet, Thin Liquids, Meds Whole w/Liquids - Follow Up Care Current Providers and Referrals: Patient,NotPresent [Unknown] - As per Instructions
--- NOTE | 2017-02-19 14:42 | PDDCSUM ---
Discharge Summary Discharge Summary: DISCHARGE DIAGNOSES: -acute encephalopathy with chronic dementia with behavioral issues -febrile illness, uncertain etiology to consider possible urinary tract infection as with there was mild pyuria with negative cultures; no fevers during her hospital stay -acute kidney injury, hemodynamic, resolved completely here HOSPITAL COURSE SUMMARY: This patient with chronic dementia with behavioral issues was transferred to the hospital with acute fever and more difficulty with mentation behaviors. The only significant finding on her initial evaluation here was some mild pyuria with inability to assess for any ear symptoms, and mild acute kidney injury. She was hydrated which lytic rapid resolution of the renal insufficiency back to baseline. She had no fever during her hospital stay at all. With the possibility of a urinary tract infection based on some mild pyuria she was treated with antibiotics. It appears that at this time she is back to or at least close to her baseline in terms of her dementia/delirium. Is notably however that she does take medications as a combination of dextromethorphan and quinidine and that this medicine is non formulary here so she did not receive that medicine here in hospital. She did have some fair degree of agitation and it may be that absence of this medicine was contributing to that in addition to multiple other factors. No other acute illnesses are identified at this time. It is felt that she still for transfer back to [facility] where she lives chronically. PENDING TEST RESULTS: None MEDICATION CHANGES: Addition Keflex for 500 mg four times daily 2 more days upon return to [facility] facility FOLLOW-UP PLAN: With medical and nursing staff at the nursing facility Greater than 35 minutes bedside and care coordination time today
--- NOTE | 2017-02-19 14:49 | ASMTCMCOM ---
CM Note CM Note Notes: Patient medically ready for discharge. She will return to [facility]. Denisse at has made stretcher transport arrangements for the pt. Spoke with Jesenia her daughter and she will try to meet them on arrival. All orders sent via [employer]. CM to follow. Date Signed: 02/19/2017 02:48 PM Electronically Signed By:Ana Muller RN
--- NOTE | 2017-02-20 11:11 | ASDISCHSUM ---
Discharge Information Plan Status:SNF Medically Cleared to Leave: Discharge Date:02/19/2017 03:59 PM CM D/C Disposition:Half-Way Facility ADT D/C Disposition:Half-Way Facility Projected Discharge Date:02/19/2017 11:00 AM Transportation at D/C: Discharge Delay Reason: Follow-Up Date:02/19/2017 11:00 AM Discharge Slot: Final Diagnosis: Placement Information Referral Type:*Mcfp/SNF Referral ID:[id number] Provider Name:Kwasi Bronwing/DouglasNewscronAMBER Address 1:[address] Phone Number: Address 2: Fax Number: [facility]:Kwasi Selection Factors: State:[place] Patient Contact Information Contact Name:SHAKEEL Relationship:Daughter Address: Work Phone: City: [facility] Phone: [facility] Code: Email: Financial Information Financial Class: Primary Plan Desc:MEDICARE INPATIENT Primary Plan Number:[id number] Secondary Plan Desc:MEDICA[place] Secondary Plan Number:[id number] Assessment Information [facility] CM Progress Note CM Note CM Note Notes: Patient admitted with acute on chronic encephalopathy. She is completely dependent in her ADLs at [facility] where she resides. PT/OT/LONG WALL MINING MACHINE HELPER ordered although they will likely not eval d/t patient's severe dementia at baseline. Palliative care conference scheduled for tomorrow a 0900 with patient's daughter Jesenia to discuss alternate placement options. CM will attend. Date Signed: 02/16/2017 12:28 PM Electronically Signed By:Meredith Estrada RN [facility] Length of stay for Answers: 1 day current admission Acuity / Level of Care Answers: Was the patient admitted to hospital via the emergency department? Yes: Comorbidities - select Answers: Dementia all that apply Emergency dept visits in Answers: 1 last 6 months Score: 8 Date Signed: 02/17/2017 09:47 AM Electronically Signed By:Ana Muller RN [facility] Progress Note CM Note CM Note Notes: Met with patient's daughter with Palliative care members. Daughter states she wants alternative to [facility] for her mother's care. She is not quite at the point to go strictly palliative at this point. Lengthy discussion with palliative care to establish care directives. Referrals made to other facilities. Patient is dependent for all adl's at this point. Plan disposition to SNF. CM to follow. Date Signed: 02/17/2017 09:50 AM Electronically Signed By:Ana Muller RN [facility] MARU Progress Note CM Note CM Note Notes: Spoke w/pt's dtr re; dc back to [facility]. CM notified dtr that pt declined by of [facility], Ольга Whitehead and Shashi wants more info. Dtr does not want [facility] and asked that referral be sent to [facility]. CM faxed referral, also discussed that if [facility] declines pt is ready for dc and will need to return to , dtr verbalizes understanding. DC Plan: [facility] vs [facility] Date Signed: 02/18/2017 03:56 PM Electronically Signed By:Stella Birmingham RN [facility] Progress Note CM Note CM Note Notes: Spoke with Kyree from [facility]. They are facilating over patient's ability to meet criteria to their SNF as she would be placed as a room mate. Kyree states a site visit would be required. The patient has met criteria for dc since yesterday. Spoke with daughter to inform her patient is stable and ready to dc per her medical condition. She will continue to pursue other facility options independently. She askes that we call with a dc time so she can meet her mother over at [facility]. CM available if other needs arise. Date Signed: 02/19/2017 01:44 PM Electronically Signed By:Ana Muller RN [facility] CM Progress Note CM Note CM Note Notes: Patient medically ready for discharge. She will return to [facility]. Denisse at has made stretcher transport arrangements for the pt. Spoke with Jesenia her daughter and she will try to meet them on arrival. All orders sent via [employer]. to follow. Date Signed: 02/19/2017 02:48 PM Electronically Signed By:Ana Muller RN Intervention Information
== END 2017-02-19 15:59 | DRG 682 ==
LOC: EDUNIT# → F3N 23:15
PROVIDERS: ADMIT Internal Medicine; ATTEND Internal Medicine
DX: N17.9 Acute kidney failure, unspecified (principal); G93.40 Encephalopathy, unspecified; N39.0 Urinary tract infection, site not specified; F03.90 Unspecified dementia, unspecified severity, without behavioral disturbance, psychotic disturbance, mood disturbance, and anxiety; I48.2 Chronic atrial fibrillation; I10 Essential (primary) hypertension; E11.9 Type 2 diabetes mellitus without complications; G24.01 Drug induced subacute dyskinesia; I95.9 Hypotension, unspecified; Z66 Do not resuscitate; Z90.5 Acquired absence of kidney
CPT/HCPCS: 82947-QW; 92526-GN; 92610-GN; 96365; 97116-GP; 97161-GP; 97165-GO; 97535-GO; G8978-GP-CM; G8979-GP-CL; G8987-GO-CM; G8988-GO-CK; G8996-GN-CI; G8997-GN-CI; G8998-GN-CH; J0696; J1815; J2060

== ENCOUNTER 2017-09-18 13:56 | Observation (INO) | payer OTHER, MEDICAID ==
[2017-09-18] MEDS ORDERED: AZITHROMYCIN IV 500 MG in D5W 250 ML IV ONE (14:03)
[2017-09-18] MEDS ORDERED: NS 1,000 ML IV ONE ×2 (14:03→15:21)
[2017-09-18] MEDS ORDERED: INSULIN REGULAR HUMAN 100 UNIT/ML UNIT IVP ONE (14:08)
[2017-09-18 14:14] LABS: PLATELET COUNT 289 10^3/uL (150-400)
--- NOTE | 2017-09-18 14:15 | CPEKG ---
Heart Rate: 86 RR Interval: 698 P-R Interval: 208 QRSD Interval: 90 QT Interval: 424 QTC Interval: 508 P [place]: -65 QRS [place]: 12 T Wave [place]: 86 EKG Severity - ABNORMAL ECG - EKG Impression: SINUS OR ECTOPIC ATRIAL RHYTHM EKG Impression: PROBABLE LEFT VENTRICULAR HYPERTROPHY Electronically Signed By: Reji Olguin 18-Sep-2017 14:18:43
--- NOTE | 2017-09-18 14:17 | EDPHY ---
H & P Stated Complaint: choked was apneic now resolved. Source: Patient Exam Limitations: No limitations - Personal History Current Tetanus/Diphtheria Vaccine: Unsure Current Tetanus Diphtheria and Acellular Pertussis (TDAP): Unsure - Medical/Surgical History Hx Asthma: No Hx Chronic Respiratory Disease: No Hx Diabetes: No Hx Cardiac Disease: No Hx Renal Disease: No Hx Cirrhosis: No Hx Alcoholism: No Hx HIV/AIDS: No Hx Splenectomy or Spleen Trauma: No Other PMH: PNA, ABDOMINAL HERNAI/SURGERY, type 2 diabetes,DEMENTia,copd,high chol, hypothyroid,insomnia, freq falls, 1 kidney - Family History Significant Family History: No pertinent family hx - Social History Smoking Status: Former smoker Alcohol Use: Sober Drug Use: None Time Seen by Provider: 09/18/17 13:58 HPI/ROS: CHIEF COMPLAINT: Choking episode HISTORY OF PRESENT ILLNESS: Patient is a 76-year-old female who arrives from [facility] after choking episode. She has history of dementia with violent outbursts and is DNR comfort care only. Paramedics were called said that she was apneic when they arrived and performed finger sweep and then removed a piece of sandwich from her throat with Brannon forceps. She then woke up and has since been acting normally. No difficulty breathing. Dr. Alicea from [facility] called and said that she had trouble choking recently it is not clear how many times. He requested that we make sure her airway is clear and then she can be released back to the intermediate. He requests that if she does have signs of aspiration pneumonia that we start antibiotics and they can continue them there. REVIEW OF SYSTEMS: Constitutional: denies: chills, fever, recent illness, recent injury EENTM: denies: blurred vision, double vision, nose congestion Respiratory: See HPI Cardiac: denies: chest pain, irregular heart rate, lightheadedness, palpitations Gastrointestinal/Abdominal: denies: abdominal pain, diarrhea, nausea, vomiting, blood streaked stools Genitourinary: denies: dysuria, frequency, hematuria, pain Musculoskeletal: denies: joint pain, muscle pain Skin: denies: lesions, rash, jaundice, bruising Neurological: denies: headache, numbness, paresthesia, tingling, dizziness, weakness Hematologic/Lymphatic: denies: blood clots, easy bleeding, easy bruising Immunologic/allergic: denies: HIV/AIDS, transplant EXAM: GENERAL: Well-appearing, well-nourished and in no acute distress. HEAD: Atraumatic, normocephalic. EYES: Pupils equal round and reactive to light, extraocular movements intact, sclera anicteric, conjunctiva are normal. ENT: TMs normal, nares patent, oropharynx clear without exudates. Moist mucous membranes. NECK: Normal range of motion, supple without lymphadenopathy or JVD. LUNGS: Right lower lobe rhonchi, no wheezes HEART: Regular rate and rhythm without murmurs, rubs or gallops. ABDOMEN: Soft, nontender, normoactive bowel sounds. No guarding, no rebound. No masses appreciated. BACK: No CVA tenderness, no spinal tenderness, step-offs or deformities EXTREMITIES: Normal range of motion, no pitting or edema. No clubbing or cyanosis. NEUROLOGICAL: Cranial nerves II through XII grossly intact. Normal speech, normal gait. 5/5 strength, normal movement in all extremities, normal sensation PSYCH: Normal mood, normal affect. SKIN: Warm, dry, normal turgor, no visible rashes or lesions. (Reji Olguin) Constitutional: Initial Vital Signs Temperature (C) 36.5 C 09/18/17 14:03 Heart Rate 82 09/18/17 14:03 Respiratory Rate 18 09/18/17 14:03 Blood Pressure 148/102 H 09/18/17 14:03 O2 Sat (%) 24 L 09/18/17 14:03 O2 Delivery Mode Room Air Allergies/Adverse Reactions: propoxyphene Allergy (Verified 06/30/16 15:07) quetiapine [From Seroquel] Allergy (Verified 02/15/17 16:27) Home Medications: Medication Instructions Recorded Acetaminophen [Tylenol ES 500 mg 500 mg PO Q6 PRN 06/21/16 (*)] Acetaminophen [Tylenol ES 500 mg 500 mg PO TID 06/21/16 (*)] Citalopram Hydrobromide 20 mg PO DAILY 06/21/16 [Citalopram HBr] Levothyroxine [Synthroid 50 mcg 50 mcg PO DAILY@08 06/21/16 (*)] Sennosides/Docusate Sodium 1 each PO BID 06/21/16 [Senokot-S] Apixaban [Eliquis] 5 mg PO BID #0 tab 06/25/16 Polyethylene Glycol 3350 [Miralax 17 gm PO HS 02/15/17 17 gm (*)] Hydrocodone/Acetaminophen 0.5 tab PO QID 09/18/17 [Hydrocodone-Acetamin 5-325 mg] OLANZapine [Olanzapine] 2.5 mg PO HS 09/18/17 clonazePAM [Klonopin (*)] 0.25 mg PO BID 09/18/17 clonazePAM [Klonopin (*)] 0.5 mg PO DAILY PRN 09/18/17 Medical Decision Making - Diagnostics Imaging: Discussed imaging studies w/ inweaver Radiologist - Diagnostics EKG Interpretation: An EKG obtained and was read and documented in trace view. Please see trace view for full reading and report. Sinus rhythm, no acute ischemic changes ( Reji Olguin) ED Course/Re-evaluation: The patient is saturating 96% on room air. She is drinking well. Will give her potassium orally. I did give her insulin for her significantly elevated glucose. Will recheck her chemistry. Her daughter somewhat angry that she was sent here because she is DNR. We also spoke with nursing staff a intermediate who states that she eats too fast and occasionally chokes. The last time this happened was about a week ago. She only eats when monitor because of this. 3:00 p.m. I spoke with the daughter. After much discussion we agreed to admit the hospital while we try to manage her hyperglycemia and mild acidosis. Also her lactate came back elevated. Her chest x-ray is reassuring and so her oxygen saturations but she has an elevated lactate and white blood cell count. I have started antibiotics. We will give her the fluid bolus. 3:10 p.m. we discussed the case with Dr. Consuelo Parikh who will admit the medical service. (Reji Olguin) Differential Diagnosis: Partial list of the Differential diagnosis considered include but were not limited to; aspiration, choking episode, pneumonia and although unlikely based on the history and physical exam, I also considered pneumothorax, acute coronary disease, sepsis, perforation. (Reji Olguin) Critical Care Time: Critical care time spent by me, Dr. Olguin exclusive with this patient was 35 minutes, exclusive of the PA time exclusive of procedures. The organ system that was at risk was pulmonary and I gave IV medications, consultation with family and doctors and admission to prevent worsening of the patient's condition (Reji Olguin) Other Provider: Patient is awaiting admission to the floor for sepsis related to aspiration event. After reviewing chart and laboratory results, I believe this patient is in DKA rather than septic. Repeat chemistries show anion gap 24, CO2 14, BGL 567, which is consistent with DKA. I have initiated DKA treatments. Doubt aspiration pneumonitis this quickly following reported choking event. Discussed with admitting hospitalist, Dr. Parikh. (Al Barber) - Data Points Laboratory Results: Laboratory Results 09/18/17 14:10 09/18/17 14:10 Medications Given: Hydrocodone Bitart/Acetaminophen (Weldon 5/325) 0.5 tab PO QID SHANIQUE Stop: 09/28/17 20:59 Last Admin: 09/19/17 05:46 Dose: 0.5 tab Apixaban (Eliquis) 5 mg PO BID SHANIQUE Stop: 03/17/18 20:59 Last Admin: 09/18/17 20:26 Dose: 5 mg Clonazepam (Klonopin) 0.25 mg PO BID SHANIQUE Stop: 03/17/18 20:59 Last Admin: 09/18/17 20:26 Dose: 0.25 mg Sodium Chloride (Ns) 1,000 mls @ 100 mls/hr IV CONT SHANIQUE Stop: 03/17/18 16:14 Last Admin: 09/19/17 05:46 Dose: 1,000 mls Insulin Human Lispro (Humalog Lispro) 0 unit SC TIDMEAL SHANIQUE PRN Reason: Protocol Stop: 03/17/18 17:59 Last Admin: 09/18/17 20:54 Dose: 4 units Olanzapine (Zyprexa) 2.5 mg PO HS SHANIQUE Stop: 03/17/18 20:59 Last Admin: 09/18/17 20:26 Dose: 2.5 mg Polyethylene Glycol (Miralax) 17 gm PO HS SHANIQUE Stop: 03/17/18 20:59 Last Admin: 09/18/17 20:26 Dose: 17 gm Senna/Docusate Sodium (Senokot-S) 1 tab PO BID SHANIQUE Stop: 03/17/18 20:59 Last Admin: 09/18/17 20:26 Dose: 1 tab Discontinued Medications Azithromycin 500 mg/ Dextrose 255 mls @ 255 mls/hr IV EDNOW ONE PRN Reason: Protocol Stop: 09/18/17 15:02 Last Admin: 09/18/17 15:15 Dose: 255 mls Ceftriaxone Sodium/Dextrose (Rocephin 1 Gm (Premix)) 50 mls @ 100 mls/hr IV EDNOW ONE PRN Reason: Protocol Stop: 09/18/17 14:32 Last Admin: 09/18/17 15:04 Dose: 50 mls Sodium Chloride (Ns) 1,000 mls @ 0 mls/hr IV ONCE ONE; Wide Open PRN Reason: Protocol Stop: 09/18/17 14:04 Last Admin: 09/18/17 14:38 Dose: 1,000 mls Potassium Chloride (Potassium Cl 10 Meq (Premix)) 100 mls @ 200 mls/hr IV Q30M SHANIQUE Stop: 09/18/17 15:29 Last Admin: 09/18/17 17:29 Dose: Not Given Potassium Chloride 10 meq/ (Sodium Chloride) 100 mls @ 100 mls/hr IV Q1H SHANIQUE Stop: 03/17/18 14:29 Last Admin: 09/18/17 17:01 Dose: Not Given Sodium Chloride (Ns) 2,600 mls @ 5,200 mls/hr 30 ml/kg infuse over 30 min ( 2600 ml) IV EDNOW ONE PRN Reason: Protocol Stop: 09/18/17 15:28 Last Admin: 09/18/17 15:07 Dose: 2,600 mls Sodium Chloride (Ns) 1,000 mls @ 1,000 mls/hr IV EDNOW ONE PRN Reason: Protocol Stop: 09/18/17 16:20 Last Admin: 09/18/17 15:29 Dose: Not Given Insulin Human Regular 100 unit / Miscellaneous Medication 1 ea/ Sodium Chloride 101 mls @ 0 mls/hr IV EDNOW ONE; Per Protocol PRN Reason: Protocol Stop: 09/18/17 15:22 Last Admin: 09/18/17 16:56 Dose: Not Given Potassium Chloride (Potassium Cl 10 Meq (Premix)) 100 mls @ 200 mls/hr IV Q30M SHANIQUE Stop: 09/18/17 16:29 Last Admin: 09/18/17 16:56 Dose: Not Given Insulin Human Regular (Humulin R) 10 unit IVP EDNOW ONE Stop: 09/18/17 14:09 Last Admin: 09/18/17 14:38 Dose: 10 units Lorazepam (Ativan Injection) 1 mg IVP EDNOW ONE Stop: 09/18/17 16:46 Last Admin: 09/18/17 16:55 Dose: 1 mg Potassium Chloride (Klor Packets) 20 meq PO EDNOW ONE Stop: 09/18/17 14:56 Last Admin: 09/18/17 15:04 Dose: 20 meq Point of Care Test Results: Chemistry 09/18/17 14:03 POC Sodium 137 mEq/L mEq/L (135-145) POC Potassium 3.7 mEq/L mEq/L (3.3-5.0) POC Chloride 103 mEq/L mEq/L (97-110) POC BUN 28 mg/dL H mg/dL (7-23) POC Creatinine 0.9 mg/dL mg/dL (0.6-1.0) POC Glucose 565 mg/dL H* mg/dL (70-100) ISTAT H&H 09/18/17 14:03 POC Hgb 15.0 gm/dL gm/dL (12.6-16.3) POC Hct 44 % % (38-47) Departure - Departure Disposition: [facility] Acute Clinical Impression: Choking episode, Acute hyperglycemia DKA (diabetic ketoacidoses) Qualifiers: Diabetes mellitus type: type 2 Diabetes mellitus complication detail: without coma Qualified Code(s): E11.10 - Type 2 diabetes mellitus with ketoacidosis without coma Condition: Fair
[2017-09-18] MEDS ORDERED: POTASSIUM Cl (KCl) 100 ML IV SCH (14:30)
[2017-09-18 14:40] LABS: INR 1.21 (0.83-1.16); PROTIME(PATIENT) 15.5 SEC (12.0-15.0)
[2017-09-18] MEDS ORDERED: POTASSIUM CL 20 MEQ PKT ONE (14:46)
[2017-09-18] MEDS ORDERED: POTASSIUM CL 20 MEQ PKT PO ONE (14:55)
[2017-09-18] MEDS ORDERED: NS 2,600 ML IV ONE (14:59)
[2017-09-18] MEDS ORDERED: ONDANSETRON 4 MG/2 ML VIAL IVP PRN (15:07)
[2017-09-18] MEDS ORDERED: ACETAMINOPHEN 325 MG TAB PO PRN (15:07)
[2017-09-18] MEDS ORDERED: ONDANSETRON DISINTEGRATING 4 MG TAB PO PRN (15:07)
[2017-09-18] MEDS ORDERED: INSULIN REGULAR HUMAN 100 UNIT, COSIGN. REQUIRED 1 EA in NS 100 ML IV ONE (15:21)
[2017-09-18] MEDS ORDERED: D50W 25 GM/50 ML SYR IVP PRN (15:33)
[2017-09-18] MEDS ORDERED: LORazepam 2 MG/ML INJ IVP ONE (16:45)
[2017-09-18] MEDS: POTASSIUM Cl (KCl) 100 ML IV SCH (16:56)
[2017-09-18] MEDS: POTASSIUM Cl (KCl) 10 MEQ in NS 100 ML IV SCH ×2 (16:58→17:01)
--- NOTE | 2017-09-18 17:02 | GHP ---
[f rep st] HISTORY AND PHYSICAL DATE OF ADMISSION: 09/18/2017 CHIEF COMPLAINT: Choking, hyperglycemia. HISTORY OF PRESENT ILLNESS: A 76-year-old female with severe dementia arrived from [facility] after choking on a sandwich. Paramedics said that she was apneic when they arrived. They performed a finger sweep and removed piece of sandwich. She woke up and then has been acting normally. No difficulty breathing. The doctor at the alf said that she has been having choking recently, not clear how many times. In the emergency room, she was found to be hyperglycemic with greater than 500 with an anion gap. Dr. Cardenas talked with family in [place], and they confirmed that she is DNR, which matches her MOLST form. They would like noninvasive treatment, including fluids and antibiotics. REVIEW OF SYSTEMS: This is completed through [facility] as patient cannot participate in exam due to chronic encephalopathy. PAST MEDICAL HISTORY: 1. Chronic encephalopathy secondary to severe dementia. 2. Hypothyroidism. 3. A solitary kidney. 4. Permanent atrial fibrillation. PAST SURGICAL HISTORY: Left nephrectomy. SOCIAL HISTORY: Lives at [facility]. FAMILY HISTORY: Noncontributory. HOME MEDICATIONS: Metformin 1000 mg twice daily, Spiriva, senna, MiraLAX, Zyprexa 10 mg daily, metoprolol 12.5 daily, Hiprex 1 g twice daily, Namenda 10 mg twice daily, lisinopril 10 mg daily, Tradjenta 5 mg p.o. daily, Synthroid 50 mcg daily, herbal supplements, citalopram 20 mg daily, vitamin D3, Cogentin, vitamin C, Eliquis 5 mg twice daily, Tylenol as needed. ALLERGIES: Propoxyphene, quetiapine. PHYSICAL EXAMINATION: VITAL SIGNS: Temperature 36.5, blood pressure is 133/85 , heart rates in the 70s, respiration 21, 93% on room air. GENERAL: Unkempt, agitated, restless in bed. HEENT: PERRLA. Dry mucous membranes. Poor assisted. CV: Regular rate and rhythm. LUNGS: Clear anteriorly. GI: Patient would not let me examine her abdomen. She does have a surgical scar. LOWER EXTREMITIES: No overt erythema or ulcerations. NEURO: She will not participate in exam. She is agitated. PSYCH: She is alert, screaming profanities. LABORATORIES: 1. WBCs 15, Hb 13, hematocrit 43, platelets 289. INR is 1.2. Lactate is 4.6. Sodium 141, potassium 3.6, chloride 107, BUN 28, creatinine 0.7. Glucose was 565, repeat is 259, calcium 8.4, mag 1.4, total protein is 5.6. 2. Chest x-ray personally reviewed by me. No evidence of pneumonia. 3. EKG personally reviewed by me. Normal sinus rhythm. ASSESSMENT: 1. Apneic episode: from choking incident. She is stable on room air. There is no evidence of infection. She may have some pneumonitis but is stable on room air. 2. Hyperglycemia: improved quickly with insulin and fluids in the ER.. Repeat sugar is 259. SSI. 3. Anion gap metabolic acidosis: Gap was 24. This resolved quickly with fluids and insulin. 4. Hypothyroidism: Synthroid. 5. Permanent atrial fibrillation: Resume beta kristie, Eliquis, as she is in normal sinus rhythm. 6. Leukocytosis secondary to dehydration: She is afebrile here. No evidence of pneumonia. 7. Advanced dementia: Known aggressive behavior. We will resume home medications. 8. Lactic acidosis: Secondary to acute ketosis and dehydration. Resuscitate. Repeat lactates this evening. 9. Diet: Diabetic. 10. Deep venous thrombosis prophylaxis: Lovenox. DISPOSITION: Patient warrants observation admission for IV hydration, monitoring glucose. Can likely discharge back to [facility] tomorrow morning. /[id number]/MODL MTDD
[2017-09-18] MEDS ORDERED: clonazePAM 0.5 MG TAB PO PRN (18:59)
[2017-09-18] MEDS ORDERED: D50W 25 GM/50 ML VIAL IVP PRN (19:30)
[2017-09-18] MEDS: APIXABAN 5 MG TAB PO SCH (20:26)
[2017-09-18] MEDS: NS 1,000 ML IV SCH (20:26)
[2017-09-18] MEDS: SENNOSIDES/DOCUSATE SODIUM TAB PO SCH (20:26)
[2017-09-18] MEDS: clonazePAM 0.5 MG TAB PO SCH (20:26)
[2017-09-18] MEDS: HYDROCODONE/APAP 5/325 TAB PO SCH (20:27)
[2017-09-18] MEDS: INSULIN LISPRO 100 UNIT/ML SC SCH (20:54)
[2017-09-18] MEDS ORDERED: OLANZapine 2.5 MG TAB PO SCH (21:00)
[2017-09-18] MEDS ORDERED: POLYETHYLENE GLYCOL 3350 17 GM PKT PO SCH (21:00)
[2017-09-19] MEDS: HYDROCODONE/APAP 5/325 TAB PO SCH ×2 (05:46→12:21)
[2017-09-19] MEDS: NS 1,000 ML IV SCH (05:46)
[2017-09-19] MEDS ORDERED: LEVOTHYROXINE 50 MCG TAB PO SCH (08:00)
[2017-09-19] MEDS: INSULIN LISPRO 100 UNIT/ML SC SCH ×2 (08:19→12:21)
[2017-09-19] MEDS ORDERED: CITALOPRAM 20 MG TAB PO SCH (09:00)
[2017-09-19] MEDS: clonazePAM 0.5 MG TAB PO SCH (09:30)
[2017-09-19] MEDS: APIXABAN 5 MG TAB PO SCH (09:30)
[2017-09-19] MEDS: SENNOSIDES/DOCUSATE SODIUM TAB PO SCH (09:30)
[2017-09-19] MEDS ORDERED: INSULIN GLARGINE 100 UNITS/ML UNIT SC SCH (14:45)
[2017-09-19 15:21] VITALS: BP 139/77
[2017-09-19 15:37] LABS: PLATELET COUNT 218 10^3/uL (150-400)
--- NOTE | 2017-09-19 15:48 | PDIAF ---
- Diagnosis Diagnosis: choking episode Code Status: Do Not Resuscitate - Medication Management Discharge Medications: Medications to Continue on Transfer Acetaminophen [Tylenol ES 500 mg (*)] 500 mg PO Q6 PRN 06/21/16 [Last Taken 00:21] Acetaminophen [Tylenol ES 500 mg (*)] 500 mg PO TID 06/21/16 [Last Taken 14:00] Citalopram Hydrobromide [Citalopram HBr] 20 mg PO DAILY 06/21/16 [Last Taken ] Levothyroxine [Synthroid 50 mcg (*)] 50 mcg PO DAILY@08 06/21/16 [Last Taken ] Sennosides/Docusate Sodium [Senokot-S] 1 each PO BID 06/21/16 [Last Taken ] Apixaban [Eliquis] 5 mg PO BID #0 tab 06/25/16 [Last Taken 09/18/17] Polyethylene Glycol 3350 [Miralax 17 gm (*)] 17 gm PO HS 02/15/17 [Last Taken ] Hydrocodone/Acetaminophen [Hydrocodone-Acetamin 5-325 mg] 0.5 tab PO QID [Last Taken 09/18/17 12:00] OLANZapine [Olanzapine] 2.5 mg PO HS 09/18/17 [Last Taken 09/16/17] clonazePAM [Klonopin (*)] 0.25 mg PO BID 09/18/17 [Last Taken Unknown] clonazePAM [Klonopin (*)] 0.5 mg PO DAILY PRN 09/18/17 [Last Taken Unknown] Insulin Glargine [Lantus Syringe] 10 units SC DAILY #10 unit 09/19/17 [Last Taken Unknown] Discharge Medications: Refer to the Discharge Home Medication list for PRN reason. - Orders Diet Texture: Regular Texture Diet, Thin Liquids, Meds Whole in Puree Additional Instructions: Palliative care consultation - Follow Up Care Current Providers and Referrals: NONE *PRIMARY CARE P,. [Primary Care Provider] - As per Instructions
--- NOTE | 2017-09-19 15:55 | ASMTCMCOM ---
CM Note CM Note Notes: Pt admitted after choking incident at [facility] where pt lives. She has severe dementia, her daughter is MDPOA. Speech therapist d/w the evaluation with pt's daughter. MD called pt's dtr to discuss poc and she would like her mother to go back to [facility], she does not want further treatment. Would like out pt palliative consult. CM notified Denisse at , to arrange for stretcher pickler helper. DC Plan: [facility]/ [facility] Date Signed: 09/19/2017 03:54 PM Electronically Signed By:Stella Birmingham RN
--- NOTE | 2017-09-19 16:22 | ASMTDCNOTE ---
Case Management Discharge Discharge Order Complete? Answers: Yes Patient to Obtain Answers: Other Notes: [place] Medications Transportation Arranged Answers: [facility] Stretcher Transport will Pick (Date 09/19/2017 04:45 AM & Time) Case Management Transport Answers: Yes Form Complete Faxed Final Orders Answers: Yes Agency/Facility Transfer Answers: Yes Report Printed & Faxed to Receiving Agency Family Notified Answers: Yes Discharge Comments Notes: D/w MD, final orders faxed. Denisse chambers notified and faxed [employer] and hard copy to [phone]. RN to call report. Date Signed: 09/19/2017 04:22 PM Electronically Signed By:Stella Birmingham RN
--- NOTE | 2017-09-19 17:21 | ASDISCHSUM ---
Discharge Information Plan Status:SNF Medically Cleared to Leave: Discharge Date:09/19/2017 05:05 PM D/C Disposition:Long Term Facility ADT D/C Disposition:Long Term Facility Projected Discharge Date:09/19/2017 11:00 AM Transportation at D/C:ALS/BLS Discharge Delay Reason: Follow-Up Date:09/19/2017 11:00 AM Discharge Slot: Final Diagnosis: Placement Information Referral Type:Palliative Care Referral ID:-[id number] Provider Name:[facility] Address 1:[address] Phone Number: Address 2: Fax Number: [facility]:[place] Selection Factors: State:[place] Referral Type:*Long Term/SNF Referral ID:[id number] Provider Name:[facility] Address 1:[address] [facility] Phone Number: Address 2: Fax Number: [facility]:[place] Selection Factors: State:[place] Patient Contact Information Contact Name:SHAKEEL Relationship:Daughter Address: Work Phone: City: [facility] Phone: State/Zip Code: Email: Financial Information Financial Class:Medicare Primary Plan Desc:MEDICARE OUTPATIENT Primary Plan Number:[id number] Secondary Plan Desc:MEDICAID [place] Secondary Plan Number:[id number] Assessment Information [facility] Progress Note CM Note MARU Note Notes: Pt admitted after choking incident at [facility] where pt lives. She has severe dementia, her daughter is MDPOA. Speech therapist d/w the evaluation with pt's daughter. called pt's dtr to discuss poc and she would like her mother to go back to [facility], she does not want further treatment. Would like out pt palliative consult. MARU notified Denisse at [facility] to arrange for stretcher grape picker. DC Plan: [facility]/ [facility] Palliative Date Signed: 09/19/2017 03:54 PM Electronically Signed By:Stella Birmingham RN Case Management Discharge Plan Note Case Management Discharge Discharge Order Complete? Answers: Yes Patient to Obtain Answers: Other Notes: [place] [facility] Transportation Arranged Answers: [facility] Stretcher Transport will Pick (Date 09/19/2017 04:45 AM & Time) Case Management Transport Answers: Yes Form Complete Faxed Final Orders Answers: Yes Agency/Facility Transfer Answers: Yes Report Printed & Faxed to Receiving Agency Family Notified Answers: Yes Discharge Comments Notes: D/w , final orders faxed. Denisse chambers notified and faxed [employer] and hard copy to [phone]. NADIR to call report. Date Signed: 09/19/2017 04:22 PM Electronically Signed By:Stella Birmingham RN Intervention Information
--- NOTE | 2017-09-19 19:28 | GDS ---
[f rep st] DISCHARGE SUMMARY DISCHARGE DIAGNOSES: 1. Aspiration event. 2. Acute respiratory failure. 3. Lactic acid elevation. 4. Advanced dementia. 5. Known dysphagia. 6. Atrial fibrillation. HISTORY: The patient is a 76-year-old female with severe dementia who was sent from [facility] ter choking on a sandwich. She was apneic on arrival. They did a finger sweep and removed a piece o f sandwich. She subsequently woke up and acted normally. She did not have any subsequent cough or b reathing difficulties. She has a history of choking frequently when [facility] at the [facility]. She does have a MOLST form that says comfort measures only. I spoke with her daughter who is her decisi on maker. She does not want her to be hospitalized and get anymore antibiotics. She was, however, u nprepared to have her mother pass away from an acute choking episode and was somewhat distressed rega rding the possibility that she may have not received treatment for this event. [facility] counseled regarding end-of-life and comfort measures and the fact that choking episodes such as this are likely to occur again, and a plan with [facility] should be discussed for future events. The daughter was very clear about her not wanting her mother to receive any further antibiotic hemanth tment. So antibiotics were discontinued. I do not think the patient developed an aspiration pneumon ia. I think it was just an acute choking event. The daughter does not want her mother to be rehospi talized. She will be transferred back to [facility] today. She will meet with [facility] to clarify goals of care. I am recommending palliative care consultation upon arrival back to [facility] to help the daughter navigate these difficult decisions. I do think enrolling in a hospice service would be appropriate and perhaps with some education come up with a plan if these acute episo juan were to happen again. DISCHARGE MEDICATIONS: Please see computerized record for full detailed list. NEW MEDICATIONS: The patient's daughter does desire her to be on some insulin for her diabetes which is uncontrolled. I did start Lantus 10 units subcu daily. ADDITIONAL DISCHARGE INSTRUCTIONS: Palliative care consultation and consideration for enrolling in h ospice service once goals of care are clarified with daughter. Greater than 30 minutes' time was spent arranging this discharge. Patient was seen and examined by amber rodriguez on the day of discharge. /[id number]/MODL
== END 2017-09-19 17:05 ==
LOC: EDUNIT# → F3E 18:54
PROVIDERS: ADMIT Internal Medicine; ATTEND Internal Medicine
DX: T17.420A Food in trachea causing asphyxiation, initial encounter (principal); J96.00 Acute respiratory failure, unspecified whether with hypoxia or hypercapnia; R74.0 Nonspecific elevation of levels of transaminase and lactic acid dehydrogenase [LDH]; F03.90 Unspecified dementia, unspecified severity, without behavioral disturbance, psychotic disturbance, mood disturbance, and anxiety; R13.10 Dysphagia, unspecified; I48.91 Unspecified atrial fibrillation; E11.9 Type 2 diabetes mellitus without complications; E03.9 Hypothyroidism, unspecified; J44.9 Chronic obstructive pulmonary disease, unspecified; E78.00 Pure hypercholesterolemia, unspecified; Y92.129 Unspecified place in nursing home as the place of occurrence of the external cause; Z87.891 Personal history of nicotine dependence; Z91.81 History of falling
CPT/HCPCS: 71046; 92610; 93005; 96374; 96375; 99291; G0378; G8996; G8997; G8998; J0456; J0696; J1815; J2060; 82435-PO; 82565-PO; 82947-PO; 84132-PO; 84295-PO; 84520-PO; 85014-PO; J3480

== ENCOUNTER 2018-07-08 10:45 | Inpatient (IN) | payer OTHER, MEDICAID ==
[2018-07-08 11:27] LABS: PLATELET COUNT 277 10^3/uL (150-400)
[2018-07-08] MEDS ORDERED: NS 2,200 ML IV ONE (11:43)
[2018-07-08] MEDS ORDERED: INSULIN REGULAR HUMAN 100 UNIT/ML UNIT IVP ONE (11:44)
[2018-07-08] MEDS ORDERED: ONDANSETRON 4 MG/2 ML VIAL IVP PRN (13:58)
[2018-07-08] MEDS ORDERED: ONDANSETRON DISINTEGRATING 4 MG TAB PO PRN (13:58)
[2018-07-08] MEDS ORDERED: ACETAMINOPHEN 325 MG TAB PO PRN (13:58)
[2018-07-08] MEDS ORDERED: D50W 25 GM/50 ML SYR IVP PRN (14:03)
[2018-07-08] MEDS ORDERED: POLYETHYLENE GLYCOL 3350 17 GM PKT PO PRN (14:09)
[2018-07-08] MEDS ORDERED: IOPAMIDOL (ISOVUE-300) 100 ML BTL ONE (14:09)
[2018-07-08] MEDS ORDERED: SENNOSIDES 1 TAB PO PRN (14:09)
--- NOTE | 2018-07-08 14:10 | HOSPPROG ---
Hospitalist Progress Note Assessment/Plan: patient seen/examined/discussed w SHOE REPAIRER APPRENTICE Chemo. 77 yo F dementia here w agiated delirium (toxic/metabolic encephalopathy) as well as fever, broken tooth, pyuria , sepsis (fever, source, elevated lactate) 1. not clearly uti 2. ct face w OMFS consult and change abx to unasyn 3. abd film 4. IVF for sepsis 5. treat hyperglycemia 6. DNR Objective: Vital Signs Temp Pulse Resp BP Pulse Ox 37.2 C 105 H 20 130/108 H 93 07/08/18 13:52 07/08/18 13:52 07/08/18 13:52 07/08/18 13:52 07/08/18 13:52 07/07/18 07/08/18 07/09/18 05:59 05:59 05:59 Intake Total 2300 Balance 2300 ICD10 Worksheet Patient Problems: Problems Problem Status Onset Acute hyperglycemia Acute Altered mental status Acute Choking episode Acute DKA (diabetic ketoacidoses) Acute Dehydration Acute Delirium Acute Dementia Acute Failure to thrive Acute Palliative care encounter Acute Pneumonia Acute Sepsis Acute UTI (urinary tract infection) Acute
--- NOTE | 2018-07-08 14:21 | PDGENHP ---
History and Physical - Chief Complaint Sepsis, hyperglycemia - History of Present Illness 77-year-old severely demented at baseline female presenting in acute delirium with suspected urinary tract infection as well as possible oral infection and sepsis. She has a history of chronic encephalopathy due to her severe dementia , hypothyroidism, and atrial fibrillation to which she is on Eliquis. She lives at [facility] in [facility] and presented via EMS blood sugar 489 in route, in the emergency room blood sugar was 561 and was given 10 insulin units IV push. Lactic acid was 2.9 she was given 2.2 L bolus over 30 min and urinalysis was performed indicating possible urinary tract infection; she was given ceftriaxone in the emergency room. This is my 1st encounter with the patient, my 1st time reviewing her past medical history: Daughter was at bedside with the patient, reports the patient is typically not as vocal as she was today as far as "babbling" and fidgety more so than usual. Typically she is alert and oriented x1 and mostly quiet. She also reports a cap on her tooth to have fallen off approximately 6-8 weeks ago and has not had the opportunity to repair this. The patient has blood-stained oral cavity; unsure if this is the source of infection and have notified oral surgery for input. She is being admitted for further work-up, treatment and monitoring. History Information - Allergies/Home Medication List Allergies/Adverse Reactions: propoxyphene Allergy (Verified 07/08/18 11:08) quetiapine [From Seroquel] Allergy (Verified 07/08/18 11:08) Home Medications: Acetaminophen [Tylenol ES 500 mg (*)] 500 mg PO Q6 PRN 06/21/16 [Last Taken 00:21] Acetaminophen [Tylenol ES 500 mg (*)] 500 mg PO TID 06/21/16 [Last Taken 14:00] Citalopram Hydrobromide [Citalopram HBr] 20 mg PO DAILY 06/21/16 [Last Taken ] Levothyroxine [Synthroid 50 mcg (*)] 50 mcg PO DAILY@08 06/21/16 [Last Taken ] Sennosides/Docusate Sodium [Senokot-S] 1 each PO DAILY 06/21/16 [Last Taken ] Polyethylene Glycol 3350 [Miralax 17 gm (*)] 17 gm PO DAILY PRN 02/15/17 [Last Taken 09/17/17] clonazePAM [Klonopin (*)] 0.25 mg PO TID 09/18/17 [Last Taken Unknown] Cholecalciferol Vit D3 [Vitamin D3 (*)] 50,000 unit PO FR 07/08/18 [Last Taken Unknown] Insulin Glargine [Lantus Syringe] 21 units SC HS 07/08/18 [Last Taken Unknown] Phenyleph/Mineral Oil/Petrolat [Eql Hemorrhoidal Ointment] 1 cruz RC Q6HRS PRN [Last Taken Unknown] Sennosides [Senna Lax] 8.6 mg PO BID PRN 07/08/18 [Last Taken Unknown] I have personally reviewed and updated: family history, medical history, social history, surgical history - Past Medical History diabetes type 2, hypertension Additional medical history: Solitary right kidney status post left-sided nephrectomy, the patient does not have renal cell carcinoma. Permanent atrial fibrillation. Severe dementia, but able to recognize daughter at baseline, able to participate in meals at baseline - Surgical History Additional surgical history: Left-sided nephrectomy 20 years ago - Family History Additional family history: Her biologic daughter reports no underlying rheumatologic issues - Social History Smoking Status: Former smoker Alcohol Use: None Drug Use: None Additional social history: Completely dependent in her ADLs, resides at [facility], in memory unit Review of Systems Review of Systems: ROS: 10pt was reviewed & negative except for what was stated in HPI & below Physical Exam Physical Exam: Lab data and imaging were reviewed. White blood count: 15.97 w/left shift H/H: 16.3/50.1 Plt count: 277 Na: 145 K: 4.2 Cl/CO2: 110/21 BUN/Cr: 30/1.2 Glucose: 561-->291 Lactic acid: 2.9 EKG: Sinus tachycardia, left axis deviation, left ventricular hypertrophy Chest x-ray: Clear lungs, no pneumonia or effusion Temp Pulse Resp BP Pulse Ox 37.2 C 105 H 20 130/108 H 93 07/08/18 13:52 07/08/18 13:52 07/08/18 13:52 07/08/18 13:52 07/08/18 13:52 Constitutional: uncomfortable Eyes: PERRL, anicteric sclera Ears, Nose, Mouth, Throat: ears appear normal, no oral mucosal ulcers, poor dentition, dry mucous membranes Cardiovascular: regular rate and rhythym, no murmur, rub, or gallop, tachycardia Peripheral Pulses: 1+: dorsalis-pedis (R), dorsalis-pedis (L) Respiratory: reduced air movement Gastrointestinal: other (Hypoactive bowel sounds; mesh palpated status post hernia repair) Genitourinary: no bladder fullness, no bladder tenderness Skin: warm, normal color, no rashes or abrasions, no fluctuance, no induration, No mottled Musculoskeletal: other (Unable to assess due to patient's acute metabolic encephalopathy) Neurologic: other (Unable to assess due to patient's acute metabolic encephalopathy; however she does respond by turning her head to my direction when speaking to her) Psychiatric: encephalopathic, agitated Lymph, Heme, Immunologic: no cervical LAD, no supraclavicular LAD Lab Data & Imaging Review 07/08/18 10:45 07/08/18 10:45 WBC 15.97 10^3/uL (3.80-9.50) H 07/08/18 10:45 RBC 5.90 10^6/uL (4.18-5.33) H 07/08/18 10:45 Hgb 16.3 g/dL (12.6-16.3) 07/08/18 10:45 Hct 50.1 % (38.0-47.0) H 07/08/18 10:45 MCV 84.9 fL (81.5-99.8) 07/08/18 10:45 MCH 27.6 pg (27.9-34.1) L 07/08/18 10:45 MCHC 32.5 g/dL (32.4-36.7) 07/08/18 10:45 RDW 15.1 % (11.5-15.2) 07/08/18 10:45 Plt Count 277 10^3/uL (150-400) 07/08/18 10:45 MPV 12.7 fL (8.7-11.7) H 07/08/18 10:45 Neut % (Auto) 81.8 % (39.3-74.2) H 07/08/18 10:45 Lymph % (Auto) 11.2 % (15.0-45.0) L 07/08/18 10:45 Bryan % (Auto) 5.8 % (4.5-13.0) 07/08/18 10:45 Eos % (Auto) 0.1 % (0.6-7.6) L 07/08/18 10:45 Baso % (Auto) 0.3 % (0.3-1.7) 07/08/18 10:45 Nucleat RBC Rel Count 0.0 % (0.0-0.2) 07/08/18 10:45 Absolute Neuts (auto) 13.07 10^3/uL (1.70-6.50) H 07/08/18 10:45 Absolute Lymphs (auto) 1.79 10^3/uL (1.00-3.00) 07/08/18 10:45 Absolute Monos (auto) 0.93 10^3/uL (0.30-0.80) H 07/08/18 10:45 Absolute Eos (auto) 0.01 10^3/uL (0.03-0.40) L 07/08/18 10:45 Absolute Basos (auto) 0.05 10^3/uL (0.02-0.10) 07/08/18 10:45 Absolute Nucleated RBC 0.00 10^3/uL (0-0.01) 07/08/18 10:45 Immature Gran % 0.8 % (0.0-1.1) 07/08/18 10:45 Immature Gran # 0.12 10^3/uL (0.00-0.10) H 07/08/18 10:45 VBG Lactic Acid 2.9 mmol/L (0.7-2.1) H 07/08/18 12:13 Sodium 145 mEq/L (135-145) 07/08/18 10:45 Potassium 4.2 mEq/L (3.5-5.2) 07/08/18 10:45 Chloride 110 mEq/L (97-110) 07/08/18 10:45 Carbon Dioxide 21 mEq/l (22-31) L 07/08/18 10:45 Anion Gap 14 mEq/L (6-14) 07/08/18 10:45 BUN 30 mg/dL (7-23) H 07/08/18 10:45 Creatinine 1.2 mg/dL (0.6-1.0) H 07/08/18 10:45 Estimated GFR 44 07/08/18 10:45 Glucose 561 mg/dL (70-100) H* 07/08/18 10:45 POC Glucose 291 mg/dL (70-100) H 07/08/18 13:24 Calcium 10.9 mg/dL (8.5-10.4) H 07/08/18 10:45 Phosphorus 3.5 mg/dL (2.5-4.5) 07/08/18 10:45 Urine Color YELLOW 07/08/18 12:33 Urine Appearance MODERATELY TURBID 07/08/18 12:33 Urine pH 5.0 (5.0-7.5) 07/08/18 12:33 Ur Specific [place] 1.032 (1.002-1.030) H 07/08/18 12:33 Urine Protein 2+ (NEGATIVE) H 07/08/18 12:33 Urine Ketones NEGATIVE (NEGATIVE) 07/08/18 12:33 Urine Blood 3+ (NEGATIVE) H 07/08/18 12:33 Urine Nitrate POSITIVE (NEGATIVE) H 07/08/18 12:33 Urine Bilirubin NEGATIVE (NEGATIVE) 07/08/18 12:33 Urine Urobilinogen NEGATIVE EU (0.2-1.0) 07/08/18 12:33 Ur Leukocyte Esterase 2+ (NEGATIVE) H 07/08/18 12:33 Urine RBC 1-3 /hpf (0-3) 07/08/18 12:33 Urine WBC 5-10 /hpf (0-3) H 07/08/18 12:33 Ur Epithelial Cells NONE SEEN /lpf (NONE-1+) 07/08/18 12:33 Urine Bacteria 1+ /hpf (NONE SEEN) H 07/08/18 12:33 Urine Mucus TRACE /lpf (NONE-1+) 07/08/18 12:33 Urine Glucose 3+ (NEGATIVE) H 07/08/18 12:33 Assessment & Plan Plan: 77 y/o female presenting w/agitated delirium, acute metabolic encephalopathy in no state to express or understand her condition, hyperglycemic w/possible urinary tract infection and possible oral infection. Her last set of vitals are the following: Blood pressure 129/94, heart rate 83, respirations 16, 92% on room air, 38.7c temperature axillary. #Hyperglycemia #Acute metabolic encephalopathy #Hypothyroidism #Atrial fibrillation #Urinary tract infection #Sepsis Plan: -BS presenting was 561, received insulin IVP, rechecked BS 291. Insulin sliding scale in house, glucose checks TID before meals and cont home glargine -Acute metabolic encephalopathy on chronic encephalopathy suspected to fever and possible oral and/or urinary infection. Treated w/Rocephin in ED; will treat w/Unasyn moving forward to cover anaerobes. Maxillofacial CT w/IV contrast to evaluate possible source of infection; consulted oral surgery and spoke to Dr. Jas Zaidi who will evaluate the pt later tonight after reviewing CT scan. -TSH pending; cont L4T for now -UPSTAIRS MAID to consult; hx of aspiration therefore will need to pass RN swallow test and then 1:1 assistance eating -PT/OT to evaluate and treat -Tylenol AL available for fever -Cont IVF x 3; rechecking lactic acid later tonight -Urine and blood culture pending; respiratory panel negative -Abdominal Xray pending to r/o obstruction -Cont home medications including Eliquis for her a-fib and celexa Diet: Carb-controlled w/ 1:1 swallow assist d/t hx of aspiration once passes RN swallow test VTE ppx: Eliquis Code: Full Dispo: Admit to inpatient
--- NOTE | 2018-07-08 14:49 | ASMTLACE ---
YOBANI Acuity / Level of Answers: Yes Care: Did the patient have an inpatient admission? Comorbidities - select Answers: Chronic pulmonary disease all that apply Dementia Diabetes (uncontrolled or controlled) History of falls Other Notes: Hypothyroid; AFib; HTN # of Emergency department Answers: 1-2 visits in the last 6 months Social determinants Answers: Mental health diagnosis (anxiety, depression, pers onality disorders, etc.) Score: 17 Date Signed: 07/08/2018 02:49 PM Electronically Signed By:Aydee Husain
--- NOTE | 2018-07-08 14:52 | CPEKG ---
Test Reason : OPEN Blood Pressure : / mmHG Vent. Rate : 104 BPM Atrial Rate : 104 BPM P-R Int : 134 ms QRS Dur : 094 ms QT Int : 379 ms P-R-T Axes : -73 -68 073 degrees QTc Int : 499 ms Sinus or ectopic atrial tachycardia Atrial premature complexes LVH with secondary repolarization abnormality Inferior infarct, old Confirmed by Michaela Guzman ([id number]) on 07/08/2018 2:52:19 PM Referred By: PHYSICIAN ED Confirmed By:Michaela Guzman
--- NOTE | 2018-07-08 16:38 | ASMTCMCOM ---
CM Note CM Note Notes: Patient presented to the ED today accompnied by her daughter and guardian, Jesenia from [facility] where patient resides in [facility]. See ED report for details regarding admission related to likely UTI. Chart reviewed, including discharge summaries from CM and hospitalist on 09/19/17. Patient is followed by [facility] palliative care and I have contacted Gina at [facility] to confirm this and inform of patient's admission. CM to follow Date Signed: 07/08/2018 04:37 PM Electronically Signed By:Cathy Ballard RN
[2018-07-08] MEDS: NS 1,000 ML IV SCH ×2 (16:57→21:26)
[2018-07-08] MEDS: AMPICILLIN/SULBACTAM 3 GM in NS 100 ML IV SCH ×2 (16:57→21:05)
[2018-07-08] MEDS: clonazePAM 0.5 MG TAB PO SCH ×2 (17:10→21:26)
[2018-07-08] MEDS: INSULIN LISPRO 100 UNIT/ML SC SCH (18:19)
[2018-07-08] MEDS: APIXABAN 5 MG TAB PO SCH (21:25)
--- NOTE | 2018-07-08 21:25 | GCON ---
[f rep st] CONSULTATION DATE OF CONSULTATION: 07/08/2018 HISTORY OF PRESENT ILLNESS: The patient is a 77-year-old, severely demented female who presented to the emergency department today with a suspected urinary tract infection and possible oral infection leading to sepsis. I was consulted by Dr. Veronica Mclain to evaluate patient's oral dentition to determine if this was the source of her sepsis. Due to the patient's current mental facilities, I am unable to obtain a subjective history from the patient. EXAMINATION: Intraoral examination reveals multiple decayed and fractured teeth in all 4 quadrants of the patient's mouth. The patient's oral hygiene is very poor. She has multiple restorations on almost all of her teeth. There were no signs of acute abscess or space infection. There are no draining fistulas present. CT scan was reviewed which also showed some small periapical radiolucencies, suggestive of chronic apical periodontitis, but there were no signs of soft- tissue swelling or cellulitis. ASSESSMENT AND PLAN: The patient is a 77-year-old female who is severely demented with multiple carious and fractured teeth. There are no signs of acute abscess which would be suggesting a cause of her systemic sepsis. At some point in time, the patient's family may want to consider bringing her to an outpatient surgery center for full mouth tooth extraction, as the patient is not able to maintain her dentition with her current mental facilities and the hygiene that is being performed. However, at this time her dentition is not the source of her acute sepsis and does not present as an urgent or emergent need. I have called and left Dr. Mclain a message discussing my findings. /[id number]/MODL MTDD
[2018-07-08] MEDS: INSULIN GLARGINE 100 UNITS/ML UNIT SC SCH (21:28)
[2018-07-08] MEDS: ACETAMINOPHEN 650 MG SUPP PR PRN (21:44)
[2018-07-09] MEDS: AMPICILLIN/SULBACTAM 3 GM in NS 100 ML IV SCH ×2 (03:01→08:54)
[2018-07-09 06:02] LABS: PLATELET COUNT 225 10^3/uL (150-400)
[2018-07-09 08:29] LABS: PLATELET COUNT 196 10^3/uL (150-400)
[2018-07-09] MEDS: INSULIN LISPRO 100 UNIT/ML SC SCH ×3 (08:54→17:32)
[2018-07-09] MEDS: CITALOPRAM 20 MG TAB PO SCH (08:55)
[2018-07-09] MEDS: clonazePAM 0.5 MG TAB PO SCH ×3 (08:55→22:25)
[2018-07-09] MEDS: APIXABAN 5 MG TAB PO SCH ×2 (08:55→22:25)
[2018-07-09] MEDS: LEVOTHYROXINE 50 MCG TAB PO SCH (08:55)
[2018-07-09] MEDS: SENNOSIDES/DOCUSATE SODIUM TAB PO SCH ×2 (08:55→14:30)
[2018-07-09] MEDS: D5W 1,000 ML IV SCH (11:43)
[2018-07-09] MEDS ORDERED: PROTOCOL CALCIUM 1 DOSE IV PRN (11:49)
[2018-07-09] MEDS ORDERED: PROTOCOL POTASSIUM 1 DOSE MISC PRN (11:49)
[2018-07-09] MEDS ORDERED: PROTOCOL MAGNESIUM 1 DOSE IV PRN (11:49)
[2018-07-09] MEDS ORDERED: CHOLECALCIFEROL VIT D3 50,000 UNIT CAP PO SCH (14:09)
--- NOTE | 2018-07-09 14:13 | HOSPPROG ---
Hospitalist Progress Note Assessment/Plan: 77 year old female with PMH of advanced dementia admitted with hyperglycemia, sepsis, delirium. Sepsis- likely urinary source. there was initially concern for dental infection as a possible nidus of infection. OMFS consulted and I reviewed the CT and likely not contributing to infection. was given rocephin in er, then transitioned to unasyn for potential dental infection. I reviewed the culture showing LFGRN. white count responding and trending down. No fevers or tachycardia and patient with hypertension. -repeat lactate VBG -Resume rocephin -monitor cultures and taper abx based on culture data. -cont IVF Insulin dependent DM- concerned as patients glucose was as high as 500, and has been extremely elevated to over 300 fairly consistently. A1c pending. On 21 units of lantus at home. -cont lantus -cont ssi -A1c pending. -if glucose rises and gap opens may require transfer to ICU and insulin gtt encephalopathy- in setting of advanced dementia. likely metabolic encephalopathy in setting of infection hypernatremia and hyperglycemia. Hypernatremia- sodium corrects to 156 today up from 145 yesterday. Stopped Normal saline, started D5w and repeat serum sodium Q4 with goal correction 8 points in 24 hours. afib- on eliquis. cont if able to take oral medications. Cont tele hypothyroid-TSH pending. cont synthroid PPX- eliquis, scds Fluids- D5w Lytes- on replacement protocol and D5 for hypernatremia Nutrition- adat if passes swallow Cor- DNR Dispo- inpaitnet for sepsis, delirium, encephalopathy Subjective: patient mumbling incoherently. does not appear in pain. Objective: Vital Signs Temp Pulse Resp BP Pulse Ox 37.6 C 100 36 H 157/98 H 91 L 07/09/18 10:50 07/09/18 10:50 07/09/18 10:50 07/09/18 10:50 07/09/18 10:50 Laboratory Results 07/09/18 07:55 07/09/18 09:56 07/08/18 07/09/18 07/10/18 05:59 05:59 05:59 Intake Total 2300 Balance 2300 - Physical Exam Constitutional: chronically ill appearing, unkempt Eyes: PERRL, anicteric sclera, EOMI Ears, Nose, Mouth, Throat: dry mucous membranes, other (multiple broken teeth and brown crust over teeth, with poor oral dentition and carrious lesions) Cardiovascular: tachycardia Respiratory: no respiratory distress, no rales or rhonchi, clear to auscultation Gastrointestinal: soft, non-tender abdomen, no palpable masses Genitourinary: no bladder fullness Skin: warm, normal color Musculoskeletal: generalized weakness Neurologic: other (mumbling, not able to asseess. ) Psychiatric: encephalopathic Lymph, Heme, Immunologic: no cervical LAD ICD10 Worksheet Patient Problems: Problems Problem Status Onset Acute hyperglycemia Acute Altered mental status Acute Choking episode Acute DKA (diabetic ketoacidoses) Acute Dehydration Acute Delirium Acute Dementia Acute Failure to thrive Acute Palliative care encounter Acute Pneumonia Acute Sepsis Acute UTI (urinary tract infection) Acute
[2018-07-09] MEDS ORDERED: LORazepam 2 MG/ML INJ IVP ONE (14:29)
--- NOTE | 2018-07-09 15:40 | PDMN ---
Medical Necessity Medical necessity: Pt meets IP criteria per MOVIE EXTRA & MCG M-160; est los >2 mn for eval/tx of severe sepsis w/agitated delirium, hyperglycemia, possible UTI & oral infection; admit for further workup/monitoring, Oral Surgery consult, IV abx, IVFs & therapies; comorbid advanced age, dementia; per H&P & order 07/08/18
--- NOTE | 2018-07-09 16:27 | ASMTCMCOM ---
CM Note CM Note Notes: Pt discussed in rounds and chart reviewed for discharge. Pt continues on , in the afternoon and will yell out loud. WBC elevated, states Pt will not be ready to discharge anytime soon. Pt is current with [facility] and Antonio was here today. CM available for needs. PLAN: Likely return to [facility] when medically cleared Date Signed: 07/09/2018 04:26 PM Electronically Signed By:Glory Heredia
[2018-07-09] MEDS: INSULIN GLARGINE 100 UNITS/ML UNIT SC SCH (22:16)
[2018-07-10] MEDS ORDERED: POTASSIUM CL 10 MEQ TAB PO ONE ×3 (00:25→20:28)
[2018-07-10] MEDS: ACETAMINOPHEN 650 MG SUPP PR PRN (00:53)
[2018-07-10] MEDS: D5W 1,000 ML IV SCH (03:46)
[2018-07-10 05:27] LABS: PLATELET COUNT 182 10^3/uL (150-400)
[2018-07-10] MEDS: INSULIN LISPRO 100 UNIT/ML SC SCH ×3 (07:50→17:18)
[2018-07-10] MEDS: LEVOTHYROXINE 50 MCG TAB PO SCH (07:50)
[2018-07-10] MEDS: CITALOPRAM 20 MG TAB PO SCH (07:57)
[2018-07-10] MEDS: APIXABAN 5 MG TAB PO SCH ×2 (07:57→21:35)
[2018-07-10] MEDS: SENNOSIDES/DOCUSATE SODIUM TAB PO SCH (07:58)
[2018-07-10] MEDS: clonazePAM 0.5 MG TAB PO SCH ×3 (07:58→21:35)
[2018-07-10] MEDS: PIPERACILLIN/TAZO 3.375 GM/DEX 50 ML IV SCH ×2 (11:30→17:19)
--- NOTE | 2018-07-10 14:36 | HOSPPROG ---
Hospitalist Progress Note Assessment/Plan: 77 year old female with PMH of advanced dementia admitted with hyperglycemia, sepsis, delirium. Sepsis- likely urinary source. there was initially concern for dental infection as a possible nidus of infection. OMFS consulted and I reviewed the CT and likely not contributing to infection. was given rocephin in er, then transitioned to unasyn for potential dental infection. I reviewed the culture showing LFGRN. white count responding and trending down. No fevers or tachycardia and patient with hypertension. -culture positive for ESBL e coli -change to zosyn -consult ID -cont IVF Insulin dependent DM- concerned as patients glucose was as high as 500, and has been extremely elevated to over 300 fairly consistently. A1c pending. On 21 units of lantus at home. -cont lantus -cont ssi -A1c pending. -if glucose rises and gap opens may require transfer to ICU and insulin gtt encephalopathy- in setting of advanced dementia. likely metabolic encephalopathy in setting of infection hypernatremia and hyperglycemia. improving. she is much more pleasant and interactive today. Hypernatremia- normalized yesterday but again up this morning. may have been spurious lab as repeat with 144. Would continue D5, until we can determine if she is eating. afib- on eliquis. cont if able to take oral medications. Cont tele hypothyroid-TSH pending. cont synthroid PPX- eliquis, scds Fluids- D5w Lytes- on replacement protocol and D5 for hypernatremia Nutrition- adat if passes swallow Cor- DNR Dispo- inpatient for sepsis, delirium, encephalopathy Subjective: pleasantly confused this afternoon. Does not apear in pain. Objective: Vital Signs Temp Pulse Resp BP Pulse Ox 37.7 C 75 30 H 147/94 H 97 07/10/18 09:58 07/10/18 09:58 07/10/18 09:58 07/10/18 09:58 07/10/18 09:58 Laboratory Results 07/10/18 04:42 07/10/18 12:45 07/09/18 07/10/18 07/11/18 05:59 05:59 05:59 Intake Total 2300 1567 Output Total 200 Balance 2300 1367 - Physical Exam Constitutional: no apparent distress, appears nourished, not in pain Eyes: PERRL, anicteric sclera, EOMI Ears, Nose, Mouth, Throat: moist mucous membranes, hearing normal, ears appear normal, no oral mucosal ulcers Cardiovascular: regular rate and rhythym, no murmur, rub, or gallop Respiratory: no respiratory distress, no rales or rhonchi, clear to auscultation Gastrointestinal: normoactive bowel sounds, soft, non-tender abdomen, no palpable masses Genitourinary: no bladder fullness, no bladder tenderness, no renal bruits Skin: no rashes or abrasions, no fluctuance, no induration Musculoskeletal: generalized weakness Neurologic: other (not oriented. unable to assess. ) Psychiatric: encephalopathic Lymph, Heme, Immunologic: no cervical LAD, no supraclavicular LAD ICD10 Worksheet Patient Problems: Problems Problem Status Onset Acute hyperglycemia Acute Altered mental status Acute Choking episode Acute DKA (diabetic ketoacidoses) Acute Dehydration Acute Delirium Acute Dementia Acute Failure to thrive Acute Palliative care encounter Acute Pneumonia Acute Sepsis Acute UTI (urinary tract infection) Acute
[2018-07-10] MEDS: INSULIN GLARGINE 100 UNITS/ML UNIT SC SCH (21:35)
[2018-07-11] MEDS: PIPERACILLIN/TAZO 3.375 GM/DEX 50 ML IV SCH ×5 (00:56→23:10)
[2018-07-11 06:47] LABS: PLATELET COUNT 159 10^3/uL (150-400)
[2018-07-11] MEDS: INSULIN LISPRO 100 UNIT/ML SC SCH ×3 (10:21→18:09)
[2018-07-11] MEDS: clonazePAM 0.5 MG TAB PO SCH ×3 (10:22→22:49)
[2018-07-11] MEDS: SENNOSIDES/DOCUSATE SODIUM TAB PO SCH (10:22)
[2018-07-11] MEDS: APIXABAN 5 MG TAB PO SCH ×2 (10:23→22:49)
[2018-07-11] MEDS: CITALOPRAM 20 MG TAB PO SCH (10:23)
[2018-07-11] MEDS: LEVOTHYROXINE 50 MCG TAB PO SCH (10:25)
[2018-07-11] MEDS: D5W 1,000 ML IV SCH (11:00)
[2018-07-11] MEDS: INSULIN GLARGINE 100 UNITS/ML UNIT SC SCH ×2 (12:01→22:49)
--- NOTE | 2018-07-11 13:48 | HOSPPROG ---
Hospitalist Progress Note Assessment/Plan: 77 year old female with PMH of advanced dementia admitted with hyperglycemia, sepsis, delirium. Sepsis- likely urinary source. CT face, and OMFS consult do not suggest carries as source. Urine with ESBL. I discussed with ID who consulted patient and recommends treatment with zosyn for 3-5 days for ESBL e coli. -culture positive for ESBL e coli -change to zosyn -consult ID -cont IVF Insulin dependent DM- concerned as patients glucose was as high as 500, and has been extremely elevated to over 300 fairly consistently. A1c pending. On 21 units of lantus at home. -lantus 21 HS -add Lantus 6 units daily, -cont ssi -A1c pending. -may need further insulin in setting of getting D5 for hyponatremia. encephalopathy- in setting of advanced dementia. likely metabolic encephalopathy in setting of infection hypernatremia and hyperglycemia. improving. she is much more pleasant and interactive today. Hypernatremia- normalized yesterday but again up this morning. may have been spurious lab as repeat with 144. Would continue D5W. not taking good po. afib- on eliquis. cont if able to take oral medications. Cont tele hypothyroid-TSH pending. cont synthroid PPX- eliquis, scds Fluids- D5w Lytes- on replacement protocol and D5 for hypernatremia Nutrition- regular Cor- DNR Dispo- inpatient for sepsis, delirium, encephalopathy Subjective: patient mumbling but appears pleasantly confused. Objective: Vital Signs Temp Pulse Resp BP Pulse Ox 37.2 C 68 26 H 140/96 H 100 07/11/18 07:55 07/11/18 07:55 07/11/18 07:55 07/11/18 07:55 07/11/18 07:55 Laboratory Results 07/11/18 06:37 07/11/18 06:37 07/10/18 07/11/18 07/12/18 05:59 05:59 05:59 Intake Total 1567 2928 Output Total 200 300 Balance 1367 2628 - Physical Exam Constitutional: no apparent distress, appears nourished Eyes: anicteric sclera Ears, Nose, Mouth, Throat: no oral mucosal ulcers, dry mucous membranes Cardiovascular: regular rate and rhythym, no murmur, rub, or gallop Respiratory: no respiratory distress, no rales or rhonchi, clear to auscultation Gastrointestinal: normoactive bowel sounds, soft, non-tender abdomen Genitourinary: no bladder fullness, no bladder tenderness Skin: warm, normal color Musculoskeletal: generalized weakness Neurologic: other (not oriented at all. able to move all extremities. ) Psychiatric: encephalopathic Lymph, Heme, Immunologic: no cervical LAD, no supraclavicular LAD ICD10 Worksheet Patient Problems: Problems Problem Status Onset Acute hyperglycemia Acute Altered mental status Acute Choking episode Acute DKA (diabetic ketoacidoses) Acute Dehydration Acute Delirium Acute Dementia Acute Failure to thrive Acute Palliative care encounter Acute Pneumonia Acute Sepsis Acute UTI (urinary tract infection) Acute
--- NOTE | 2018-07-11 16:00 | GCON ---
[f rep st] CONSULTATION INPATIENT INFECTIOUS DISEASE CONSULTATION DATE OF CONSULTATION: 07/11/2018 REFERRING PHYSICIAN: Ryan Hatch MD REASON FOR CONSULTATION: Mild sepsis, possible urinary tract infection with ESBL E coli. HISTORY OF PRESENT ILLNESS: The patient is a 77-year-old female who resides in the Memory Care Unit at [facility] with severe dementia. Her baseline is minimally communicative, oriented x1. She wa s brought into [facility] Emergency Room on 07/08/2018, with change in mental status. This ch cammie encompassed her being more babbling and less coherent. Workup in the emergency room revealed a leukocytosis to 16,000. She also demonstrated a fever to 38.7. Chest x-ray was clear. There was co ncern about odontologic infection, so a face CT was performed that showed no focus of infection. The patient also had an abdominal x-ray and a humeral x-ray, which were not revealing of any primary lucio rce of illness. The patient's urinalysis was abnormal with blood and protein, but did not have signi ficant number of white cells. Culture grew ESBL E coli, which was sensitive to Zosyn. Patient was s tarted on IV Zosyn on 07/10/2018. Currently, she is resting comfortably in her hospital bed. She answers yes and no to questions appro priately. I asked her if she was feeling okay and she said yes. She proceeded to have more mumbling , which was difficult to interpret. We are consulted to help guide therapy in regard to the possible urinary tract infection. PAST MEDICAL HISTORY: 1. Severe dementia. 2. Type 2 diabetes. 3. Hypertension. 4. Atrial fibrillation. 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 No renal cell carcinoma his tory. MEDICATIONS: Antibiotic: Zosyn. ALLERGIES: Quetiapine. FAMILY HISTORY: Reviewed in chart and negative. SOCIAL HISTORY: The patient is a remote smoker. No alcohol or drug use. The patient is completely dependent for her activities of daily living and resides at the Memory Unit of [facility]. REVIEW OF SYSTEMS: Unable to obtain secondary to the patient's dementia status. PHYSICAL EXAMINATION: VITAL SIGNS: Temperature maximum 38.3, temperature current 37.2, heart rate 6 8, respiratory rate is 26, blood pressure is 140/96. GENERAL: The patient is a well-formed, well-no urished older-appearing female in no acute distress. She is not toxic in appearance. She is alert. She definitely has orientation loss to place and time. She does answer to her name, however. She i s pleasant in demeanor. HEENT: Normocephalic for age, atraumatic. No scleral icterus. No drainage from the nares. Eyes: Lids and conjunctivae within normal limits. Pupils are equal and round bila terally. NECK: Supple. No meningismus. LUNGS: Clear to auscultation bilaterally, good effort. H EART: Regular rate and rhythm. No murmur noted. No significant peripheral edema noted. SKIN: War m and dry to the touch. No rash or lesion noted. MUSCULOSKELETAL: No muscle belly tenderness is no andrzej. No joint line effusion or arthritis is seen. NEUROLOGICAL: Unable to obtain secondary to franco ent's dementia status. LABORATORY DATA: Patient has a CBC dated 07/11/2018, shows white blood cell count of 11.9, hemoglobi n of 12.5, hematocrit of 40.2, platelet count of 159. Differential is left-shifted with 77% segmente d neutrophils. Serum chemistries on 07/11/2018, show sodium 148, potassium 4.0, chloride 119, bicarb kaya of 21, BUN of 19, creatinine of 1.0. AST is 13, ALT is 29, total protein is 5.1, albumin is 2. 7. Urinalysis on 07/08/2018, shows 2+ protein, 3+ blood, positive nitrites, negative bilirubin or ur obilinogen, 2+ leukocyte esterase, 1 to 3 red cells and 5 to 10 white cells per high-power field. MICROBIOLOGIC DATA: Patient has blood cultures dated 07/08/2018, which are no growth to date. Respi ratory panel: PCR is negative. Urine clean-catch from 07/08/2018, is growing greater than 100,000 c olony-forming units of E coli ESBL digital media producer. ASSESSMENT: Probable infection and possible urinary source. The patient is unable to give directed symptomatology to the urinary tract, which is complicating for diagnosis. Given her postmenopausal s tatus, the mere presence of greater than 100,000 CFUs of gram-negative is not an abnormality that is definitively indicative of infection. However, she does have a mild amount of white cells and leukoc yte esterase, and clearly had leukocytosis on presentation. It is reasonable to treat the urinary is olate as a possible pathogen. She is on Zosyn currently at 3.375 g q.6 hours. I think this is reaso nable to continue. I would treat for 3 to 5 days only. We will follow her clinical course. PLAN: 1. Continue Zosyn at present dose. 2. Total duration of 3 to 5 days of treatment. /[id number]/MODL
[2018-07-12] MEDS: D5W 1,000 ML IV SCH (01:56)
[2018-07-12 04:37] LABS: PLATELET COUNT 136 10^3/uL (150-400)
[2018-07-12] MEDS: PIPERACILLIN/TAZO 3.375 GM/DEX 50 ML IV SCH ×2 (06:15→13:07)
[2018-07-12] MEDS ORDERED: MAGNESIUM SULF 1 GM/DEXTROSE 100 ML IV ONE ×2 (07:09→12:00)
[2018-07-12] MEDS ORDERED: CALCIUM GLUCONATE 50 ML IV ONE (07:09)
[2018-07-12] MEDS: INSULIN LISPRO 100 UNIT/ML SC SCH ×3 (09:54→17:28)
[2018-07-12] MEDS: INSULIN GLARGINE 100 UNITS/ML UNIT SC SCH ×2 (09:54→21:21)
[2018-07-12] MEDS: APIXABAN 5 MG TAB PO SCH ×2 (09:54→21:21)
[2018-07-12] MEDS: CITALOPRAM 20 MG TAB PO SCH (09:55)
[2018-07-12] MEDS: SENNOSIDES/DOCUSATE SODIUM TAB PO SCH (09:55)
[2018-07-12] MEDS: clonazePAM 0.5 MG TAB PO SCH ×3 (09:55→21:21)
[2018-07-12] MEDS: LEVOTHYROXINE 50 MCG TAB PO SCH (09:55)
--- NOTE | 2018-07-12 11:27 | ASMTCMCOM ---
CM Note CM Note Notes: Patient plan of care reviewed in am rounds. She will require a few days of antibiotic prior to returning to [facility] where she currently resides. Plan: Return to [facility] Date Signed: 07/12/2018 11:20 AM Electronically Signed By:Ana Muller RN
--- NOTE | 2018-07-12 14:04 | HOSPPROG ---
Hospitalist Progress Note Assessment/Plan: # possible UTI, ESBL e. coli - planning 5 day course of zosyn (or invanz) per ID # sepsis - resolved # DM - glucs ok on glargine and SSI lispro # advanced dementia - lives at memory unit in [facility] # a-fib - on eliquis # hyperNa - resolved # hypothyroid - synthroid Subjective: sitting in chair, being fed lunch; had a BM Objective: Vital Signs Temp Pulse Resp BP Pulse Ox 36.4 C 63 18 130/76 H 98 07/12/18 08:00 07/12/18 08:00 07/12/18 08:00 07/12/18 08:00 07/12/18 08:00 Laboratory Results 07/12/18 04:20 07/12/18 04:20 07/11/18 07/12/18 07/13/18 05:59 05:59 05:59 Intake Total 2928 2185 Output Total 300 200 Balance 2628 1984 chart reviewed imaging reviewed - Physical Exam Constitutional: chronically ill appearing Cardiovascular: regular rate and rhythym, no murmur, rub, or gallop Respiratory: no respiratory distress, no rales or rhonchi, clear to auscultation Gastrointestinal: normoactive bowel sounds, soft, non-tender abdomen, no palpable masses ICD10 Worksheet Patient Problems: Problems Problem Status Onset ESBL (extended spectrum beta-lactamase) producing bacteria infection Acute Pneumonia Acute Sepsis Acute Delirium Acute Dementia Acute UTI (urinary tract infection) Acute Dehydration Acute Altered mental status Acute Failure to thrive Acute Palliative care encounter Acute Choking episode Acute Acute hyperglycemia Acute DKA (diabetic ketoacidoses) Acute
--- NOTE | 2018-07-12 15:50 | PCMIDPN ---
Assessment/Plan: Assessment/Plan: * Sepsis syndrome likely of urinary etiology due to ESBL E coli: Clinically improved with Zosyn therapy with decreased white blood cell count and resolution of fever. Given underlying dementia, difficult to obtain historical elements to further guide establishment of definite etiology. Will plan 5 days of antibiotic therapy in total given marked leukocytosis. Will change to ertapenem 1 g IV daily to complete course of therapy (day # 2/5 today). Antibiotic therapy could be completed at detention facility given clinical improvement. Clinical findings and plan were reviewed with Dr. Cordova today. 07/12/18 15:47 Subjective: Patient non communicative. Sitting up in chair at time of visit. Dr. Corrigan's consultation of 07/11/18 reviewed. Objective: Vital Signs Temp Pulse Resp BP Pulse Ox 36.4 C 63 18 130/76 H 98 07/12/18 08:00 07/12/18 08:00 07/12/18 08:00 07/12/18 08:00 07/12/18 08:00 Laboratory Results 07/12/18 04:20 07/12/18 04:20 07/11/18 07/12/18 07/13/18 05:59 05:59 05:59 Intake Total 2928 2185 Output Total 300 200 Balance 2628 1985 Zosyn # 2 Blood cultures x2 no growth Urine culture greater than 100,000 ESBL producing E coli - Physical Exam General Appearance: alert, no apparent distress, non-toxic EENT: No scleral icterus, No thrush Respiratory: lungs clear, No respiratory distress Cardiac/Chest: regular rate, rhythm Abdomen: non-tender, No distended Skin: No embolic lesions Neuro/Psych: confused ICD10 Worksheet Patient Problems: Problems Problem Status Onset ESBL (extended spectrum beta-lactamase) producing bacteria infection Acute Acute hyperglycemia Acute Altered mental status Acute Choking episode Acute DKA (diabetic ketoacidoses) Acute Dehydration Acute Delirium Acute Dementia Acute Failure to thrive Acute Palliative care encounter Acute Pneumonia Acute Sepsis Acute UTI (urinary tract infection) Acute
--- NOTE | 2018-07-12 21:50 | HOSPPROG ---
Hospitalist Progress Note Assessment/Plan: Hypernatremia has resolved therefore d/c'ed her D5W; was told pt has been drinking fluids during meal times so I will hold off on initiating any more IVF until daytime hospitalist reassess in AM. Objective: Vital Signs Temp Pulse Resp BP Pulse Ox 36.4 C 72 18 146/80 H 99 07/12/18 16:59 07/12/18 16:59 07/12/18 16:59 07/12/18 16:59 07/12/18 16:59 Laboratory Results 07/12/18 04:20 07/12/18 18:15 07/11/18 07/12/18 07/13/18 05:59 05:59 05:59 Intake Total 2928 2185 1050 Output Total 300 200 Balance 2628 1985 1050 ICD10 Worksheet Patient Problems: Problems Problem Status Onset ESBL (extended spectrum beta-lactamase) producing bacteria infection Acute Acute hyperglycemia Acute Altered mental status Acute Choking episode Acute DKA (diabetic ketoacidoses) Acute Dehydration Acute Delirium Acute Dementia Acute Failure to thrive Acute Palliative care encounter Acute Pneumonia Acute Sepsis Acute UTI (urinary tract infection) Acute
[2018-07-13 05:05] LABS: PLATELET COUNT 169 10^3/uL (150-400)
[2018-07-13] MEDS ORDERED: POTASSIUM CL 10 MEQ TAB PO ONE (07:50)
[2018-07-13] MEDS ORDERED: ERTAPENEM 1 GM in NS 100 ML IV SCH (09:00)
[2018-07-13] MEDS: CITALOPRAM 20 MG TAB PO SCH (09:33)
[2018-07-13] MEDS: APIXABAN 5 MG TAB PO SCH (09:33)
[2018-07-13] MEDS: LEVOTHYROXINE 50 MCG TAB PO SCH (09:33)
[2018-07-13] MEDS: clonazePAM 0.5 MG TAB PO SCH (09:33)
[2018-07-13] MEDS: INSULIN LISPRO 100 UNIT/ML SC SCH ×2 (09:34→12:05)
[2018-07-13] MEDS: INSULIN GLARGINE 100 UNITS/ML UNIT SC SCH (09:40)
[2018-07-13] MEDS: SENNOSIDES/DOCUSATE SODIUM TAB PO SCH (09:41)
--- NOTE | 2018-07-13 11:49 | PDIAF ---
- Diagnosis Diagnosis: ESBL UTI Code Status: Do Not Resuscitate - Medication Management [employer]ice Antibiotics: Invanz 1g IV daily, stop after dose on 07/15/18 Discharge Medications: electronically signed and located in the Home Medication List. - Orders Isolation Type: Contact Isolation Diet Recommendation: no restrictions on diet Diet Texture: Dysphagia 2 - Mechanically Altered - Chopped, Ground, Dysphagia 1 - Pureed, Thin Liquids, Meds Crushed in Puree - Labs/Radiology BMP Date: 07/15/18 - Follow Up Care Current Providers and Referrals: Patient,NotPresent [Primary Care Provider] -
--- NOTE | 2018-07-13 12:41 | GDS ---
[f rep st] DISCHARGE SUMMARY FINAL DIAGNOSES: 1. ESBL Escherichia coli urinary tract infection. 2. Sepsis. 3. Diabetes mellitus, on insulin. 4. Advanced dementia. 5. Atrial fibrillation, on Eliquis. 6. Hyponatremia. 7. Hypothyroid. 8. Hypokalemia. HOSPITAL COURSE: 77-year-old female who permanently resides at [facility] was admitted with a meenakshi pected urinary tract infection and sepsis. Urine culture grew ESBL E coli. She was initially treate d with Rocephin, this was changed to Zosyn when urine culture was returned. We will plan a 5 day tot al course of antibiotics since appropriate antibiotics were started. She will be transitioned to Inv anz for ease of dosing, she will stop antibiotics after her dose on 07/15. Otherwise, she has requir ed potassium supplementation, I have started her on daily potassium and will recheck a basic metaboli c panel in 2 days. Her other chronic problems have been stable while she is here including dementia and atrial fibrillation and diabetes BILLING: I spent more than 30 minutes on the day of discharge coordinating care. /[id number]/MODL
[2018-07-13 14:33] VITALS: BP 135/94
--- NOTE | 2018-07-15 22:28 | EDPHY ---
H & P Stated Complaint: hyperglycemia reading high, fever 100.4, 5units humalog at 0915 Time Seen by Provider: 07/08/18 11:41 HPI/ROS: cc: fever, hyperglycemia Limitations: severe dementia, hx via EMS HPI: 77yo female with advanced dementia and DM presents with fever and hyperglycemia. She lives in a memory care facility and usually is alert and oriented to self. Today, pt is less active than usual and was febrile. Blood sugar elevated in the 400's. Minimal/no oral intake today. - Personal History Current Tetanus/Diphtheria Vaccine: Unsure Current Tetanus Diphtheria and Acellular Pertussis (TDAP): Unsure - Medical/Surgical History Hx Asthma: No Hx Chronic Respiratory Disease: Yes Hx Diabetes: Yes Hx Cardiac Disease: Yes Hx Renal Disease: No Hx Cirrhosis: No Hx Alcoholism: No Hx HIV/AIDS: No Hx Splenectomy or Spleen Trauma: No Other PMH: COPD, dementia, encephalopathy, pt has 1 kidney; hyperlipidemia, insomnia, afib, dysphagia, multiple falls, hypothyroidism, depression, type 2 diabetes, hemorrhoids - Social History Smoking Status: Former smoker Alcohol Use: None - Physical Exam Exam: Alert, looks at me when I talk Head: normal inspection Eyes: no conjunctival erythema or drainage ENT: oropharynx is dry, dried blood and food in mouth, dental decay Neck: normal inspection, no masses Chest: CTA anteriorly CV: regular tachycardia Abd: soft, no apparent tenderness Ext: normal inspection Neuro: Alert, VELAZQUEZ, does not follow commands Psych: not agitated or anxious Constitutional: Initial Vital Signs Temperature (C) 36.4 C 07/08/18 10:45 Heart Rate 117 H 07/08/18 10:45 Respiratory Rate 18 07/08/18 10:45 Blood Pressure 158/109 H 07/08/18 10:45 O2 Sat (%) 92 07/08/18 10:45 O2 Delivery Mode Room Air Allergies/Adverse Reactions: propoxyphene Allergy (Verified 07/08/18 11:08) quetiapine [From Seroquel] Allergy (Verified 07/08/18 11:08) Home Medications: Medication Instructions Recorded Acetaminophen [Tylenol ES 500 mg 500 mg PO Q6 PRN 06/21/16 (*)] Acetaminophen [Tylenol ES 500 mg 500 mg PO TID 06/21/16 (*)] Citalopram Hydrobromide 20 mg PO DAILY 06/21/16 [Citalopram HBr] Levothyroxine [Synthroid 50 mcg 50 mcg PO DAILY@08 06/21/16 (*)] Sennosides/Docusate Sodium 1 each PO DAILY 06/21/16 [Senokot-S] Apixaban [Eliquis] 5 mg PO BID #0 tab 06/25/16 Polyethylene Glycol 3350 [Miralax 17 gm PO DAILY PRN 02/15/17 17 gm (*)] clonazePAM [Klonopin (*)] 0.25 mg PO TID 09/18/17 Cholecalciferol Vit D3 [Vitamin D3 50,000 unit PO FR 07/08/18 (*)] Insulin Glargine [Lantus Syringe] 21 units SC HS 07/08/18 Phenyleph/Mineral Oil/Petrolat 1 cruz RC Q6HRS PRN 07/08/18 [Eql Hemorrhoidal Ointment] Sennosides [Senna Lax] 8.6 mg PO BID PRN 07/08/18 Ertapenem [INVanz] 1 gm IV DAILY vial 07/13/18 Potassium Cl [Klor-Con] 10 meq PO DAILY #30 tab 07/13/18 Medical Decision Making - Diagnostics EKG Interpretation: EKG interpreted by me reveals sinus tachycardia, rate 104, LVH, old IMI. Interpretation: abnormal EKG Imaging Results: CXR: no infiltrate Imaging: I viewed and interpreted images myself ED Course/Re-evaluation: This pt presents with fever and hyperglycemia. HPI is challenging, given pt unable to assist with history and family not present. Meets SIRS criteria, lactate 2.9. IVF per sepsis protocol given. Repeat lactate 2.9. UA c/w UTI. Urine cx sent and Rocephin IV given. Oral hygiene poor, food/blood removed as possible by ED RN. Poor dentition, no obvious oral infection. CXR: no infiltrate and pt not coughing and not hypoxic. Most likely UTI as source of fever. Hyperglycemia noted. Insulin IV given. Pt not acidotic, no evidence of DKA. The hospitalist service was consulted for admission. Differential Diagnosis: includes though not limited to pyelonephritis, pneumonia, dental abscess, cellulitis, influenza - Data Points Laboratory Results: Laboratory Results 07/08/18 10:45 07/08/18 10:45 Medications Given: Discontinued Medications Acetaminophen (Tylenol Rectal) 650 mg [place] Q4HRS PRN PRN Reason: Pain, Mild/Fever,Can't Take PO Stop: 01/04/19 15:50 Last Admin: 07/10/18 00:53 Dose: 650 mg Apixaban (Eliquis) 5 mg PO BID SHANIQUE Stop: 01/04/19 20:59 Last Admin: 07/13/18 09:33 Dose: 5 mg Cholecalciferol (D3-50) 50,000 unit PO FR SHANIQUE Stop: 01/05/19 14:08 Last Admin: 07/09/18 17:30 Dose: Not Given Citalopram Hydrobromide (Celexa) 20 mg PO DAILY HSANIQUE Stop: 01/05/19 08:59 Last Admin: 07/13/18 09:33 Dose: 20 mg Clonazepam (Klonopin) 0.25 mg PO TID SHANIQUE Stop: 01/04/19 15:59 Last Admin: 07/13/18 09:33 Dose: 0.25 mg Sodium Chloride (Ns) 2,200 mls @ 4,400 mls/hr 30 ml/kg infuse over 30 min ( 2200 ml) IV EDNOW ONE PRN Reason: Protocol Stop: 07/08/18 12:12 Last Admin: 07/08/18 11:47 Dose: 2,200 mls Ceftriaxone Sodium/Dextrose (Rocephin 1 Gm (Premix)) 50 mls @ 100 mls/hr IV EDNOW ONE PRN Reason: Protocol Stop: 07/08/18 13:33 Last Admin: 07/08/18 13:31 Dose: 50 mls Sodium Chloride (Ns) 1,000 mls @ 100 mls/hr IV CONT SHANIQUE Stop: 07/10/18 23:59 Last Admin: 07/08/18 21:26 Dose: 1,000 mls Ampicillin Sodium/Sulbactam (Sodium 3 gm/ Sodium Chloride) 100 mls @ 200 mls/ hr IV Q6H SHANIQUE PRN Reason: Protocol Stop: 08/07/18 14:59 Last Admin: 07/09/18 08:54 Dose: 100 mls Dextrose (D5w) 1,000 mls @ 75 mls/hr IV CONT [facility] Stop: 01/05/19 11:29 Last Admin: 07/12/18 01:56 Dose: 1,000 mls Ceftriaxone Sodium/Dextrose (Rocephin 1 Gm (Premix)) 50 mls @ 100 mls/hr IV DAILY SHANIQUE PRN Reason: Protocol Stop: 08/08/18 11:29 Last Admin: 07/10/18 08:27 Dose: 50 mls Piperacillin/Tazobactam/Dextrose (Zosyn 3.375 Gm (Premix)) 50 mls @ 100 mls/hr IV Q6HRS SHANIQUE PRN Reason: Protocol Stop: 08/09/18 11:59 Last Admin: 07/12/18 13:07 Dose: 50 mls Calcium Gluconate (Calcium Gluconate 1 Gm (Premix)) 50 mls @ 100 mls/hr IV ONCE ONE Stop: 07/12/18 07:38 Last Admin: 07/12/18 10:00 Dose: 50 mls Magnesium Sulfate/Dextrose (Magnesium Sulf 1 Gm (Premix)) 100 mls @ 100 mls/hr IV ONCE ONE Stop: 07/12/18 12:59 Last Admin: 07/12/18 11:57 Dose: 100 mls Ertapenem 1 gm/ Sodium (Chloride) 100 mls @ 200 mls/hr IV DAILY SHANIQUE Stop: 07/15/18 09:30 Last Admin: 07/13/18 09:34 Dose: 100 mls Insulin Glargine (Lantus Syringe) 21 units SC HS [facility] Stop: 01/04/19 20:59 Last Admin: 07/12/18 21:21 Dose: 21 units Insulin Glargine (Lantus Syringe) 7 units SC DAILY SHANIQUE Stop: 01/07/19 10:44 Last Admin: 07/13/18 09:40 Dose: 7 units Insulin Human Lispro (Humalog Lispro) 0 unit SC TIDMEAL SHANIQUE PRN Reason: Protocol Stop: 01/04/19 17:59 Last Admin: 07/13/18 12:05 Dose: Not Given Insulin Human Regular (Humulin R) 10 unit IVP EDNOW ONE Stop: 07/08/18 11:45 Last Admin: 07/08/18 12:17 Dose: 10 units Levothyroxine Sodium (Synthroid) 50 mcg PO DAILY@08 SHANIQUE Stop: 01/05/19 07:59 Last Admin: 07/13/18 09:33 Dose: 50 mcg Lorazepam (Ativan Injection) 0.5 mg IVP ONCE ONE Stop: 07/09/18 14:30 Last Admin: 07/09/18 14:43 Dose: 0.5 mg Potassium Chloride (Klor-Con) 10 - 40 meq PO ONCE ONE PRN Reason: Protocol Stop: 07/10/18 00:26 Last Admin: 07/10/18 00:53 Dose: 40 meq Potassium Chloride (Klor-Con) 10 - 40 meq PO ONCE ONE PRN Reason: Protocol Stop: 07/10/18 08:52 Last Admin: 07/10/18 10:16 Dose: Not Given Potassium Chloride (Klor-Con) 20 meq PO ONCE ONE PRN Reason: Protocol Stop: 07/10/18 20:29 Last Admin: 07/10/18 21:35 Dose: 20 meq Potassium Chloride (Klor-Con) 10 - 40 meq PO ONCE ONE PRN Reason: Protocol Stop: 07/13/18 07:51 Last Admin: 07/13/18 09:33 Dose: 40 meq Senna/Docusate Sodium (Senokot-S) 1 tab PO DAILY SHANIQUE Stop: 01/05/19 08:59 Last Admin: 07/13/18 09:41 Dose: Not Given Departure - Departure Disposition: [facility] Acute Clinical Impression: Acute hyperglycemia, Dehydration UTI (urinary tract infection) Qualifiers: Urinary tract infection type: site unspecified Hematuria presence: with hematuria Qualified Code(s): N39.0 - Urinary tract infection, site not specified Sepsis Qualifiers: Sepsis type: sepsis due to unspecified organism Qualified Code(s): A41.9 - Sepsis, unspecified organism Condition: Fair
--- NOTE | 2018-07-16 10:48 | PQFORM ---
PHYSICIAN QUERY FORM Needs Your Response This query form is being sent to you to assure this patient record is coded properly. Please respond to the question below: DRAWBENCH OPERATOR HELPER QUESTION: Dear Dr. Cordova, Metabolic Encephalopathy was documented within the Hospitalist Progress Notes dated 07/08-07/[address] Hatch, and Dr. Michele. Patient presented with agitation, delirium and Sepsis. Based on the clinical indicators and your professional judgment should the diagnosis of Metabolic Encephalopathy be included in the Discharge Summary? ___x__Yes No Other more appropriate diagnosis(please specify) Clinically unable to determine Thank you, Mackenzie Villafuerte, [facility] HIM/Coding Dept. INSTRUCTIONS FOR RESPONSE: Answer question by clicking on the "Edit Document" button. Move cursor to area below the stars. When complete, hit "Save." Click on the "Sign" button, then click "Sign" again. Type in your PIN and hit "Enter." MTDD
== END 2018-07-13 14:45 | DRG 871 ==
LOC: EDUNIT# → F1N 14:37
PROVIDERS: ADMIT Internal Medicine; ATTEND Internal Medicine
DX: A41.51 Sepsis due to Escherichia coli [E. coli] (principal); G93.41 Metabolic encephalopathy; N39.0 Urinary tract infection, site not specified; E87.1 Hypo-osmolality and hyponatremia; E11.9 Type 2 diabetes mellitus without complications; F03.90 Unspecified dementia, unspecified severity, without behavioral disturbance, psychotic disturbance, mood disturbance, and anxiety; I48.91 Unspecified atrial fibrillation; E03.9 Hypothyroidism, unspecified; E87.6 Hypokalemia; J44.9 Chronic obstructive pulmonary disease, unspecified; K02.9 Dental caries, unspecified; K03.81 Cracked tooth; Z79.01 Long term (current) use of anticoagulants; Z79.4 Long term (current) use of insulin; Z87.891 Personal history of nicotine dependence; Z90.5 Acquired absence of kidney; Z66 Do not resuscitate
CPT/HCPCS: 92610-GN; 96365; 97163-GP; 97166-GO; 97530-GO; 97530-GP; J0295; J0610; J0696; J1335; J1815; J2060; J2543; J3475; Q9967